=== PATIENT | female | born 1995 | race Caucasian/White ===

== ENCOUNTER 2023-03-14 21:12 | Outpatient (REF) | payer OTHER, SELFPAY ==
[2023-03-18 15:08] LABS: Age Gdln ACOG Testing Note (.); IGP, rfx Aptima HPV ASCU Note (.)
== END 2023-03-14 21:13 | disposition home or self-care (01) ==
LOC: LAB 21:12
PROVIDERS: PCP Family Medicine; Visit Provider Obstetrics & Gynecology
DX: Z12.4 Encounter for screening for malignant neoplasm of cervix (principal)
CPT/HCPCS: G0145

== ENCOUNTER 2024-04-23 20:05 | Outpatient (REF) | payer OTHER, SELFPAY | END 2024-04-23 20:06 | disposition home or self-care (01) | LOC: LAB 20:05 | PROVIDERS: PCP Family Medicine; Visit Provider Obstetrics & Gynecology | DX: Z01.419 Encounter for gynecological examination (general) (routine) without abnormal findings (principal) | CPT/HCPCS: 87624; 88175 ==

== ENCOUNTER 2025-05-08 14:19 | Outpatient (OUT) | payer OTHER, SELFPAY ==
--- OUTSIDE RECORDS SUMMARY | 2025-05-08 14:00 | XMS_ITS | Encounter Summary ---
Author Organization [facility] Address [address] [place] [address] Care Team Providers Care Stave Cutting Supervisor Name Role Phone Stephen Nolasco MD Primary Care Provider [phone] Reason for Visit * ReasonCommentsGynecologic Exam Encounter Details DateTypeDepartmentCare Team (Latest Contact Info)Vmxmdqaehqn34/05/2025 2:00 PM ESTOffice Visit [facility] [address] [facility] [place] [phone] Ken Floyd DO [address] [facility] [address] [place], [place] [id number] Well woman exam with routine gynecological exam; H/O: hysterectomy; PCOS (polycystic ovarian syndrome); Irritable; Menopausal symptoms Social History Tobacco UseTypesPacks/DayYears UsedDateSmoking Tobacco: BwvspxiYvscyojooz567.8 Started: 2007 Comments:Current Smoker, Viktor quency Unknown Alcohol UseStandard Drinks/WeekCommentsNever0 (1 standard drink = 0.6 oz pure alcohol)caffeine: 2-3 glasses a week teaCommentsNoSex and Gender InformationValueDate RecordedSex Assigned at RlcknEagflr60/10/2023 11:44 AM EDT Legal TifHwtycb84/15/2023 7:06 PM EDTGender XyrbhgpvMhqvws38/10/2023 11:44 AM EDTSexual HynkyitgucaNhknflye78/10/2023 11:44 AM EDTdocumented as of this encounter Last Filed Vital Signs Vital SignReadingTime TakenCommentsBlood Vxgjjrfr891/7205/08/2025 1:41 PM EST Pulse--Temperature--Respiratory Rate--Oxygen Saturation--Inhaled Oxygen Concentration--Cbysae44.3 kg (155 lb)05/08/2025 1:41 PM RQTTrerlb753.8 cm (5' 10 )05/08/2025 1:41 PM ESTBody Mass Index22.24107/08/2024 1:41 PM ESTdocumented in this encounter Plan of Treatment DateTypeDepartmentCare Team (Latest Contact Info)Fhecrrvptaw49/11/2026 1:00 PM ESTProcedure Visit [facility] [address] [facility] [place] [phone] Ken Floyd DO [address] [facility] [place] [address] NameTypePriorityAssociated DiagnosesOrder SchedulePap SmearPathology and CytologyRoutine Well woman exam with routine gynecological exam Ordered: 05/08/2025HPV DNA probe, amplifiedMicrobiologyRoutine Well woman exam with routine gynecological exam Ordered: 05/08/2025hCG, quantitative, pregnancyLabRoutine PCOS (polycystic ovarian syndrome) Ordered: 05/08/2025TSHLabRoutine PCOS (polycystic ovarian syndrome) Ordered: 05/08/2025T4, freeLabRoutine PCOS (polycystic ovarian syndrome) Ordered: 05/08/2025BC and differentialLabRoutine PCOS (polycystic ovarian syndrome) Ordered: 05/08/2025Follicle stimulating hormoneLabRoutine PCOS (polycystic ovarian syndrome) Ordered: 05/08/2025Luteinizing hormoneLabRoutine PCOS (polycystic ovarian syndrome) Ordered: 05/08/2025Hemoglobin W8mXgjDgqzqoi H/O: hysterectomy Irritable Menopausal symptoms Ordered: 05/08/2025DHEA-sulfateLabRoutine PCOS (polycystic ovarian syndrome) Ordered: 05/08/2025DHEALabRoutine PCOS (polycystic ovarian syndrome) Expected: 05/08/2025 (Approximate), Expires: 05/08/2026EstradiolLabRoutine H/O: hysterectomy Irritable Menopausal symptoms Ordered: 05/08/2025ProgesteroneLabRoutine H/O: hysterectomy Irritable Menopausal symptoms Ordered: 05/08/2025documented as of this encounter Visit Diagnoses Diagnosis Well woman exam with routine gynecological exam Routine gynecological examination H/O: hysterectomy Acquired absence of both cervix and uterus PCOS (polycystic ovarian syndrome) Polycystic ovaries Irritable Irritability Menopausal symptoms Symptomatic menopausal or female climacteric states documented in this encounter Care Teams Team MemberRelationshipSpecialtyStart DateEnd Date Stephen Nolasco MD [address] [place] [address] PCP - GeneralGeneral Practice03/14/23documented as of this encounter
--- OUTSIDE RECORDS SUMMARY | 2025-05-08 14:27 | XMS_ITS | Encounter Summary ---
Author Organization [facility] Address [address] [place] [address] Care Team Providers Care Dialysis Registered Nurse Name Role Phone Stephen Nolasco MD Primary Care Provider [phone] Encounter Details DateTypeDepartmentCare Team (Latest Contact Info)Vzmoagacfgh70/05/2025Travel Social History Tobacco UseTypesPacks/DayYears UsedDateSmoking Tobacco: FxtpfyqOigyeofajo613.8 Started: 2007 Comments:Current Smoker, Viktor quency Unknown Alcohol UseStandard Drinks/WeekCommentsNever0 (1 standard drink = 0.6 oz pure alcohol)caffeine: 2-3 glasses a week teaCommentsNoSex and Gender InformationValueDate RecordedSex Assigned at HxallQusncn03/10/2023 11:44 AM EDT Legal QybTwzmyy99/15/2023 7:06 PM EDTGender KkohwfquOebmwj88/10/2023 11:44 AM EDTSexual TqmzggqmknhCsompvbo44/10/2023 11:44 AM EDTdocumented as of this encounter Plan of Treatment DateTypeDepartmentCare Team (Latest Contact Info)Gosvtpnpobl67/11/2026 1:00 PM ESTProcedure Visit [facility] [address] [place] [address] Ken Floyd DO [address] [place] [address] documented as of this encounter Visit Diagnoses Not on filedocumented in this encounter Care Teams Team MemberRelationshipSpecialtyStart DateEnd Date Stephen Nolasco MD [address] [place], [place] [phone] PCP - GeneralGeneral Practice03/14/23documented as of this encounter
--- OUTSIDE RECORDS SUMMARY | 2025-05-08 14:27 | XMS_ITS | Encounter Summary ---
Author Organization [facility] Address [address] [facility] [facility], [address] [place] [address] Care Team Providers Care Assembler Fitter Name Role Phone Stephen Nolasco DO Primary Care Provider Encounter Details DateTypeDepartmentCare Team (Latest Contact Info)Bqewcpiyxre69/23/2025Results Follow-Up [facility] [address] [place], [place] [phone] Stephen Nolasco DO [address] [place] [address] Social History Tobacco UseTypesPacks/DayYears UsedDateSmoking Tobacco: Some DlgzLeoafefbxi728.8 Started: 07/04/2007Smokeless Tobacco: CurrentAlcohol UseStandard Drinks/Week CommentsYes2 (1 standard drink = 0.6 oz pure alcohol)sociallyOverall Financial Resource Strain (CARDIA)AnswerDate RecordedHow hard is it for you to pay for the very basics like food, housing, medical care, and heating?Not hard at all 04/12/2023HQ-2AnswerDate RecordedPHQ-9 Total Nwbzw268PRAPARE - TransportationAnswerDate RecordedLack of Transportation (Medical)Not on file 04/12/2023In the past 12 months, has lack of transportation kept you from meetings, work, or from getting things needed for daily living?No04/12/2023 Housing Stability Vital SignAnswerDate RecordedUnable to Pay for Housing in the Last YearNot on file04/12/2023Number of Places Lived in the Last YearNot on file 10/10/2023In the last 12 months, was there a time when you did not have a steady place to sleep or slept in ashelter (including now)?No04/12/2023Housing Stability Vital SignAnswerDate RecordedIn the last 12 months, was there a time when you were not able to pay the mortgage or rent on time?No04/23/2025In the past 12 months, how many times have you moved where you were living? At any time in the past 12 months, were you homeless or living in a longterm (including now)?No04/23/2025UDIT-CAnswerDate RecordedQ1: How often do you have a drink containing alcohol?Never04/23/2025Q2: How many drinks containing alcohol do you have on a typical day when you are drinking?Patient does not drink 04/23/2025Q3: How often do you have six or more drinks on one occasion?Never 04/23/2025Hunger Vital SignAnswerDate RecordedWithin the past 12 months, you worried that your food would run out before you got the money to buymore.Never true04/23/2025Within the past 12 months, the food you bought just didn't last and you didn't have money to get more.Never true04/23/2025PRAPARE - TransportationAnswerDate RecordedIn the past 12 months, has lack of transportation kept you from medical appointments or from getting medications?No 04/23/2025In the past 12 months, has lack of transportation kept you from meetings, work, or from getting things needed for daily living?No04/23/2025HC UtilitiesAnswerDate RecordedIn the past 12 months has the electric, gas, oil, or water company threatened to shut off services in your home?No04/23/2025 Interpersonal Safety Domain Source: IP Abuse ScreeningAnswerDate Recorded Physical tlrusEopkcu45/29/2025Verbal nyxzyUpfgjb20/29/2025Emotional abuseDenies 08/01/2024Financial blgfwUtmdxj03/29/2025Sexual bwfctGotbkd49/29/2025 CommentsNoSex and Gender InformationValueDate RecordedSex Assigned at Jnktde45/ 9:11 AM EDTLegal MpfRsgngj23/06/2019 9:47 AM EDTGender Identity Gliryy2704/16/2025 9:11 AM EDTSexual VfwfrkozjwiBfezuxth91/14/2025 9:11 AM EDT documented as of this encounter Plan of Treatment DateTypeDepartmentCare Team (Latest Contact Info)Oyemfsgjzaj98/22/2026 10:30 AM EDTOffice Visit [facility] [address] [place] [address] Stephen Nolasco DO [address] [place] [address] Annual physicaldocumented as of this encounter Visit Diagnoses Not on filedocumented in this encounter Care Teams Team MemberRelationshipSpecialtyStart DateEnd Date Stephen Nolasco DO [address] [place] [address] PCP - GeneralFamily Zloicojy75/10/23documented as of this encounter
--- OUTSIDE RECORDS SUMMARY | 2025-05-08 14:27 | XMS_ITS | Clinical Summary ---
Author Organization [facility] Address [address] [place] [address] Care Team Providers Care Photo Mask Inspector Name Role Phone No, Physician Primary Care Provider Unavailabl e Allergies Active AllergyReactionsCriticalityNoted DateCommentsCodeineGI Intolerance 12/23/20187201BwfmtqwfthtDtzjw02/22/2430QalujewfXxpak89/22/2019DiazepamHives 12/23/2018 Medications MedicationSigDispense QuantityRefillsLast FilledStart DateEnd DateStatus multivitamin (THERAGRAN) per tablet Take 1 tablet by mouth daily .Active Social History Tobacco UseTypesPacks/DayYears UsedDateSmoking Tobacco: Every DaySmokeless Tobacco: NeverAlcohol UseStandard Drinks/WeekCommentsNever0 (1 standard drink = 0.6 oz pure alcohol)AUDIT-CAnswerDate RecordedFrequency of Alcohol Consumption Never12/23/2018Average Number of DrinksNot on file12/23/2018Frequency of Binge DrinkingNot on file12/23/2018CommentsNoSex and Gender InformationValue Date RecordedSex Assigned at BirthNot on fileLegal BgfVqccnb55/22/2019 8:58 PM EDTGender IdentityNot on fileSexual OrientationNot on file Last Filed Vital Signs Vital SignReadingTime TakenCommentsBlood Vgaigwvz630/6906 1:15 AM EDT Fytqh0198 1:15 AM KNKFjwdoarsmbp14.7 ??C (98.1 ??F)12/24/2018 1:00 AM EDTRespiratory Pfju306412/24/2018 1:15 AM EDTOxygen Usdoxpgvqf47%12/24/2018 1:15 AM EDTInhaled Oxygen Concentration--Uxbbhk28 kg (130 lb)12/23/2018 9:02 PM EDT Zlopqm598.7 cm (5' 8 )12/23/2018 9:02 PM EDTBody Mass Index19.77012/23/2018 9:02 PM EDT Plan of Treatment Health MaintenanceDue DateLast DoneCommentsMMR Vaccines (1 of 1 - Standard series)1994Wellness Visit1996Depression Screening/Follow-Up (PHQ-2/9)2005Varicella Vaccines (1 of 2 - 13+ 2-dose series)2006HIV Scjdparol08/15/2008Hepatitis C Cymbeehee64/15/2011Hepatitis B Vaccines (1 of 3 - 19+ 3-dose series)2012Tetanus/Diphtheria/Pertussis (1 - Tdap)2012Pap Smear2014HPV Vaccines (1 - 3-dose SCDM series)2020Cervical Cancer Gqdvtmjpz46/15/2023HPV/Bckowo293COVID-19 Vaccine (1 - season) 2025Influenza Vaccine (#1)2025Zoster Vaccines (1 of 2)2043RSV Vaccines (1 - 1-dose 75+ series)2068HIB VaccinesAged OutNo longer eligible based on patient's age to complete this topicHepatitis A VaccinesAged OutNo longer eligible based on patient's age to complete this topicIPV VaccinesAged OutNo longer eligible based on patient's age to complete this topicMeningococcal ACWY VaccineAged OutNo longer eligible based on patient's age to complete this topicMeningococcal B VaccineAged OutNo longer eligible based on patient's age to complete this topicPneumococcal VaccineAged OutNo longer eligible based on patient's age to complete this topicRotavirus VaccinesAged OutNo longer eligible based on patient's age to complete this topic Insurance MemberSubscriberPlan / Payer (Effective 2018-Present)Name:Ozzie Shea Relation to Subscriber:SelfName:Ozzie Shea Payer ID:Not on file Group ID:[id number] Type:Not on file Address: [place] [id number] Care Teams Team MemberRelationshipSpecialtyStart DateEnd Date No, Physician [facility] PCP - General12/23/18
--- OUTSIDE RECORDS SUMMARY | 2025-05-08 14:27 | XMS_ITS | Clinical Summary ---
Author Organization [facility] Address [address] [facility] [place] [address] Care Team Providers Care Fuels Sales Representative Name Role Phone Stephen Nolasco MD Primary Care Provider [phone] Allergies Active AllergyReactionsCriticalityNoted FchnSrrvjhwnFbtplj10/23/2019 Other reaction(s): Unknown Other Reaction(s): Anaphylactic shock Romano Flavoring Agent (Non-Screening)RjtjemxjsmhLdap75/07/2023odeineGI intolerance,JalcTja3212/23/2018 Other Reaction(s): Dyspepsia Other reaction(s): Unknown Other Reaction(s): Dyspepsia, GI Intolerance, Unknown Other Reaction(s): GI Intolerance DiazepamGI intolerance,Hives,FcxdZwd3012/23/2018 Other Reaction(s): rash/vomiting Other reaction(s): Unknown Other Reaction(s): Unknown HydrocodoneHives,AalgKoa0312/23/2018 Other reaction(s): Unknown Other Reaction(s): Unknown, Unknown Hydrocodone-AcetaminophenHives,UpmoQwf4303/10/20230709LpwkaflkldngvpfSlsvHzr38/07/2023 CwdoesopzNvbiGrg32/28/2022 Other Reaction(s): Unknown TramadolHives,QlzbHwz1312/23/2018 Other reaction(s): Unknown Other Reaction(s): Unknown, Vomiting Medications MedicationSigDispense QuantityRefillsLast FilledStart DateEnd DateStatus propranolol (Inderal) 20 MG tablet Take 20 mg by mouth in the morning.03/08/2023ctive magnesium oxide (Mag-Ox) 400 (241.3 Mg) MG tablet Take 400 mg by mouth in the morning.07/01/2022ctive Encounters DateTypeDepartmentCare MjikKhbobxtsvnv42/05/2025 2:00 PM ESTOffice Visit [facility] [place] [address] [place] [address] Ken Floyd DO Well woman exam with routine gynecological exam; H/O: hysterectomy; PCOS (polycystic ovarian syndrome); Irritable; Menopausal orhqpbst25/05/2025amboo flowsheet [facility] [address] [place] [address] Ken Floyd DO 05/08/2025Travelfrom Last 3 Months Family History Medical HistoryRelationNameCommentsDiabetesMaternal GrandfatherMental illness Paternal GrandmotherPsoriasisNeg HxRelationNameStatusCommentsDaughterAliveFather AliveMaternal GrandfatherAliveMaternal GrandmotherAliveMotherAlivePaternal GrandfatherAlivePaternal GrandmotherAliveSiblingAliveSonAlive Social History Tobacco UseTypesPacks/DayYears UsedDateSmoking Tobacco: QazkuhgPwrlebvqsy521.8 Started: 2007 Tobacco Cessation:Counseling Given: Not Answered Comments:Current Smoker, Frequency Unknown Alcohol UseStandard Drinks/WeekCommentsNever0 (1 standard drink = 0.6 oz pure alcohol)caffeine: 2-3 glasses a week teaCommentsNoSex and Gender InformationValueDate RecordedSex Assigned at ZtxzdPuaaid58/10/2023 11:44 AM EDT Legal SqdOtxohz67/15/2023 7:06 PM EDTGender QkzjghudJfamqg57/10/2023 11:44 AM EDTSexual QnoscfpmfjpHqbksowb68/10/2023 11:44 AM EDT Last Filed Vital Signs Vital SignReadingTime TakenCommentsBlood Bztrjysr876/7205/08/2025 1:41 PM EST Pulse--Temperature--Respiratory Rate--Oxygen Saturation--Inhaled Oxygen Concentration--Fdrgpr78.3 kg (155 lb)05/08/2025 1:41 PM VBHCsaump256.8 cm (5' 10 )05/08/2025 1:41 PM ESTBody Mass Index22.241111/2024 1:41 PM EST Plan of Treatment DateTypeDepartmentCare Team (Latest Contact Info)Oojnkhxuroo73/11/2026 1:00 PM ESTProcedure Visit [facility] [address] [place] [address] Ken Floyd DO [address] [facility] [place] [address] Insurance Care Teams Team MemberRelationshipSpecialtyStart DateEnd Date Stephen Nolasco MD [address] [place] [address] PCP - GeneralGeneral Practice03/14/23
--- OUTSIDE RECORDS SUMMARY | 2025-05-08 14:27 | XMS_ITS | Clinical Summary ---
Author Organization [facility] Address [address] [place] [address] Care Team Providers Care Software Educator Name Role Phone Stephen Nolasco DO Primary Care Provider [phone] Allergies Active AllergyReactionsCriticalityNoted BggdTwxpgxxlOrtoie97/23/2019 Other reaction(s): Unknown OfrrerkKhqbdqvjw79/22/2019 Other reaction(s): Unknown LispmtdiGqaky93/22/2019 Other reaction(s): Unknown AtlofbxrhaiErgyk50/22/2019 Other reaction(s): Unknown Hydrocodone-Tccevjtzldnsf82/05/7240Ydzmylikndqdatd88/05/2013TramadolHives 12/23/2018 Other reaction(s): Unknown Medications MedicationSigDispense QuantityRefillsLast FilledStart DateEnd DateStatus Premarin 0.3 MG tablet Take 0.3 mg by mouth daily.01/07/2021ctive Multiple Vitamin (Multi-Vitamins) tablet Take 1 tablet by mouth At bedtime.Active bacitracin 500 UNIT/GM Ointment Apply to burn site twice daily 28 g 1Active Social History Tobacco UseTypesPacks/DayYears UsedDateSmoking Tobacco: Every DayCigarettes Smokeless Tobacco: NeverAlcohol UseStandard Drinks/WeekCommentsNot Currently0 (1 standard drink = 0.6 oz pure alcohol)CommentsNoSex and Gender InformationValueDate RecordedSex Assigned at BirthNot on fileLegal SexFemale 01/13/2021 8:02 PM EDTGender IdentityNot on fileSexual OrientationNot on file Last Filed Vital Signs Vital SignReadingTime TakenCommentsBlood Kjvjudsw908/6707/ 8:15 PM EDT Ahfsj2757/ 8:15 PM IBZSgswctpzlab24.9 ??C (98.4 ??F)01/13/2021 8:15 PM EDTRespiratory Bsxf012001/13/2021 8:15 PM EDTOxygen Qlhjuylsje81%01/13/2021 8:15 PM EDTInhaled Oxygen Concentration--Weight--Height--Body Mass Index-- Plan of Treatment Health MaintenanceDue DateLast DoneCommentsHEPATITIS C VIRUS KRFYVXGBK1993 RUGLGVH93 1993HIV SCREENING XUPQZWXWGG74/15/2008HEP B VACCINE (1 of 3 - 19+ 3-dose series)2012TDAP (ADULT)2012CERVICAL CANCER SCREENING KVWEPSLKYF00/15/2014HPV VACCINE (1 - 3-dose SCDM series)2020COVID-19 VACCINE (2024- season)2025INFLUENZA VACCINE (#1)2025 PNEUMOCOCCAL VACCINE SERIESAged OutNo longer eligible based on patient's age to complete this topic Insurance Care Teams Team MemberRelationshipSpecialtyStart DateEnd Date Stephen Nolasco DO [address] [place] [address] [facility] - [facility]21
--- OUTSIDE RECORDS SUMMARY | 2025-05-08 14:27 | XMS_ITS | Clinical Summary ---
Author Organization [email or web address] [facility] tem Address [id number] [address] [place] [address] Care Team Providers Care Production Hand Name Role Phone Unavailable Primary Care Provider Unavailabl e Allergies Active AllergyReactionsCriticalityNoted IhilFspvbqgsVfdulaeRairSxn93/22/2019 Other Reaction(s): GI Intolerance TtxlpkgrBgoen55/22/8945VjmkvytsmpsFnbmd18/22/5642Feaewxpyhcjwegu45/10/2024 Cyuhuclye69/10/0927PppcwapxVluya05/22/2019 Medications MedicationSigDispense QuantityRefillsLast FilledStart DateEnd DateStatus magnesium oxide (MAGOX) 400 mg tablet Take 1 tablet (400 mg total) by mouth in the morning.07/13/2023ctive propranoloL (INDERAL) 20 mg tablet Take 1 tablet (20 mg total) by mouth in the morning.04/12/2024ctive cyanocobalamin (VITAMIN B-12) 1,000 mcg/mL injection Inject 1 mL (1,000 mcg total) into the appropriate muscle every 30 (thirty) days.04/12/2024ctive Social History Tobacco UseTypesPacks/DayYears UsedDateSmoking Tobacco: Every Day Vaping/E-cigarettesSmokeless Tobacco: Never Tobacco Cessation:Ready to Q uit: Not Asked; Counseling Given: Not Answered ChildcareAnswerDate EeuebwgmGgsdhufnsZnqkcja30/10/2019EmploymentAnswerDate YgcdidibKlmadeyuysYhovxzx06/10/2019Hunger ScreeningAnswerDate RecordedWithin the past 12 months we worried whether our food would run out before we got money to buy more.Never True06/12/2024Within the past 12 months the food we bought just didn't last and we didn't have money to get more.Never True4Purpose - LifeAnswerDate RecordedPurpose and direction in lbrdOywpckr54/10/2021 CommentsUnknownSex and Gender InformationValueDate RecordedSex Assigned at Not on fileLegal AexDkcjlv14/04/2015 12:37 PM EDTGender IdentityNot on file Sexual OrientationNot on file Last Filed Vital Signs Vital SignReadingTime TakenCommentsBlood Qhlvosnu335/6806/12/2024 10:14 PM EST Ncbmf433406/12/2024 10:38 PM OKFMokptcumyps18.2 ??C (97.2 ??F)06/12/2024 10:14 PM ESTRespiratory Snwx944406/12/2024 10:38 PM ESTOxygen Ckighdbgwu022%06/12/2024 10:30 PM ESTInhaled Oxygen Concentration--Djeszp30.8 kg (165 lb)06/12/2024 10:14 PM NGQFhfahp041.8 cm (5' 10 )06/12/2024 10:14 PM ESTBody Mass Index23.68 06/12/2024 10:14 PM EST Plan of Treatment Not on file Medical Devices Not on file Insurance
--- OUTSIDE RECORDS SUMMARY | 2025-05-08 14:27 | XMS_ITS | Clinical Summary ---
Author Organization [facility] Address [address] [place] [id number] Care Team Providers Care Credit And Collection Manager Name Role Phone Negro Nolascoory Poppy QUINTERO Primary Care Provider [phone] Allergies Active AllergyReactionsCriticalityNoted DateCommentsCherry FlavorAnaphylaxis 12/24/20183683SkljfwwWvmbjth19/23/1065HjwulcskuvibfmxSwqs77/24/2022Hydrocodone Bmsknza4712/24/20186115GzflbgclrCzxjxzb62/28/0106RwundiozRggkygc00/23/2019Diazepam Vvadzud6112/24/2018 Medications MedicationSigDispense QuantityRefillsLast FilledStart DateEnd DateStatus hydrOXYzine HCl (ATARAX) 25 mg tablet Take 25 mg by mouth three times daily as needed for anxiety.05/21/2020Active multivitamin tablet Take 1 tablet by mouth once daily.Active acyclovir (ZOVIRAX) 400 mg tablet Take 1 tablet by mouth twice daily as needed.Active cyanocobalamin 1,000 mcg/mL inject 1 (ONE) ml intramuscularly every month01/11/2022ctive EPINEPHrine (EPIPEN) 0.3 mg/0.3 mL auto-injector Inject 0.3 mg intramuscularly.02/03/2021ctive BD LUER-JUN SYRINGE 3 mL 25 gauge x 1 USE DIRECTED ONCE MONTHLY WITH VITAMIN B1201/11/2022ctive ondansetron (ZOFRAN) 4 mg tablet Indications:Intractable chronic post-traumatic headache,Intractable chronic migraine without aura and without status migrainosusTake 1 tablet by mouth every 8 hours as needed for nausea/vomiting. 20 tablet ctive topiramate (TOPAMAX) 25 mg tablet Indications:Intractable chronic post-traumatic headache,Intractable chronic migraine without aura and without status migrainosusTake 50-100mg daily as tolerated. 120 tablet ctive propranolol (INDERAL) 20 mg tablet Take 1 tablet by mouth once daily. 30 tablet 11003/08/2023ctive eletriptan (RELPAX) 40 mg tablet Take 1 tablet by mouth as needed. TAKE AT ONSET OF MIGRAINE HEADACHE. May repeat dose in 2 hours ifneeded. No more than 2 tablets in 24 hours. 9 tablet ctive magnesium oxide (MAG-OX) 400 mg (241.3 mg magnesium) tablet Take 1 tablet by mouth once daily. 30 tablet ctive Active Problems ProblemNoted DateDiagnosed DateIntractable post-traumatic qucuptbc94/26/2023 Intractable chronic migraine without aura and without status migrainosus 07/29/2022ilateral occipital ytbshkmoj65/26/2023AD (generalized anxiety disorder)07/29/2022sychogenic nonepileptic wxhqyhz7803/30/20222635Emvccpt67/26/2022 Seizure-like cznpsadi12/25/2022 Social History Tobacco UseTypesPacks/DayYears UsedDateSmoking Tobacco: Every DayCigarettes Smokeless Tobacco: Never Tobacco Cessation:Ready to Q uit: Not Asked Alcohol UseStandard Drinks/WeekCommentsYes0 (1 standard drink = 0.6 oz pure alcohol)rarePHQ-2AnswerDate RecordedPHQ-2 evcap858rea Deprivation Index AnswerDate RecordedNational Score (1-100), lower number is lower risk89 03/08/2023State Score (1-10), lower number is lower pija53503/08/2023ata from: https://www.neighborhoodatlas.medicine.[facility].edu/. Last address used for [address] [facility]03/08/2023CommentsNoSex and Gender Information ValueDate RecordedSex Assigned at PcnqoKfioel92/01/2022 11:04 AM EDTLegal Sex Dlkioz8910/25/2014 3:08 PM EDTGender OjtojndoAaebfu26/01/2022 11:04 AM EDTSexual LusdpudmpxsDcfxopli08/01/2022 11:04 AM EDT Last Filed Vital Signs Vital SignReadingTime TakenCommentsBlood Hotkcfuw530/75003/08/2023 9:17 AM EDT Kknxs5650/05/2023 9:17 AM HLWSsbpowmsqfd51.8 ??C (98.2 ??F)08/20/2022 9:33 AM ESTRespiratory Ggfr107003/30/2022 4:00 PM EDTOxygen Casghjzlhy70%03/08/2023 9:17 AM EDTInhaled Oxygen Concentration--Rziinm48.4 kg (144 lb 3.2 oz)03/08/2023 9:17 AM NTFApqaej780.8 cm (5' 10 )03/08/2023 9:17 AM EDTBody Mass Index20.69 03/08/2023 9:17 AM EDT Plan of Treatment Health MaintenanceDue DateLast DoneCommentsDepression Prpuhajbb60/15/2011HIV Chtybkbdw25/15/2011Hepatitis C Mmtfbwwpn23/15/2011Hepatitis B Vaccine (1 of 3 - 19+ 3-dose series)2012Pneumococcal Vaccine (1 of 2 - PCV)2012 Cervical Cancer Uujotbqdc70/15/2014HPV Vaccine (1 - 3-dose SCDM series) 2020Covid-19 Vaccine (1 - season)2025Influenza Vaccine (#1) 2025DTaP,Tdap,Td Vaccine (2 - Td or Tdap) Insurance * Guarantor: Ozzie Shea TypeRelation to PatientDate of PhoneBilling VamkvljUbxhxzskGkkf1993 [address] [facility] [address] [place] [address] MemberSubscriberPlan / Payer (Effective 2022-Present)Name:Ozzie Shea Relation to Subscriber:SelfName:Ozzie Shea Payer ID:[id number] (NAIC) Group ID:[id number] Type:Medicaid Address: [place] [id number] Care Teams Team MemberRelationshipSpecialtyStart DateEnd Date Stephen Nolasco DO PCP - GeneralFamily Medicine10/25/14
--- OUTSIDE RECORDS SUMMARY | 2025-05-08 14:27 | XMS_ITS | Encounter Summary ---
Author Organization [facility] Address [address] [place] [address] Care Team Providers Care Starch Dumper Name Role Phone Stephen Nolasco MD Primary Care Provider [phone] Encounter Details DateTypeDepartmentCare Team (Latest Contact Info)Ndjtkflcuip58/05/2025amboo flowsheet [facility] [address] [place] [address] Ken Floyd DO [address] [facility] [address] [place], [place] [address] Social History Tobacco UseTypesPacks/DayYears UsedDateSmoking Tobacco: LwivyvvXlopmspfab807.8 Started: 2007 Comments:Current Smoker, Viktor quency Unknown Alcohol UseStandard Drinks/WeekCommentsNever0 (1 standard drink = 0.6 oz pure alcohol)caffeine: 2-3 glasses a week teaCommentsNoSex and Gender InformationValueDate RecordedSex Assigned at QimvoNrzztz84/10/2023 11:44 AM EDT Legal QxnWeoobf02/15/2023 7:06 PM EDTGender HpfiujbqVcpejn47/10/2023 11:44 AM EDTSexual EdqcdlsccwqSmnqfvkt14/10/2023 11:44 AM EDTdocumented as of this encounter Plan of Treatment DateTypeDepartmentCare Team (Latest Contact Info)Psbacaivqbc43/11/2026 1:00 PM ESTProcedure Visit [facility] [address] [place] [address] Ken Floyd, DO [address] [place] [address] documented as of this encounter Visit Diagnoses Not on filedocumented in this encounter Care Teams Team MemberRelationshipSpecialtyStart DateEnd Date Stephen Nolasco MD [address] [place] [address] PCP - GeneralGeneral Practice03/14/23documented as of this encounter
--- OUTSIDE RECORDS SUMMARY | 2025-05-08 14:27 | XMS_ITS | Clinical Summary ---
Author Organization [facility] Address [address] [facility], [address] [place] [address] Care Team Providers Care Hybrid Tester Name Role Phone Stephen Nolasco Primary Care Provider [phone] Allergies Active AllergyReactionsCriticalityNoted ZacuYojbzeglCyhkztsMznnKjj79/10/2024 Lhemjccqhrycslw32/10/6135Jifizsyto88/10/2024 Medications MedicationSigDispense QuantityRefillsLast FilledStart DateEnd DateStatus magnesium oxide (MAG-OX) 400 (240 Mg) MG tablet Take 1 tablet by mouth daily03/24/2023ctive Multiple Vitamin (MULTI-VITAMINS) TABS Take 1 tablet by mouth nightlyActive EPINEPHrine (EPIPEN) 0.3 MG/0.3ML SOAJ injection Inject 0.3 mLs into the skin once for 1 dose 1 each ctive propranolol (INDERAL) 20 MG immediate release tablet Indications:Chronic migraine w/o aura w/o status migrainosus, not intractable TAKE 1 TABLET BY MOUTH DAILY 90 tablet 5Active cyanocobalamin 1000 MCG/ML injection Indications:B12 deficiencyInject 1 mL into the muscle every 30 days 6 mL 1105Active SYRINGE-NEEDLE, DISP, 3 ML 25G X 1 3 ML MISC Indications:B12 deficiency1 each by Does not apply route every 30 days 3 each 5Active SYRINGE-NEEDLE, DISP, 3 ML (B-D 3CC LUER-JUN SYR 23GX1 ) 23G X 1 3 ML MISC Indications:B12 deficiencyUSE DIRECTED WITH vitamin b12 injections once a month 3 each Discontinued(Therapy completed) cyanocobalamin 1000 MCG/ML injection Indications:B12 deficiencyINJECT 1ML INTRAMUSCULARLY EVERY 30 DAYS 3 mL Discontinued(REORDER) Active Problems No known active problems Encounters DateTypeDepartmentCare OniuLhluyuiiild88/23/2025Results Follow-Up [address] [address] Stephen Nolasco DO 04/23/2025 11:00 AM EDTOffice Visit [address] [address] Stephen Nolasco DO Chronic fatigue (Primary Dx); B12 deficiency; Iron qabwharciy53/21/2025Orders Only [address] [address] Stephen Nolasco DO Chronic fatigue; Iron deficiency; B12 anacgpikmc36/31/2025Refill [address] [address] Stephen Nolasco DO Medication Refillfrom Last 3 Months Immunizations ImmunizationAdministration DatesNext CrzPMP2512/23/1993,1993,1993DTaP bssundz7207/30/1997,09/22/1994HPV (Human Papilloma Virus)Fyxebxn6006/02/2007, 12/30/2006,10/28/2006Hep B, ENGERIX-B, RECOMBIVAX-HB, (age - 19y), IM, 0.5mL1993,1993,1993Hib gcpmdjw7909/22/1994,1993,1993 Influenza Virus Vukoxre7004/11/2003MMR, PRIORIX, M-M-R II, (age 12m+), SC, 0.5mL 05/27/1999,09/27/1994Meningococcal ACWY, MENACTRA (MenACWY-D), (age 9m-55y), IM, 0.5mL10/25/2008Poliovirus, IPOL, (age 6w+), SC/IM, 0.5mL07/30/1997,1993, 1993,1993TDaP, ADACEL (age 10y-64y), BOOSTRIX (age 10y+), IM, 0.5mL 01/23/2016,10/25/2008 Family History Medical HistoryRelationNameCommentsAllergy (Severe)Brother 1Jonathan cothern DiabetesBrother 1Jonathan cothernImmune DisorderBrother 1Jonathan cothernHigh Blood PressureBrother 2Thomas boatrightDiabetesMaternal GrandfatherLarry felver RelationNameStatusCommentsBrother 1Jonathan cothernBrother 2Thomas sallie AliveMaternal GrandfatherLarry felver Social History Tobacco UseTypesPacks/DayYears UsedDateSmoking Tobacco: Some PvqkPsjqepvfug113.8 Started: 07/04/2007Smokeless Tobacco: Current Tobacco Cessation:Ready to Q uit: No; Counseling Given: Yes Alcohol UseStandard Drinks/WeekCommentsYes2 (1 standard drink = 0.6 oz pure alcohol)sociallyOverall Financial Resource Strain (CARDIA)AnswerDate RecordedHow hard is it for you to pay for the very basics like food, housing, medical care, and heating?Not hard at all04/12/2023HQ-2AnswerDate RecordedPHQ-9 Total Score1 04/16/2025PRAPARE - TransportationAnswerDate RecordedLack of Transportation (Medical)Not on file04/12/2023In the past 12 months, has lack of transportation kept you from meetings, work, or from getting things needed for daily living?No 04/12/2023Housing Stability Vital SignAnswerDate RecordedUnable to Pay for Housing in the Last YearNot on file04/12/2023Number of Places Lived in the Last YearNot on file04/12/2023In the last 12 months, was there a time when you did not have a steady place to sleep or slept in ashelter (including now)?No 04/12/2023Housing Stability Vital SignAnswerDate RecordedIn the last 12 months, was there a time when you were not able to pay the mortgage or rent on time?No 04/23/2025In the past 12 months, how many times have you moved where you were living?t any time in the past 12 months, were you homeless or living in a fpc (including now)?No04/23/2025UDIT-CAnswerDate RecordedQ1: How often do you have a drink containing alcohol?Never04/23/2025Q2: How many drinks containing alcohol do you have on a typical day when you are drinking?Patient does not drink04/23/2025Q3: How often do you have six or more drinks on one occasion?Never04/23/2025Hunger Vital SignAnswerDate RecordedWithin the past 12 months, you worried that your food would run out before you got the money to buy more.Never true04/23/2025Within the past 12 months, the food [...] Domain Source: IP Abuse ScreeningAnswerDate Recorded Physical nhlopQplakz50/29/2025Verbal sdshkNqolij71/29/2025Emotional abuseDenies 08/01/2024Financial nrhelEcaqpm20/29/2025Sexual bycclKwkata63/29/2025 CommentsNoSex and Gender InformationValueDate RecordedSex Assigned at Lcjbdj5904/16/2025 9:11 AM EDTLegal JtjLeabtz42/06/2019 9:47 AM EDTGender Identity Womhvv0004/16/2025 9:11 AM EDTSexual YvkhxapfmyrChbvssbj04/14/2025 9:11 AM EDT Last Filed Vital Signs Vital SignReadingTime TakenCommentsBlood Xvayjjyi300/8210 11:06 AM EDT Tvgys654404/23/2025 11:06 AM DHKRvcqqsecwdc54.4 ??C (97.5 ??F)04/23/2025 11:06 AM EDTRespiratory Mmgj187108/01/2024 12:30 PM ESTOxygen Kzrehhomop63%04/23/2025 11:06 AM EDTInhaled Oxygen Concentration--Todlci10.8 kg (153 lb 12.8 oz)04/23/2025 11:06 AM CPCZcujqh870.8 cm (5' 10 )04/23/2025 11:06 AM EDTBody Mass Index22.07 04/23/2025 11:06 AM EDT Plan of Treatment DateTypeDepartmentCare Team (Latest Contact Info)Vhhhtlylygd50/22/2026 10:30 AM EDTOffice Visit [facility] [address] [place] [address] Stephen Nolasco, [address] [place] [address] Annual physicalHealth MaintenanceDue DateLast DoneCommentsVaricella vaccine (1 of 2 - 13+ 2-dose series)2006HIV ibmouk1406/17/2008Hepatitis C screen 2011Pneumococcal 0-49 years Vaccine (1 of 2 - PCV)2012Flu vaccine (#1)/03/2003COVID-19 Vaccine (1 - season)2025 DTaP/Tdap/Td vaccine (8 - Td or Tdap)/, 10/25/2008, 07/30/1997, Additional history existsDepression Wpsjxe38, 04/16/2025Hepatitis B ifbcghcHjifswysh36/02/1994, 1993, 1993Hib gbhlyabOodmslwhk30/22/1995, 1993, 1993Polio vaccineCompleted 07/30/1997, 1993, 1993, Additional history existsHPV vaccine Cluddnacz01/30/2007, 12/30/2006, 10/28/2006Meningococcal (ACWY) vaccineAged Out 10/25/2008No longer eligible based on patient's age to complete this topic Hepatitis A vaccineAged OutNo longer eligible based on patient's age to complete this topicMeningococcal B vaccineAged OutNo longer eligible based on patient's age to complete this topic Procedures Procedure NamePriorityDate/TimeAssociated DiagnosisCommentsFERRITINRoutine 04/23/2025 11:40 AM EDT Iron deficiency TSH REFLEX TO KJ3Oihapdm40/21/2025 11:40 AM EDT Chronic fatigue VITAMIN B12 & WLRXYWKmmason31/21/2025 11:40 AM EDT Chronic fatigue B12 deficiency IRON AND IDYIRfafbtq52/21/2025 11:40 AM EDT Chronic fatigue Iron deficiency C-REACTIVE ZJNIOUUNlilekf36/21/2025 11:40 AM EDT Chronic fatigue COMPREHENSIVE METABOLIC ZAUAPIkgdpaq94/21/2025 11:40 AM EDT Chronic fatigue CBC WITH AUTO GFGLADLDYVOUJfnmbhk28/21/2025 11:40 AM EDT Chronic fatigue from Last 3 Months Results * (ABNORMAL) Vitamin B12 & Folate (04/23/2025 11:40 AM EDT)ComponentValueRef RangeTest MethodAnalysis TimePerformed AtPathologist SignatureVitamin B-240691 (H)232 - 1245 pg/mL04/24/2025 2:11 AM EDTMERCY LABORATORIESComment: Performed at [facility], [address] [place] [address] . Folate>40.0(H)4.8 - 24.2 ng/mL04/24/2025 2:11 AM EDTMTi-Bi TechnologyY LABORATORIESComment: Performed at [facility], [address] [place] [address] . Specimen (Source)Anatomical Location / LateralityCollection Method / Volume Collection TimeReceived TimeBloodBLOOD SPECIMEN / Skfksls6304/23/2025 11:40 AM EDT 04/23/2025 2:29 PM EDT Narrative Authorizing ProviderResult TypeResult StatusDameron Hospital DOCHEMISTRY ORDERABLESFinal ResultPerforming OrganizationAddressCity/State/ZIP CodePhone Number [facility] [address] [place] [address], [facility] [phone] [address], [facility] [phone] * TSH reflex to FT4 (04/23/2025 11:40 AM EDT)ComponentValueRef RangeTest Method Analysis TimePerformed AtPathologist SignatureTSH1.9000.440 - 3.860 uIU/mL 04/23/2025 3:23 PM [facility] LABComment: Free T4 will automatically reflex ??with a TSH result of <0.270 or >4.200 Specimen (Source)Anatomical Location / LateralityCollection Method / Volume Collection TimeReceived TimeBloodBLOOD SPECIMEN / Xwocrhk3704/23/2025 11:40 AM EDT 04/23/2025 2:32 PM EDT Narrative Authorizing ProviderResult TypeResult [facility] DOCHEMISTRY ORDERABLESFinal ResultPerforming OrganizationAddressCity/State/ZIP CodePhone Number [facility] [address] [place] [address], [facility] [phone] * (ABNORMAL) CBC with Auto Differential (04/23/2025 11:40 AM EDT)ComponentValue Ref RangeTest MethodAnalysis TimePerformed AtPathologist SignatureWBC6.54.8 - 10.8 K/uL04/23/2025 2:43 PM [facility] LABRBC4.03(L)4.20 - 5.40 M/uL04/23/2025 2:43 PM [facility] LABHemoglobin 14.112.0 - 16.0 g/dL04/23/2025 2:43 PM [facility] Cmryjacdwi20.137.0 - 47.0 %04/23/2025 2:43 PM [facility] NLDKXH642.0(H)79.4 - 94.8 fL04/23/2025 2:43 PM [facility] HWLZNI27.0(H)27.0 - 31.3 pg04/23/2025 2:43 PM [facility] IGAQNON24.333.0 - 37.0 %04/23/2025 2:43 PM [facility] RDW11.511.5 - 14.5 %04/23/2025 2:43 PM [facility] Styoihwhl788302 - 400 K/uL04/23/2025 2:43 PM [facility] LABNeutrophils %52.4%04/23/2025 2:43 PM [facility] Lymphocytes %39.0%04/23/2025 2:43 PM [facility] Monocytes %6.6%04/23/2025 2:43 PM [facility] Eosinophils %1.2%04/23/2025 2:43 PM [facility] Basophils %0.5%04/23/2025 2:43 PM [facility] Neutrophils Absolute3.41.4 - 6.5 K/uL04/23/2025 2:43 PM [facility] LABLymphocytes Absolute2.51.0 - 4.8 K/uL04/23/2025 2:43 PM [facility] LABMonocytes Absolute0.40.2 - 0.8 K/uL04/23/2025 2:43 PM [facility] LABEosinophils Absolute0.10.0 - 0.7 K/uL 04/23/2025 2:43 PM [facility] LABBasophils Absolute0.00.0 - 0.2 K/uL04/23/2025 2:43 PM [facility] LABSpecimen (Source)Anatomical Location / LateralityCollection Method / VolumeCollection TimeReceived TimeBloodBLOOD SPECIMEN / Svnswwx9504/23/2025 11:40 AM EDT 04/23/2025 2:31 PM EDT Narrative Authorizing ProviderResult TypeResult StatusDameron Hospital DOHEMATOLOGY ORDERABLESFinal ResultPerforming OrganizationAddressCity/State/ZIP CodePhone Number [facility] [address] [place] [address], [facility] [phone] * Iron and TIBC (04/23/2025 11:40 AM EDT)ComponentValueRef RangeTest Method Analysis TimePerformed AtPathologist ZljhlerrjTmox4414 - 145 ug/dL04/24/2025 1:33 AM EDTMERCY CGNISBXKZQHHMLNY992882 - 450 ug/dL04/24/2025 1:33 AM EDTMERCY LABORATORIESIron % Wxxmypgxbi7900 - 55 %04/24/2025 1:33 AM EDTMERCY ZMEDQIUBPOTUSNJE589866 - 347 ug/dL04/24/2025 1:33 AM EDTMERCY LABORATORIES Comment: [email or web address], [address] [place] [address] . Specimen (Source)Anatomical Location / LateralityCollection Method / Volume Collection TimeReceived TimeBloodBLOOD SPECIMEN / Aidhwbz6604/23/2025 11:40 AM EDT 04/23/2025 2:29 PM EDT Narrative Authorizing ProviderResult TypeResult StatusDameron Hospital DOCHEMISTRY ORDERABLESFinal ResultPerforming OrganizationAddressCity/State/ZIP CodePhone Number [facility] [address] [place] [address], [facility] [phone] [place] [address], [facility] [phone] * C-Reactive Protein (04/23/2025 11:40 AM EDT)ComponentValueRef RangeTest Method Analysis TimePerformed AtPathologist SignatureCRP<3.00.0 - 5.0 mg/L1 3:19 PM [facility] LABSpecimen (Source)Anatomical Location / LateralityCollection Method / VolumeCollection TimeReceived Time BloodBLOOD SPECIMEN / Egdznrl5604/23/2025 11:40 AM EDT1 2:33 PM EDT Narrative Authorizing ProviderResult TypeResult StatusDameron Hospital DOCHEMISTRY ORDERABLESFinal ResultPerforming OrganizationAddressty/State/ZIP CodePhone Number [facility] [address] [place] [address], [facility] [phone] * Ferritin (04/23/2025 11:40 AM EDT)ComponentValueRef RangeTest MethodAnalysis TimePerformed AtPathologist VcytvbgdgSvvdbaxv2162 - 150 ng/mL04/24/2025 1:33 AM EDKETTERING [facility] LABORATORIESComment: FERRITIN Reference Ranges: Adult Males ?? 20 - 60 years: ?30 - 400 ng/mL Adult females 17 - 60 years: ?13 - 150 ng/mL Adults greater than 60 years: ?? no established reference range Pediatrics: ??no established reference range Performed at [facility], [address] [place] [address] . Specimen (Source)Anatomical Location / LateralityCollection Method / Volume Collection TimeReceived TimeBloodBLOOD SPECIMEN / Kuxlbgr4004/23/2025 11:40 AM EDT 04/23/2025 2:29 PM EDT Narrative Authorizing ProviderResult TypeResult [facility] DOCHEMISTRY ORDERABLESFinal ResultPerforming OrganizationAddressty/State/ZIP CodePhone Number [facility] [address] [place] [address], [facility] [phone] [place] [address], [facility] [phone] * (ABNORMAL) Comprehensive Metabolic Panel (04/23/2025 11:40 AM EDT)Component ValueRef RangeTest MethodAnalysis TimePerformed AtPathologist SignatureSodium 313829 - 144 mEq/L1 3:23 PM [facility] Potassium4.03.4 - 4.9 mEq/L1 3:23 PM [facility] EAQJpodhnia30703 - 107 mEq/L1 3:23 PM [facility] RHGAN36536 - 31 mEq/L1 3:23 PM [facility] Anion Unl544 - 15 mEq/L1 3:23 PM [facility] Ulldrhf5359 - 99 mg/dL04/23/2025 3:23 PM [facility] VPQ092 - 20 mg/dL04/23/2025 3:23 PM [facility] Creatinine0.97(H)0.50 - 0.90 mg/dL04/23/2025 3:23 PM [facility] LABEst, Glom Filt Rate79.7>6004/23/2025 3:23 PM [facility] LABComment: Pediatric calculator link https://www.kidney.org/professionals/kdoqi/gfr_calculatorped Effective Apr 05, 2022 These results are not intended for use in patients <18 years of age. eGFR results are calculated without a race factor using the 2020 CKD-EPI equation. ??Careful clinical correlation is recommended, particularly when comparing to results calculated using previous equations. The CKD-EPI equation is less accurate in patients with extremes of muscle mass, extra-renal metabolism of creatinine, excessive creatinine ingestion, or following therapy that affects renal tubular secretion. Calcium9.48.5 - 9.9 mg/dL04/23/2025 3:23 PM [facility] Total Protein7.36.3 - 8.0 g/dL04/23/2025 3:23 PM [facility] LABAlbumin4.43.5 - 4.6 g/dL04/23/2025 3:23 PM [facility] LABTotal Bilirubin0.60.2 - 0.7 mg/dL04/23/2025 3:23 PM [facility] LABAlkaline Dqmqkbnohqn7982 - 130 U/L1 3:23 PM [facility] CAVBYP010 - 33 U/L1 3:23 PM [facility] XYPPXB547 - 35 U/L1 3:23 PM [facility] LABGlobulin2.92.3 - 3.5 g/dL04/23/2025 3:23 PM [facility] LABSpecimen (Source)Anatomical Location / LateralityCollection Method / Volume Collection TimeReceived TimeBloodBLOOD SPECIMEN / Dygesvb9204/23/2025 11:40 AM EDT 04/23/2025 2:32 PM EDT Narrative Authorizing ProviderResult TypeResult StatusStephen Nolasco DOCHEMISTRY ORDERABLESFinal ResultPerforming OrganizationAddressCity/State/ZIP CodePhone Number [facility] [address] [place] [address], [facility] [phone] from Last 3 Months Insurance Care Teams Team MemberRelationshipSpecialtyStart DateEnd Date Stephen Nolasco DO [address] [place] [address] PCP - GeneralFamily Yfgqnzsw25/10/23
--- OUTSIDE RECORDS SUMMARY | 2025-05-08 14:27 | XMS_ITS | Encounter Summary ---
Author Organization [facility] Address [address], [address] [place] [address] Care Team Providers Care Motor Equipment Captain Name Role Phone Stephen Nolasco DO Primary Care Provider [phone] Encounter Details DateTypeDepartmentCare Team (Latest Contact Info)Qvlsmueiano82/21/2025Orders Only [facility] [address] [place], [place] [phone] Stephen Nolasco DO [address] [place], [place] [phone] Chronic fatigue; Iron deficiency; B12 deficiency Social History Tobacco UseTypesPacks/DayYears UsedDateSmoking Tobacco: Some OxtkEocxsvwtcn640.8 Started: 07/04/2007Smokeless Tobacco: CurrentAlcohol UseStandard Drinks/Week CommentsYes2 (1 standard drink = 0.6 oz pure alcohol)sociallyOverall Financial Resource Strain (CARDIA)AnswerDate RecordedHow hard is it for you to pay for the very basics like food, housing, medical care, and heating?Not hard at all 04/12/2023HQ-2AnswerDate RecordedPHQ-9 Total Woffh957PRAPARE - TransportationAnswerDate RecordedLack of Transportation (Medical)Not on file 04/12/2023In the past 12 months, has lack of transportation kept you from meetings, work, or from getting things needed for daily living?No04/12/2023 Housing Stability Vital SignAnswerDate RecordedUnable to Pay for Housing in the Last YearNot on file04/12/2023Number of Places Lived in the Last YearNot on file 04/12/2023In the last 12 months, was there a [...] were you homeless or living in a intermediate (including now)?No04/23/2025UDIT-CAnswerDate RecordedQ1: How often do you [...] Domain Source: IP Abuse ScreeningAnswerDate Recorded Physical vhhaxJnsjdr14/29/2025Verbal axuzeFljcgb69/29/2025Emotional abuseDenies 08/01/2024Financial xuipjWgwrjv14/29/2025Sexual mxjbhEbgssl01/29/2025 CommentsNoSex and Gender InformationValueDate RecordedSex Assigned at Gwaovo8604/16/2025 9:11 AM EDTLegal VtvKvfrqq04/06/2019 9:47 AM EDTGender Identity Xfgast1204/16/2025 9:11 AM EDTSexual OytaanijuksHweclovh20/14/2025 9:11 AM EDT documented as of this encounter Functional Status * AUDIT-C ScoreAnswerDate of UfhawqaqaoSrjjiv474/21/2025 11:12 AM EDT Venita Yang MA * QuestionAnswerDate of AssessmentAuthorQ1: How often do you have a drink containing alcohol?Never04/23/2025 11:12 AM Veinta Woods MAQ2: How many drinks containing alcohol do you have on a typical day when you are drinking?Patient does not drink04/23/2025 11:12 AM Venita Woods MA Q3: How often do you have six or more drinks on one occasion?Never04/23/2025 11:12 AM Venita Woods MA documented as of this encounter Plan of Treatment DateTypeDepartmentCare Team (Latest Contact Info)Syfggkjqhhm88/22/2026 10:30 AM EDTOffice Visit [facility] [address], [place] [phone] Stephen Nolasco DO [address] [place] [address] Annual physicaldocumented as of this encounter Procedures Procedure NamePriorityDate/TimeAssociated DiagnosisCommentsVITAMIN B12 & FOLATE Zmfclty8204/23/2025 11:40 AM EDT Chronic fatigue B12 deficiency TSH REFLEX TO ME8Khqcxgj49/21/2025 11:40 AM EDT Chronic fatigue CBC WITH AUTO EVLZEGYYCTFJAlcgzwi00/21/2025 11:40 AM EDT Chronic fatigue IRON AND RBLTTpagtuh98/21/2025 11:40 AM EDT Chronic fatigue Iron deficiency C-REACTIVE YCREPYCNuhjqhq86/21/2025 11:40 AM EDT Chronic fatigue VYDOWDTZEfyiybs41/21/2025 11:40 AM EDT Iron deficiency COMPREHENSIVE METABOLIC PPWZZUvvucrc55/21/2025 11:40 AM EDT Chronic fatigue documented in this encounter Results * Ferritin (04/23/2025 11:40 AM EDT)ComponentValueRef RangeTest MethodAnalysis TimePerformed AtPathologist FwktvavuzOoqzzfqc4675 - 150 ng/mL04/24/2025 1:33 AM EDBETHESDA NOR[facility] LABORATORIESComment: FERRITIN Reference Ranges: Adult Males ?? 20 - 60 years: ?30 - 400 ng/mL Adult females 17 - 60 years: ?13 - 150 ng/mL Adults greater than 60 years: ?? no established reference range Pediatrics: ??no established reference range Performed at [facility], [address] [place] [address] . Specimen (Source)Anatomical Location / LateralityCollection Method / Volume Collection TimeReceived TimeBloodBLOOD SPECIMEN / Msovzjh0704/23/2025 11:40 AM EDT 04/23/2025 2:29 PM EDT Narrative Authorizing ProviderResult TypeResult StatusGregory S Gaurav DOCHEMISTRY ORDERABLESFinal ResultPerforming OrganizationAddressCity/State/ZIP CodePhone Number [facility] [address] [facility] [place], [place] [address] [phone] [phone] * TSH reflex to FT4 (04/23/2025 11:40 AM EDT)ComponentValueRef RangeTest Method Analysis TimePerformed AtPathologist SignatureTSH1.9000.440 - 3.860 uIU/mL 04/23/2025 3:23 PM [facility] LABComment: Free T4 will automatically reflex ??with a TSH result of <0.270 or >4.200 Specimen (Source)Anatomical Location / LateralityCollection Method / Volume Collection TimeReceived TimeBloodBLOOD SPECIMEN / Cupyyxf1504/23/2025 11:40 AM EDT 04/23/2025 2:32 PM EDT Narrative Authorizing ProviderResult TypeResult StatusColorado River Medical Center DOCHEMISTRY ORDERABLESFinal ResultPerforming OrganizationAddressCity/State/ZIP CodePhone Number [facility] [address] [address], [facility] [phone] * (ABNORMAL) Vitamin B12 & Folate (04/23/2025 11:40 AM EDT)ComponentValueRef RangeTest MethodAnalysis TimePerformed AtPathologist SignatureVitamin B-289348 (H)232 - 1245 pg/mL04/24/2025 2:11 AM EDTMERCY LABORATORIESComment: Performed at [facility] [place] [address] . Folate>40.0(H)4.8 - 24.2 ng/mL04/24/2025 2:11 AM EDTMERCY LABORATORIESComment: Performed at [facility] [place] [address] . Specimen (Source)Anatomical Location / LateralityCollection Method / Volume Collection TimeReceived TimeBloodBLOOD SPECIMEN / Bmlvkvc4204/23/2025 11:40 AM EDT 04/23/2025 2:29 PM EDT Narrative Authorizing ProviderResult TypeResult StatusColorado River Medical Center DOCHEMISTRY ORDERABLESFinal ResultPerforming OrganizationAddressCity/State/ZIP CodePhone Number [facility] [address] [address], [facility] [phone] [place] [id number], [facility] [phone] * Iron and TIBC (04/23/2025 11:40 AM EDT)ComponentValueRef RangeTest Method Analysis TimePerformed AtPathologist JnxpnergdQnih4805 - 145 ug/dL04/24/2025 1:33 AM EDTMERCY NKECWOIKYSVZESQA153434 - 450 ug/dL04/24/2025 1:33 AM EDTMERCY LABORATORIESIron % Juhjcxestu7593 - 55 %04/24/2025 1:33 AM EDTMERCY TDUTJZVLDIEHFSCL905716 - 347 ug/dL04/24/2025 1:33 AM EDTMPRESCOTT [facility]ERY [facility] Comment: Performed at [facility], [address] [place] [address] . Specimen (Source)Anatomical Location / LateralityCollection Method / Volume Collection TimeReceived TimeBloodBLOOD SPECIMEN / Djrgjhd0804/23/2025 11:40 AM EDT 04/23/2025 2:29 PM EDT Narrative Authorizing ProviderResult TypeResult [facility] DOCHEMISTRY ORDERABLESFinal ResultPerforming OrganizationAddressCity/State/ZIP CodePhone Number [facility] [address] [place] [address], [facility] [phone] [address], [facility] [phone] * C-Reactive Protein (04/23/2025 11:40 AM EDT)ComponentValueRef RangeTest Method Analysis TimePerformed AtPathologist SignatureCRP<3.00.0 - 5.0 mg/L1 3:19 PM [facility] LABSpecimen (Source)Anatomical Location / LateralityCollection Method / VolumeCollection TimeReceived Time BloodBLOOD SPECIMEN / Owlbzwm0904/23/2025 11:40 AM EDT1 2:33 PM EDT Narrative Authorizing ProviderResult TypeResult [facility] DOCHEMISTRY ORDERABLESFinal ResultPerforming OrganizationAddressCity/State/ZIP CodePhone Number [facility] [address] [place] [address], [facility] [phone] * (ABNORMAL) Comprehensive Metabolic Panel (04/23/2025 11:40 AM EDT)Component ValueRef RangeTest MethodAnalysis TimePerformed AtPathologist SignatureSodium 612666 - 144 mEq/L1 3:23 PM [facility] Potassium4.03.4 - 4.9 mEq/L1 3:23 PM [facility] PDWWbmgfhhg59838 - 107 mEq/L1 3:23 PM [facility] HSNRL25587 - 31 mEq/L1 3:23 PM [facility] Anion Jhi430 - 15 mEq/L1 3:23 PM [facility] Kfagrpa3518 - 99 mg/dL04/23/2025 3:23 PM [facility] GFZ111 - 20 mg/dL04/23/2025 3:23 PM [facility] Creatinine0.97(H)0.50 - 0.90 mg/dL04/23/2025 3:23 PM [facility] LABEst, Glom Filt Rate79.7>6004/23/2025 3:23 PM [facility] LABComment: Pediatric calculator link https://www.kidney.org/professionals/kdoqi/gfr_calculatorped Effective Apr [...] secretion. Calcium9.48.5 - 9.9 mg/dL04/23/2025 3:23 PM [facility] Total Protein7.36.3 - 8.0 g/dL04/23/2025 3:23 PM [facility] LABAlbumin4.43.5 - 4.6 g/dL04/23/2025 3:23 PM [facility] LABTotal Bilirubin0.60.2 - 0.7 mg/dL04/23/2025 3:23 PM [facility] LABAlkaline Noowmmxihti5353 - 130 U/L1 3:23 PM [facility] FVXMTH741 - 33 U/L1 3:23 PM [facility] OGPANG615 - 35 U/L1 3:23 PM [facility] LABGlobulin2.92.3 - 3.5 g/dL04/23/2025 3:23 PM [facility] LABSpecimen (Source)Anatomical Location / LateralityCollection Method / Volume Collection TimeReceived TimeBloodBLOOD SPECIMEN / Vuafdfn4604/23/2025 11:40 AM EDT 04/23/2025 2:32 PM EDT Narrative Authorizing ProviderResult TypeResult StatusColorado River Medical Center DOCHEMISTRY ORDERABLESFinal ResultPerforming OrganizationAddressCity/State/ZIP CodePhone Number [facility] [address] [place] [address], [facility] [phone] * (ABNORMAL) CBC with Auto Differential (04/23/2025 11:40 AM EDT)ComponentValue Ref RangeTest MethodAnalysis TimePerformed AtPathologist SignatureWBC6.54.8 - 10.8 K/uL04/23/2025 2:43 PM [facility] LABRBC4.03(L)4.20 - 5.40 M/uL04/23/2025 2:43 PM [facility] LABHemoglobin 14.112.0 - 16.0 g/dL04/23/2025 2:43 PM [facility] Amoitxhrxg89.137.0 - 47.0 %04/23/2025 2:43 PM [facility] DBUEAZ278.0(H)79.4 - 94.8 fL04/23/2025 2:43 PM [facility] QNUIYB32.0(H)27.0 - 31.3 pg04/23/2025 2:43 PM [facility] PZNJNNE77.333.0 - 37.0 %04/23/2025 2:43 PM [facility] RDW11.511.5 - 14.5 %04/23/2025 2:43 PM [facility] Twofaguec081847 - 400 K/uL04/23/2025 2:43 PM [facility] LABNeutrophils %52.4%04/23/2025 2:43 PM [facility] Lymphocytes %39.0%04/23/2025 2:43 PM [facility] Monocytes %6.6%04/23/2025 2:43 PM [facility] Eosinophils %1.2%04/23/2025 2:43 PM [facility] Basophils %0.5%04/23/2025 2:43 PM [facility] Neutrophils Absolute3.41.4 - 6.5 K/uL04/23/2025 2:43 PM [facility] LABLymphocytes Absolute2.51.0 - 4.8 K/uL04/23/2025 2:43 PM [facility] LABMonocytes Absolute0.40.2 - 0.8 K/uL04/23/2025 2:43 PM [facility] LABEosinophils Absolute0.10.0 - 0.7 K/uL 04/23/2025 2:43 PM [facility] LABBasophils Absolute0.00.0 - 0.2 K/uL04/23/2025 2:43 PM [facility] LABSpecimen (Source)Anatomical Location / LateralityCollection Method / VolumeCollection TimeReceived TimeBloodBLOOD SPECIMEN / Xaiehgv6704/23/2025 11:40 AM EDT 04/23/2025 2:31 PM EDT Narrative Authorizing ProviderResult TypeResult StatusStephen Nolasco DOHEMATOLOGY ORDERABLESFinal ResultPerforming OrganizationAddressCity/State/ZIP CodePhone Number [facility] [address] [place] [address], [facility] [phone] documented in this encounter Visit Diagnoses Diagnosis Chronic fatigue Other malaise and fatigue Iron deficiency Other disorders of iron metabolism B12 deficiency Other B-complex deficiencies documented in this encounter Care Teams Team MemberRelationshipSpecialtyStart DateEnd Date Stephen Nolasco DO [address] [place], [place] [phone] PCP - GeneralFamily Cuonowdw58/10/23documented as of this encounter
--- OUTSIDE RECORDS SUMMARY | 2025-05-08 14:32 | XMS_ITS | CCD ---
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 01:00-0400Body Coymljtjdua10.1 [degF]Physician BpOsnkDuqnzb95-29-8237 21:BMI (Body Mass Index)19.77 kg/o1Exlezzfdd VwBtwfAkamdr00-92-2719 21:02040Body yggjiu23.97 kg Physician DgLxmaYkavck19-18-7350 21:9322Fwjllv179.7 cmPhysician NoOhioHealth Encounters Encounter DateEncounter TypeCare ProviderFacilityStart: 05-08-2025 End: 67-14-0659Cnndut flowsheetCorey Everett DO Work Phone: [facility] [place] OBGYNStart: 05-08-2025 End: 77-52-4448Vcyzbd flowsheetCorey Everett DO Work Phone: [facility] [place] OBGYNStart: 35-86-7489rpztdkyepu Facility:[facility]Start: 08-01-2024 End: 22-82-0045Hjzgiblws department patient visitMarc Kyaw Gray DO Work Phone: [facility] Emergency DepartmentComment on above: Laceration of left thumb without foreign body without damage to nail, initial encounter (Primary Dx)Start: 06-12-2024 End: 83-92-6230Cvmlxutds department patient visitPAKAMILA KANGOhioHealth Doctors Hospitaltart: 04-23-2024 End: 01-75-2504Awojdh flowsheetCorey Everett DO Work Phone: [facility] BCP OBStart: 04-23-2024 End: 82-43-4559Iunyog flowsheetCorey Everett DO Work Phone: [facility] BCP OBStart: 04-23-2024 End: 34-38-9370Ffptqlouv Result EncounterCorey Everett DO Work Phone: [facility] External Department UnsolicitedStart: 04-23-2024 End: 17-28-3394Rvrsjzn encounter procedureCorey Everett DO Work Phone: [facility] HealthcareStart: 04-23-2024 End: 80-98-6136Oyeykuxv preventive med est patient 18-39 yrsCorey Everett DO Work Phone: [facility] BCP OBComment on above:Well woman exam with routine gynecological examStart: 04-23-2024 End: 41-70-1932bwnfglprwrHIUDY FAZIONot AvailableStart: 22-03-0640Zciznjrif encounterBlanca Cason APRN.CNP Work Phone: NeurologyComment on above:Insurance Authorization (Eletriptan)Start: 68-24-8016tbhqjdylvvHsmfsfyynCuca Cason APRN.CNP Work Phone: NeurologyComment on above:MedicationStart: 03-08-2023 End: 02-96-1705Gznbbos encounter procedureBlanca Cason APRN.CNP Work Phone: NeurologyComment on above:Chronic daily headache (Primary Dx); Intractable chronic post-traumatic headache; Migraine without aura and without status migrainosus, not intractableRefill RequestStart: 03-08-2023 End: 56-58-1616nkfiyudsahIEONWPVMY NAJDOVSKIFacility:[facility] Start: 01-10-2023 End: 02-22-6511Ypcrepkxj department patient visitAstrit [facility] Start: 71-86-4797VelwrvOnrmjksn Aly MD Work Phone: NeurologyComment on above:Refill RequestPropranolol Start: 10-29-2022 End: 84-22-0232Mrvquzwci encounterGregoria Parker DO Work Phone: NeurologyComment on above:LMTCBBilateral occipital neuralgia (Primary Dx); Intractable chronic post-traumatic headache; Intractable chronic migraine without aura and without status migrainosus; EDGAR (generalized anxiety disorder)Start: 10-29-2022 End: 06-39-3780irewynjsloDJZGFZK SINGHFacility:[facility] Hospitaltart: 10-29-2022 End: 46-58-2251Ltachtvcdnul consultation with Suraj Parker DO Work Phone: [facility] [place] FHCStart: 09-29-2022 End: 07-57-3862aanvwitxqyUFHTICMD ALYFacility:[facility] Hospitaltart: 09-29-2022 End: 76-05-4309Dggvvhc encounter procedureEsdras Epperson MD Work Phone: NeurologyComment on above:Periodic headache syndrome, 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)Start: 08-20-2022 End: 00-03-3173rwsbsppzmgDKOFYHQ SINGHFacility:[facility] Hospitaltart: 08-20-2022 End: 64-00-6121Jtvyrrm encounter procedureGregoria Parker DO Work Phone: NeurologyComment on above:Bilateral occipital neuralgia (Primary Dx); CervicalgiaStart: 08-05-2022 End: 37-98-6219Phckfvtm Taya Canales PhD Work Phone: NeurologyComment on above:Functional neurological symptom disorder (conversion disorder), with abnormal movement (Primary Dx); EDGAR (generalized anxiety disorder); Posttraumatic stress disorderStart: 07-29-2022 End: 17-67-5019jqalsigvpiOJUYNOL SINGHFacility:[facility] Hospitaltart: 07-27-2022 End: 54-77-5986Gdjhprzmoscar Canales PhD Work Phone: NeurologyComment on above:Functional neurological symptom disorder (conversion disorder), with abnormal movement (Primary Dx); EDGAR (generalized anxiety disorder); Posttraumatic stress disorderStart: 07-13-2022 End: 04-35-1994Wjjhvfdt EshaDeepthi Canales PhD Work Phone: NeurologyComment on above:Functional neurological symptom disorder (conversion disorder), with abnormal movement (Primary Dx); EDGAR (generalized anxiety disorder); Posttraumatic stress disorderStart: 07-12-2022 End: 76-24-2907iqshzipnxdYNFSQA R NAIRFacility:[facility] Hospitaltart: 07-12-2022 End: 70-20-5818bzsfmkprekKiapwe R Nair MD Work Phone: NeurologyComment on above:Psychogenic nonepileptic seizure (Primary Dx); Syncope and collapseStart: 07-12-2022 End: 45-66-8753Hvetngpgnuad consultation with Joycelyn Barone MD Work Phone: [facility] MAINStart: 07-01-2022 End: 97-60-0705xuhhzxwkkoCRIOIWAS ALYFacility:[facility] Hospitaltart: 07-01-2022 End: 45-34-7579Txkrdkt encounter Xavier Epperson MD Work Phone: NeurologyComment on above:Intractable post-traumatic headache, unspecified chronicity patternStart: 06-15-2022 End: 75-44-8873Zpkfytogjkkp consultation with Chivo Canales PhD Work Phone: [facility] MAINStart: 06-15-2022 End: 87-42-5182aystnwhkwaZGKQRHAvita [facility] System [facility] SHSComment on above: Functional neurological symptom disorder (conversion disorder), with abnormal movement (Primary Dx); EDGAR (generalized anxiety disorder); Posttraumatic stress disorderStart: 06-15-2022 End: 50-38-3600Vussxraah department patient visitTHERAvita [facility] System [facility] SHSStart: 75-56-6891IB Patient MsgCcf ProviderNeurologyComment on above: Consult OrderStart: 05-18-2022 End: 78-79-6386Pkefdvls HealthDeepthi Canales PhD Work Phone: NeurologyComment on above:Functional neurological symptom disorder (conversion disorder), with abnormal movement (Primary Dx) Start: 05-04-2022 End: 00-43-7094vbgukibozaSQO M MERNERFacility:[facility] Hospitaltart: 05-04-2022 End: 00-00-3284hfssiinovjQiiGeorgina Deleon APRN.LINING BRUSHER Work Phone: NeurologyComment on above:Intractable paroxysmal hemicrania, unspecified chronicity pattern (Primary Dx); Psychogenic nonepileptic seizureStart: 05-04-2022 End: 14-09-6438Arefzycgsmap consultation with Zhen Deleon APRN.LINING BRUSHER Work Phone: [facility] MAINStart: 04-26-2022 End: 29-60-8965Dukbgeib Taya Canales PhD Work Phone: NeurologyComment on above:Functional neurological symptom disorder (conversion disorder), with abnormal movement (Primary Dx); EDGAR (generalized anxiety disorder)Start: 04-19-2022 End: 09-86-4846Tmpsfmyf Taya Canales PhD Work Phone: NeurologyComment on above:Functional neurological symptom disorder (conversion disorder), with abnormal movement (Primary Dx); EDGAR (generalized anxiety disorder); Posttraumatic stress disorderStart: 04-12-2022 End: 12-40-7270Yswonctv Taya Canales PhD Work Phone: NeurologyComment on above:Functional neurological symptom disorder (conversion disorder), with abnormal movement (Primary Dx) Start: 04-08-2022 End: 89-81-6274Qsdiphxc Taya Canales PhD Work Phone: NeurologyComment on above:EDGAR (generalized anxiety disorder) (Primary Dx); Functional neurological symptom disorder (conversion disorder), with abnormal movement; Posttraumatic stress disorderStart: 24-54-4639Maszixhqw encounterTippah County Hospitalayaka Edwards DO Work Phone: NOCComment on above:Follow Up Phone Call (All Clear) Start: 03-29-2022 End: 54-36-9107otcavmqvwcDMLKIZQ KOTAGALFacility:[facility] Hospitaltart: 03-28-2022 End: 41-70-8077Xunmgeddlm and management of inpatientANDREAS ALEXOPOULOS V Facility:[facility] Hospitaltart: 03-09-2022 End: 52-19-3332sqpyqobahbHD KEN FAZIOFacility:H5Xeqez: 16-05-6898Kybtr abstractingMalcolm Garrett MD Work Phone: NeurologyComment on above:Seizures (EMU orders)Start: 02-24-2022 End: 36-76-1203Mfptetu encounter Minh Garrett MD Work Phone: NeurologyComment on above:Generalized convulsive epilepsy (HCC) (Primary Dx)Start: 70-77-0864mzlzdfzsmpUujnm P Silberman APRN.LINING BRUSHER Work Phone: NeurologyComment on above:ResultsStart: 95-37-1047Y- mail encounter from caregiverChristiane Tate APRN.CNP Work Phone: [facility] MAINStart: 02-05-2022 End: 45-73-6727Tztynahymx hospital visit by Cesar Gee (1.5t) Work Phone: RadiologyComment on above:Post traumatic seizure (HCC) [R56.1]Start: 12-29-2021 End: 90-76-8400Dhkxdwr encounter procedureChristiane Tate APRN.LINING BRUSHER Work Phone: NeurologyComment on above:Transient loss of consciousness (Primary Dx); Post traumatic seizure (HCC); Transient memory loss; Convulsions, unspecified convulsion type (HCC)Start: 12-28-2021 End: 36-40-8132Fcktlba encounter Nena EDWARDS [phone]-ZwmooUniversity [facility]als [facility] [place] Start: 12-22-2021 End: 58-12-4589Rlgjeicwf department patient visitClarence Butcher [facility] Start: 12-21-2021 End: 24-18-5300Hsk Drop offGregory S JERRY [facility] Start: 12-21-2021 End: 17-12-5111Omitpnu encounter procedureGregory S JERRY [phone]-YpuqlUniversity Hospitals [facility] [place] Start: 06-22-2021 End: 73-95-6657touffyxjnwFW KEN FAZIOFacility:S7Riorw: 09-46-5257Tamikqucg for preprocedural laboratory examinationDR KEN [facility] HospitalStart: 05-05-2021 End: 41-43-8370bwjgsxyeviPL KEN FAZIOFacility:U0Ovmry: 05-05-2021 End: 44-15-2073Vilwbrdsl for preprocedural laboratory examinationDR KEN EVERETT Facility:D5Dnpou: 76-70-6765Xksjojoyx for other preprocedural examinationDR EKN [facility] Hospitaltart: 04-28-2021 End: 36-79-3327lcjsbttnwzER KEN FAZIOFacility:E3Hnrku: 04-28-2021 End: 30-81-5998Vyfrtofgs for other preprocedural examinationDR KEN EVERETT Facility:U3Minjj: 04-20-2019 End: 99-85-5283Ksjpyrqvku hospital visit by Taty Ford Physical TherapyComment on above:ArrivedStart: 04-18-2019 End: 90-58-6726Dfirmnbvde hospital visit by Taty Ford Physical TherapyComment on above:ArrivedStart: 04-16-2019 End: 24-47-6912Tmdasudtjv hospital visit by Stephanie Jose Physical TherapyComment on above:ArrivedStart: 04-13-2019 End: 13-33-3968Xsgcpshjua hospital visit by physicianRohan Ford Physical TherapyComment on above:ArrivedStart: 04-11-2019 End: 90-42-2513Hchcuqlijs hospital visit by physicianRohan Ford Physical TherapyStart: 04-09-2019 End: 13-38-4362Csdwdbswdn hospital visit by physicianRohan Ford Physical TherapyComment on above:ArrivedStart: 04-06-2019 End: 47-94-6793Kbivpvjnbv hospital visit by Stephanie Jose Physical TherapyComment on above:ArrivedStart: 04-04-2019 End: 75-52-2726Szmlzwklce hospital visit by Taty Ford Physical TherapyComment on above:ArrivedStart: 03-26-2019 End: 78-74-9659Pkkohqsfsg hospital visit by Stephanie Jose Physical TherapyComment on above:ArrivedStart: 03-22-2019 End: 44-21-2420Gigprhhblf hospital visit by Taty Ford Physical TherapyComment on above:ArrivedStart: 03-21-2019 End: 94-36-5933Hydtsfysrd hospital visit by Taty Ford Physical TherapyComment on above:ArrivedStart: 03-19-2019 End: 44-99-0910Zjkmffhgfd hospital visit by Stephanie Jose Physical TherapyComment on above:ArrivedStart: 12-23-2018 End: 56-35-2721Txgeumdki department patient visitPHYSICIAN [facility] Start: 12-23-2018 End: 14-02-4375Lviinuwxr department patient visitPhysician [facility] Emergency DepartmentComment on above:Neck sprain, initial encounter (Primary Dx) Procedures DateProcedureProcedure DetailPerforming ClinicianStart: 73-48-8156FTH,APTIMA HPV,AGE GDLNCorey Everett DO Work Phone: Start: 57-12-1676Brtc cerv/vag auto thin layer prep mnl screenCorey Everett DO Work Phone: Start: 08-55-4574Ywp brain brain stem w/o w/contrast Cinda Tate APRN.LINING BRUSHER Work Phone: Start: 99-30-8926DK of chestMartriciaa Gavi Rachedi Work Phone: Start: 02-79-7076YO cervical spine without contrast Vera Gavi Rachedi Work Phone: Start: 18-87-0153MB of head without contrastMartriciaa Gavi Rachedi Work Phone: Start: 84-58-4103KHBUCCAO TOPLiaa Gavi Rachedi Work Phone: Start: 42-26-0528BIPSU BLUE TOPLiaa Gavi Rachedi Work Phone: Start: 66-90-5224EZRFJ GREEN TOPLiaa Gavi Rachedi Work Phone: Start: 70-48-3362YSCA GREEN TOPLiaa Gavi Rachedi Work Phone: Start: 22-39-2781THTODRL DRAWMartriciaa Gavi Rachedi Work Phone: Start: 12-06-2016H/O: tubal ligationGregory JERRY Arthroscopy of shoulderGregory JERRY laparscopyGregory JERRY Partial hysterectomyGregory JERRY tear duct surgeryGregory JERRY Tonsillectomy and adenoidectomyGregory JERRY Plan of Treatment DateCare ActivityDetailAuthorStart: 71-91-9939FDmR/Tdap/Td vaccine (8 - Td or Tdap)DTaP/Tdap/Td vaccine (8 - Td or Tdap)[facility] HealthStart: 05-08-2025 End: 38-60-4436Wtdvmwo encounter dgxrklbeh43/05/2025 2:00 PM EST Office Visit [facility] [address] [place] [id number] Ken Floyd, [address] [place] [address] ArrivedMIKE Rollins OBGYNComment on above:ArrivedStart: 05-02-2025 End: 48-52-4588Kgjcbdz encounter vjfreemme33/30/2025 10:00 AM EDT Office Visit [facility] [address] [place] [phone] Ken Floyd, [address] [place] [address] [facility] BCP OBStart: 04-15-2025 End: 81-16-8801Uaxefiz encounter rgqifgbsm87/13/2025 11:30 AM EDT Office Visit [facility] [address] [place] [address] Carmencita Edwards DO [address] [place] [address] [facility] Specialty CareComment on above:AnnualStart: 33-15-8514Iwhlawxuos Screen Depression ScreenBon Secours [facility] SouthStart: 10-09-2024 End: 79-10-8403Sflgfzx encounter mwsxtuiqi95/08/2025 8:30 AM EDT Office Visit [facility] [address] [place] [address] Ken Floyd, [address] [place] [address] [facility] OBStart: 04-23-2024 End: 15-96-4602Dfogedz encounter fcuqpiwlc98/21/2024 10:20 AM EDT Office Visit [facility] [address] [place] [phone] Ken Floyd, DO [address] [address] ArrivedNOMS [facility] OBComment on above:ArrivedStart: 32-34-4671KHUPL-19 Vaccine ( season)COVID-19 Vaccine ( season)[facility] TownshipStart: 77-00-5480Kqrxvjwem vaccinationFlu vaccine (#1)[facility] HealthStart: 96-09-6647Jhhkgphye for malignant neoplasm of cervixCentra HealthStart: 83-35-5444Yxllhwuda vaccinationWood County Hospitaltart: 96-64-4408DNNQLXIFKY ASSESSMENTDEPRESSION ASSESSMENTWood County Hospitaltart: 96-29-7838Vyfikufbh vaccinationWood County Hospitaltart: 02-26-2022 End: 93-59-2531WRHT-CoV-2 (COVID-19) RNA [Presence] in Respiratory specimen by LAMIN with probe detectionINTERMEDIATE RAPID COVID Microbiology Routine Generalized convulsive epilepsy (HCC) Expected: 02/26/2022, Expires: 06/28/2022 [facility] Work Phone: Comment on above:Expected: 02/26/2022, Expires: 06/28/2022tart: 15-80-7141YPPGMUYQCM ASSESSMENTDEPRESSION ASSESSMENTWood County Hospitaltart: 04-20-2019 End: 96-78-4511Tllxlgnectr63/18/2019 Appointment Physical Therapy Rohan Hicks PTAMWHZ Physical TherapyStart: 04-18-2019 End: 50-49-1677Mazqjhdjrlh41/16/2019 Appointment Physical Therapy Rohan Hicks PTAMWHZ Physical TherapyStart: 04-16-2019 End: 80-58-5900Awkenxthevq44/14/2019 Appointment Physical Therapy Kathy Salinas, PTMWHZ Physical TherapyStart: 04-13-2019 End: 87-40-5307GorpjhfztumOQSZ Physical TherapyStart: 04-11-2019 End: 63-32-9019Pnxxwbmhryu70/09/2019 Appointment Physical Therapy Rohan Hicks PTAMWHZ Physical TherapyStart: 04-09-2019 End: 38-40-4248Igkcqbtiklp75/07/2019 Appointment Physical Therapy Rohan Hicks PTAMWHZ Physical TherapyStart: 04-06-2019 End: 03-39-3115Kmiklqvldrw95/04/2019 Appointment Physical Therapy Kathy Salinas PTMHIREN Physical TherapyStart: 04-04-2019 End: 96-42-3633Kmrrmznlchy51/02/2019 Appointment Physical Therapy Rohan Hicks PTAMWHZ Physical TherapyStart: 04-02-2019 End: 38-60-9055Awclyvzglho46/30/2019 Appointment Physical Therapy Rohan Hicks PTAMWHZ Physical TherapyStart: 03-29-2019 End: 12-03-7725Qvbmdfwezea62/26/2019 Appointment Physical Therapy Rohan Hicks PTAMWHZ Physical TherapyStart: 03-27-2019 End: 12-47-8610Nmjjnaesrjy72/24/2019 Appointment Physical Therapy Rohan Hicks PTAMWHZ Physical TherapyStart: 03-26-2019 End: 54-33-7474Ytenvwbeqee33/23/2019 Appointment Physical Therapy Kathy Salinas PTMZ Physical TherapyStart: 03-22-2019 End: 38-73-0069Zgrkfptvopi17/19/2019 Appointment Physical Therapy Rohan Hicks PTAMWHZ Physical TherapyStart: 03-21-2019 End: 99-81-3835Qchbavblkba15/18/2019 Appointment Physical Therapy Rohan Hicks PTAMWHZ Physical TherapyStart: 38-90-8093Ujdnoynkq vaccinationFlu vaccine (#1) [facility] [place]Start: 53-31-1827Jkipoxwhk vaccination givenSEQUENTIAL INFLUENZA VACCINE (Season Ended)[facility] [place]onStart: 53-31-0004Eevojgje cancer screenCervical cancer screenWright-Patterson Medical Center, KYStart: 50-86-5673IFX TESTINGPAP TESTINGGorham ClinicStart: 72-11-4561Zsiuflvwb for malignant neoplasm of cervixPap smearBon Secours [facility] SouthStart: 75-90-5421KBdV/Tdap/Td vaccine (1 - Tdap)DTaP/Tdap/Td vaccine (1 - Tdap)[facility]: 64-52-0022Baxxn microalbumin profileWood County Hospitaltart: 14-56-1126IBMXLGNGM C SCREENING HEPATITIS C SCREENINGPremier Health Miami [facility] Hospital Northrt: 48-15-8339Gtdugqebb C screening Hepatitis C screenVirginia Hospital Center: 19-80-8778ARS SCREENINGHIV SCREENINGPremier Health Miami Valley Hospital Northrt: 15-99-0593TWM screenHIV screenGeorgetown Behavioral Hospital: 85-36-0339MKF screeningHIV screenVirginia Hospital Center: 77-16-7971DIO vaccine (1 - Female 3-dose series)HPV vaccine (1 - Female 3-dose series)[facility]: 11-57-5521Ubtypgxnbsz for human papillomavirus HPV VACCINES (1 - Female 3-dose series)[facility]: 99-47-9645Nfoujivox Vaccine (1 of 2 - 13+ 2-dose series)Varicella Vaccine (1 of 2 - 13+ 2-dose series)[facility]: 11-00-2163Eusxw depression screening assessmentDEPRESSION SCREENINGWood County Hospitaltart: 60-57-0521QIDZJLHGZTKT (1 - PCV)PNEUMOCOCCAL (1 - PCV)[facility]: 84-58-6993Tprzifuflyri vaccinationPneumococcal Vaccine (1 - PCV)[facility]: 42-92-8439MKWJG- 19 VACCINE (#1)COVID-19 VACCINE (#1)[facility] Hospital[facility]art: 73-32-4046Coutaql and physical examination, annual for [facility] VisitTnioC[facility] Clinic [facility] Start: 03-79-5951LWDUY-19 VACCINE (#1)COVID-19 VACCINE (#1)[facility] Start: 18-87-8206RIZDLDHXC B (1 of 3 - 3-dose series)HEPATITIS B (1 of 3 - 3- dose series)[facility] Hospital[facility]: 67-17-8747Gadvymtkd B Vaccine (1 of 3 - 3- dose series)Hepatitis B Vaccine (1 of 3 - 3-dose series)[facility] Hospitaltart: 10-87-6115Febbwcrun for malignant neoplasm of cervixPAP SMEAROhioHealthStart: 07-96-4965Inkrwqt vaccinationTETANUS EVERY 10 YROhioHealthCardiovascular function eval w/tilt table w/mntrTILT TABLE EVALUATION Cardiology Routine Syncope and collapse 1 Occurrences starting 07/12/2022[facility] Work Phone: Comment on above:1 Occurrences starting 07/12/2022 Cytology Cervical or vaginal smear or scraping studyPap Smear Pathology and Cytology Routine Well woman exam with routine gynecological exam Ordered: [facility] [employer] Work Phone: comment on above:Ordered: 04/23/2024 End: 66-20-4001FVPZ EEG LONGEPIL EEG LONG NEUROLOGY Routine Transient loss of consciousness 1 Occurrences starting 12/29/2021 until 12/29/2022[facility] Work Phone: Comment on above:1 Occurrences starting 12/29/2021 until 12/29/2022 End: 70-87-6194DXKJ EEG W PROCEDUREEPIL EEG W PROCEDURE NEUROLOGY Routine Syncope and collapse 1 Occurrences starting 07/12/2022 until07/12/2023[facility] Work Phone: Comment on above:1 Occurrences starting 07/12/2022 until 07/12/2023EPIL VEEG ADMIT TO EMU/PMUEPIL VEEG ADMIT TO EMU/PMU NEUROLOGY Routine Generalized convulsive epilepsy (HCC) Ordered: 02/26/2022[facility] Work Phone: Comment on above:Ordered: 02/26/2022Human papilloma virus DNA [Presence] in Unspecified specimen by Probe with amplificationHPV DNA probe, amplified Microbiology Routine Well woman exam with routine gynecological exam Ordered: 04/23/2024[facility] InsurityComment on above:Ordered: 04/23/2024 End: 81-18-1952Smi brain brain stem w/o w/contrast materialMRI BRAIN WO/W IVCON Radiology Routine Post traumatic seizure (HCC) Transient memory loss Convulsion s, unspecified convulsion type (HCC) 1 Occurrences starting 12/29/2021 until 3C[facility] Work Phone: Comment on above:1 Occurrences starting 12/29/2021 until [facility]eg[facility] Immunizations Immunization DateImmunizationNotesCare OmwfombeXbfiaqfg59-47-3715xdqhxqo toxoid, reduced diphtheria toxoid, and acellular pertussis vaccine, adsorbedTippah County Hospitalory JERRY 528-1857Pubstt-XrdjyMarietta Memorial Hospital Comment on above:Result Comment: to right deltiod 50-70-1029bxcjjljlkbnpp polysaccharide (groups A, C, Y and W-135) diphtheria toxoid conjugate vaccine (MCV4P)Kieran Gray DO Work Phone: [phone])[facility] CenterXMPie [facility] Tugpuv69-96-0797kswpecr toxoid, reduced diphtheria toxoid, and acellular pertussis vaccine, adsorbedMar Anastasia DO Work Phone: [phone])[facility] Medical CenterXMPie [facility] SouthDjlqrm27-98-4191HMW, unspecified formulationKieran Anastasia DO Work Phone: [phone])[facility] CenterXMPie [facility] SouthXqvytx15-87-2101MZV, unspecified formulationJaelyn Anastasia DO Work Phone: [phone]04-27-2007HPV, unspecified formulationKieran Anastasia DO Work Phone: [phone])[facility] CenterXMPie [facility] SouthPnjzjh36-18-2112ffjiewlee virus vaccine, unspecified formulationKieran Gray DO Work Phone: [phone])[facility] CenterXMPie [facility] Zfoqwq44-42-9277wjlotob, mumps and rubella virus vaccineJaelyn Anastasia DO Work Phone: [phone])[facility] CenterXMPie [facility] Ksbcrv56-06-1585yhxmecjbhe, tetanus toxoids and acellular pertussis vaccine, unspecified formulationJaelyn Anastasia DO Work Phone: [phone])[facility] CenterXMPie [facility] Kojfod01-50-8293zqkkimovwg vaccine, inactivatedKieran Gray DO Work Phone: [phone])[facility]03-27-1995measles, mumps and rubella virus vaccineMarc Anastasia DO Work Phone: [phone])[facility] HealthLsbwjw64-31-7724xoftkqkqop, tetanus toxoids and acellular pertussis vaccine, unspecified formulationMarc Anastasia DO Work Phone: [phone])[facility] HealthMkvhig07-96-6820fwuzfmysjjt influenzae type b vaccine, conjugate unspecified formulationMarc Anastasia DO Work Phone: [phone])[facility] HealthPfwjez21-06-3046sxnccvwcom, tetanus toxoids and pertussis vaccineMarc Anastasia DO Work Phone: [phone])[facility] HealthBjpbks00-53-7909cygredigoy vaccine, inactivatedMarc Anastasia DO Work Phone: [phone])[facility] HealthSouytx40-60-8526usmhgnehh B vaccine, pediatric or pediatric/adolescent dosageMarc Anastasia DO Work Phone: [phone])[facility]ra HealthLuhnbm93-96-5992kybmzrwsvd, tetanus toxoids and pertussis vaccineMarc Anastasia DO Work Phone: [phone])[facility] HealthYzpbnd84-70-9768xbbtbejcuxm influenzae type b vaccine, conjugate unspecified formulationMarc Anastasia DO Work Phone: [phone])[facility] HealthWlqsbc10-48-2366qbjgrauzv B vaccine, pediatric or pediatric/adolescent dosageMarc Anastasia DO Work Phone: [phone])[facility] HealthQyfjdo75-90-0005amhdeanzic vaccine, inactivatedMarc Anastasia DO Work Phone: [phone])[facility] HealthOgdahh07-47-9353wpdnihwpem, tetanus toxoids and pertussis vaccineMarc Anastasia DO Work Phone: [phone])[facility] HealthTqorct87-71-2458mnjmmanwsan influenzae type b vaccine, conjugate unspecified formulationMarc Anastasia DO Work Phone: [phone])[facility] HealthQkvcnk94-86-0009vvuclfblg B vaccine, pediatric or pediatric/adolescent dosageMarc Naastasia DO Work Phone: [phone])[facility] HealthCnoull57-72-3335wxxtnorswv vaccine, inactivatedMarc Anastasia DO Work Phone: bon [facility] TownshipNEGATED: Highlighted row has not occurred!36-89-0781evhyhnhzu virus vaccine, live, attenuated, for intranasal useLa Belle JERRY [phone]-NtcsyMarietta Memorial Hospital Payers DatePayer CategoryPayerPolicy [id number] Private Health InsuranceCARESOURCE MEDICAID Member Subscriber Plan / Payer (Effective 2022-Present) Name: Jeff Shea Relation to Subscriber: Self Name: Jeff Shea Payer ID: Not on file Group ID: [id number] Type: Not on file Address: [address] [place] [id number] 18-20-2052RprqncqNHAVANAZYEOURCE CARESOURCE [place] MEDICAID xxxxxxxxxxx 2019-Present [phone] CLAIMS DEPARTMENT [address] [place], [place] [address]turygvfevbj [id number] [id number] 2019 [id number] 2010MedicaidCARESOURCECARESOURCE MEDICAID CARESOURCE MEDICAID [id number] 2009-Present [phone] [address] [place] [address] [id number]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 BE PROVIDED. PT BACK IN ROOM FROM RESTROOM. C-COLLAR REMOVED AT THIS TIME PER V.O OF DR WILLIAM PT NOW IN ROOM 9 WITH HER CHILDREN, ALSO BEING SEEN IN THE ED TONIGHT. PT CAN BE SEEN IN ROOM 7 AFTER EXITING THE BATHROOM, SIG OTHER IS BEING SEEN IN THIS ROOM. ANSWER PT CALL LIGHT, PT REQUESTS TO USE THE RESTROOM. PER DR WLILIAM, PT IS ABLE TO GET UP TO USE THE RESTROOM. PT UP WITH STEADY, EVEN GAIT. PT A&OX3, NO SPEECH DIFFICULTIES NOTED. PT PROVIDED WITH ADDITIONAL GOWN FOR COVER AND SLIPPER SOCKS BEFORE GETTING UP FOR SAFETY. PT STATED HER IV SITE WAS BURNING. I FLUSHED IT WITH NORMAL SALINE AND SHE SAID IT FEELS BETTER. PT UPDATED THAT CT RESULTS CAN TAKE UP TO 1 HOUR TO READ. PT REQUESTS TO HAVE SOMETHING TO DRINK, PT ADVISED THAT SHE WOULD NEED TO REMAIN NPO UNTIL ALL TEST RESULTS WERE AVAILABLE. CALL LIGHT IN REACH PT BACK IN ROOM FROM CT SCAN Pt still in CT Scan. PT TO CT SCAN VIA CART WITH TECH AND SECURITY PT OFF OF FRACTURE CRUZ, MILES CARE PROVIDED. PT HAS NO OTHER C/O NEEDS OR WANTS AT PRESENT TIME. CALL LIGHT IN REACH PT PLACED ON FRACTURE CRUZ PER REQUEST. CHUX PAD PLACED UNDER CRUZ TO PREVENT BED SOILING. PT JEANS REMOVED PER HER REQUEST FOR COMFORT. PT TOLERATED WELL. PT BED ADJUSTED FOR COMFORT AND PT REPOSITIONED. RESPS ARE EVEN AND UNLABORED. PT UPDATED ON STATUS OF CHILDREN AND SIG OTHER PRESENT IN ED. PT UPDATED THAT CT SCANS HAVE BEEN ORDERED AND ARE PENDING. PT UPDATED THAT ED HAS HIGH CENSUS AND THAT ASSESSMENT SPECIALIST WOULD BE AT BEDSIDE TO GET HER JADYN. CALL LIGHT IN REACH. Dr William made aware that no orders have been placed for this pt, orders placed by this nurse for CT scanning by this nurse per V.O of Dr William. Orders are pending Pt remains sinus rhythm on the monitor. Pt is laughing with visitor present at bedside. Resps are even and unlabored. Call light in reach Pt talking with visitor present at bedside. Pt is A&Ox3. PT STATES THAT SHE CAN'T STAY AWAKE BUT HAS TO BE ASKED TO STAY OFF OF CELL PHONE CALL TO FINISH ASSESSMENT. PT IS VERY DRAMATIC WHEN MOTHER IS PRESENT AT BEDSIDE. PT IS ON MONITORING AND WARM BLANKET FOR COMFORT. PT IS A&OX3, SPEECH IS APPROPRIATE. PT EVEN ASKS NURSING ABOUT TATTOOS AND MARKINGS. PT HAS NIPPLE PIERCINGS THAT NEED TO BE REMOVED, PT IS ABLE TO REMOVE ON HER OWN. PT PROVIDED WITH SMALL PLASTIC SEALABLE BAG FOR JEWELRY. PT HAS MULTIPLE VISITORS PRESENT AT BEDSIDE PT ARRIVE A&OX3, SPEECH IS CLEAR AND APPROPRIATE. PT CLOTHING REMOVED AND GOWN PLACED FOR ASSESSMENT . DR WILLIAM PRESENT AT BEDSIDE FOR ASSESSMENT AT THIS TIME. PT PLACED ON MONITORING. GAUZE 2X2 PLACED OVER RIGHT EAR OF C-COLLAR FOR PADDING PT STATES THE C-COLLAR IS KILLING MY EAR, IT'S RUBBING IT. PT STATES MUCH IMPROVEMENT AFTER PLACEMENT. PT STATES DIFFICULTY WITH STAYING AWAKE BUT IS VERY TALKATIVE WITH VISITORS AND NURSING. PT ABLE TO MOVE ALL EXTREMITIES WITH PURPOSEFUL MOVEMENT, LIMITED ON LEFT ARM BECAUSE OF PAIN. PULSES PRESENT AND STRONG, GRASP, PUSH/PULL EQUAL ALL EXTREMITIES. SKIN IS WARM AND DRY, ECCHYMOSIS NOTED TO LEFT ANTERIOR CHEST AROUND THE CLAVICLE TO TOP OF LEFT BREAST. PT ASKING FOR SOMETHING TO DRINK, PT ADVISED THAT SHE NEEDED TO REMAIN NPO UNTIL ALL TESTING COMPLETED. documented in this encounter Care Team (unrecognized sect ion and content) Team MemberRelationshipSpecialtyStart DateEnd Date Carmencita Edwards DO PCP - GeneralFamily Practice10/25/14Team MemberRelationshipSpecialtyStart DateEnd Date Carmencita Edwards DO PCP - GeneralFamily Practice10/25/14Team MemberRelationshipSpecialtyStart DateEnd Date Carmencita Edwards DO PCP - GeneralFamily Practice10/25/14Team MemberRelationshipSpecialtyStart DateEnd Date Jerry, Carmencita S, DO PCP - GeneralFamily Practice10/25/14Team MemberRelationshipSpecialtyStart DateEnd Date Jerry, Carmencita Mcwilliams, DO PCP - GeneralFamily Practice10/25/14Team MemberRelationshipSpecialtyStart DateEnd Date Jerry, Carmencita Mcwilliams, DO PCP - GeneralFamily Medicine10/25/14Team MemberRelationshipSpecialtyStart DateEnd Date Jerry, Carmencita Mcwilliams, DO PCP - GeneralFamily Medicine10/25/14Team MemberRelationshipSpecialtyStart DateEnd Date Jerry, Carmencita Mcwilliams, DO PCP - GeneralFamily Medicine10/25/14Team MemberRelationshipSpecialtyStart DateEnd Date Jerry, Carmencita Mcwilliams, DO PCP - GeneralFamily Medicine10/25/14Team MemberRelationshipSpecialtyStart DateEnd Date Jerry, Carmencita Mcwilliams, DO PCP - GeneralFamily Medicine10/25/14Team MemberRelationshipSpecialtyStart DateEnd Date Carmencita Edwards, DO PCP - GeneralFamily Medicine10/25/14Team MemberRelationshipSpecialtyStart DateEnd Date Jerry, Carmencita Mcwilliams, DO PCP - GeneralFamily Medicine10/25/14Team MemberRelationshipSpecialtyStart DateEnd Date Jerry, Carmencita Mcwilliams, DO PCP - GeneralFamily Medicine10/25/14Team MemberRelationshipSpecialtyStart DateEnd Date Jerry, Carmencita Mcwilliams, DO PCP - GeneralFamily Medicine10/25/14Team MemberRelationshipSpecialtyStart DateEnd Date Jerry, Carmencita Mcwilliams, DO PCP - GeneralFamily Medicine10/25/14Team MemberRelationshipSpecialtyStart DateEnd Date Jerry, Carmencita Mcwilliams, DO PCP - GeneralFamily Medicine10/25/14Team MemberRelationshipSpecialtyStart DateEnd Date Jerry, Carmencita Mcwilliams, DO PCP - GeneralFamily Medicine10/25/14Team MemberRelationshipSpecialtyStart DateEnd Date Jerry, Carmencita Mcwilliams, DO PCP - GeneralFamily Medicine10/25/14Team MemberRelationshipSpecialtyStart DateEnd Date Jerry, Carmencita Mcwilliams, DO PCP - GeneralFamily Medicine10/25/14Team MemberRelationshipSpecialtyStart DateEnd Date Jerry, Carmencita Mcwilliams, DO PCP - GeneralFamily Medicine10/25/14Team MemberRelationshipSpecialtyStart DateEnd Date Carmencita Edwards, DO PCP - GeneralFamily Medicine10/25/14Team MemberRelationshipSpecialtyStart DateEnd Date Carmencita Edwards DO PCP - GeneralFamily Medicine15Team MemberRelationshipSpecialtyStart DateEnd Date Carmencita Edwards DO PCP - GeneralFamily Medicine10/25/14Team MemberRelationshipSpecialtyStart DateEnd Date Carmencita Edwards DO PCP - GeneralFamily Medicine10/25/14Team MemberRelationshipSpecialtyStart DateEnd Date Carmencita Edwards MD [address] [place] [address] PCP - GeneralGeneral Practice03/14/23Team MemberRelationshipSpecialtyStart Date End Date Carmencita Edwards MD [address] [place] [address] PCP - GeneralGeneral Practice03/14/23Team MemberRelationshipSpecialtyStart Date End Date Carmencita Edwards MD [address] [place] [address] PCP - GeneralGeneral Practice03/14/23Te MemberRelationshipSpecialtyStart Date End Date Carmencita Edwards DO [address] [place] [address] PCP - GeneralFamily Wihtnyye41/10/23 Source Comments (unrecognize d section and content) In the event this informatio n is protected by the Federal Confidentiality of Alcohol and Drug Abuse Patient Records regulations: The Federal rules restrict any use of the information to criminally investigate or prosecute any alcohol or drug abuse patient.[facility] WestIn the event this information is protected by the Federal Confidentiality of Alcohol and Drug Abuse Patient Records regulations: The Federal rules restrict any use of the information to criminally investigate or prosecute any alcohol or drug abuse patient.[facility] WestIn the event this information is protected by the Federal Confidentiality of Alcohol and Drug Abuse Patient Records regulations: The Federal rules restrict any use of the information to criminally investigate or prosecute any alcohol or drug abuse patient.[facility] WestIn the event this information is protected by the Federal Confidentiality of Alcohol and Drug Abuse Patient Records regulations: The Federal rules restrict any use of the information to criminally investigate or prosecute any alcohol or drug abuse patient.[facility] WestIn the event this information is protected by the Federal Confidentiality of Alcohol and Drug Abuse Patient Records regulations: The Federal rules restrict any use of the information to criminally investigate or prosecute any alcohol or drug abuse patient.[facility] WestIn the event this information is protected by the Federal Confidentiality of Alcohol and Drug Abuse Patient Records regulations: The Federal rules restrict any use of the information to criminally investigate or prosecute any alcohol or drug abuse patient.[facility] WestIn the event this information is protected by the Federal Confidentiality of Alcohol and Drug Abuse Patient Records regulations: The Federal rules restrict any use of the information to criminally investigate or prosecute any alcohol or drug abuse patient.[facility] WestIn the event this information is protected by the Federal Confidentiality of Alcohol and Drug Abuse Patient Records regulations: The Federal rules restrict any use of the information to criminally investigate or prosecute any alcohol or drug abuse patient.[facility] WestIn the event this information is protected by the Federal Confidentiality of Alcohol and Drug Abuse Patient Records regulations: The Federal rules restrict any use of the information to criminally investigate or prosecute any alcohol or drug abuse patient.[facility] WestIn the event this information is protected by the Federal Confidentiality of Alcohol and Drug Abuse Patient Records regulations: The Federal rules restrict any use of the information to criminally investigate or prosecute any alcohol or drug abuse patient.[facility] WestIn the event this information is protected by the Federal Confidentiality of Alcohol and Drug Abuse Patient Records regulations: The Federal rules restrict any use of the information to criminally investigate or prosecute any alcohol or drug abuse patient.[facility] WestIn the event this information is protected by the Federal Confidentiality of Alcohol and Drug Abuse Patient Records regulations: The Federal rules restrict any use of the information to criminally investigate or prosecute any alcohol or drug abuse patient.[facility] WestIn the event this information is protected by the Federal Confidentiality of Alcohol and Drug Abuse Patient Records regulations: The Federal rules restrict any use of the information to criminally investigate or prosecute any alcohol or drug abuse patient.[facility] WestIn the event this information is protected by the Federal Confidentiality of Alcohol and Drug Abuse Patient Records regulations: The Federal rules restrict any use of the information to criminally investigate or prosecute any alcohol or drug abuse patient.[facility] WestIn the event this information is protected by the Federal Confidentiality of Alcohol and Drug Abuse Patient Records regulations: The Federal rules restrict any use of the information to criminally investigate or prosecute any alcohol or drug abuse patient.[facility] WestIn the event this information is protected by the Federal Confidentiality of Alcohol and Drug Abuse Patient Records regulations: The Federal rules restrict any use of the information to criminally investigate or prosecute any alcohol or drug abuse patient.[facility] WestIn the event this information is protected by the Federal Confidentiality of Alcohol and Drug Abuse Patient Records regulations: The Federal rules restrict any use of the information to criminally investigate or prosecute any alcohol or drug abuse patient.[facility] WestIn the event this information is protected by the Federal Confidentiality of Alcohol and Drug Abuse Patient Records regulations: The Federal rules restrict any use of the information to criminally investigate or prosecute any alcohol or drug abuse patient.[facility] WestIn the event this information is protected by the Federal Confidentiality of Alcohol and Drug Abuse Patient Records regulations: The Federal rules restrict any use of the information to criminally investigate or prosecute any alcohol or drug abuse patient.[facility] WestIn the event this information is protected by the Federal Confidentiality of Alcohol and Drug Abuse Patient Records regulations: The Federal rules restrict any use of the information to criminally investigate or prosecute any alcohol or drug abuse patient.[facility] WestIn the event this information is protected by the Federal Confidentiality of Alcohol and Drug Abuse Patient Records regulations: The Federal rules restrict any use of the information to criminally investigate or prosecute any alcohol or drug abuse patient.[facility] WestIn the event this information is protected by the Federal Confidentiality of Alcohol and Drug Abuse Patient Records regulations: The Federal rules restrict any use of the information to criminally investigate or prosecute any alcohol or drug abuse patient.[facility] WestIn the event this information is protected by the Federal Confidentiality of Alcohol and Drug Abuse Patient Records regulations: The Federal rules restrict any use of the information to criminally investigate or prosecute any alcohol or drug abuse patient.[facility] WestIn the event this information is protected by the Federal Confidentiality of Alcohol and Drug Abuse Patient Records regulations: The Federal rules restrict any use of the information to criminally investigate or prosecute any alcohol or drug abuse patient.[facility] WestIn the event this information is protected by the Federal Confidentiality of Alcohol and Drug Abuse Patient Records regulations: The Federal rules restrict any use of the information to criminally investigate or prosecute any alcohol or drug abuse patient.[facility] WestIn the event this information is protected by the Federal Confidentiality of Alcohol and Drug Abuse Patient Records regulations: The Federal rules restrict any use of the information to criminally investigate or prosecute any alcohol or drug abuse patient.[facility] WestIn the event this information is protected by the Federal Confidentiality of Alcohol and Drug Abuse Patient Records regulations: The Federal rules restrict any use of the information to criminally investigate or prosecute any alcohol or drug abuse patient.[facility] WestIn the event this information is protected by the Federal Confidentiality of Alcohol and Drug Abuse Patient Records regulations: The Federal rules restrict any use of the information to criminally investigate or prosecute any alcohol or drug abuse patient.[facility] WestIn the event this information is protected by the Federal Confidentiality of Alcohol and Drug Abuse Patient Records regulations: The Federal rules restrict any use of the information to criminally investigate or prosecute any alcohol or drug abuse patient.[facility] Scheduled Active and Recently Administ ered Medications (unrecognized section and content) Medication Order07/30/// bacitracin ointment (COMPLETED) Topical, Once, On Tue08/01/24 at 1300, For 1 dose, Apply to left thumb. * 1249 (Given - Provider: Charlene Frank RN - Comment: left thumb) lidocaine 1 % injection 5 mL (COMPLETED) 5 mL, IntraDERmal, ONCE, 1 dose, On Tue08/01/24 at 1245 * 1248 (Given - Provider: Charlene Frank RN - Comment: left thumb) FOR RECORDS PERTAINING TO PATIENTS WHO ARE OR HAVE BEEN ENROLLED IN A CHEMICAL DEPENDENCY/SUBSTANCEABUSE PROGRAM, SOME INFORMATION MAY BE OMITTED. This clinical summary was aggregated from multiple sources. Caution should be exercised in using it in the provision of clinical care. This summary normalizes information from multiple sources, and as a consequence, information in this document may materially change the coding, format and clinical context of patient data. In addition, data may be omitted in some cases. CLINICAL DECISIONS SHOULD BE BASED ON THE PRIMARY CLINICAL RECORDS. [employer] [facility]. provides no warranty or guarantee of the accuracy or completeness of information in this document.
[2025-05-08 15:02] LABS: Hematocrit 37.5 % (36.0-48.0); Hemoglobin 12.7 g/dL (12.0-16.0); Immature Granulocytes Abs Auto 0.01 10^3/uL (0.00-0.03); Immature Granulocytes Pct Auto 0.1 % (0.0-0.5); Lymphocytes Absolute Auto 2.4 10^3/uL (1.2-3.8); Mean Corpuscular HGB Conc 33.9 g/dL (29.9-35.2); Mean Corpuscular Hemoglobin 34.5 pg (26.7-34.0); Mean Corpuscular Volume 101.9 fL (81.0-99.0); Platelet Count 194 10^3/uL (150-450); Red Blood Count 3.68 10^6/uL (4.20-5.40); White Blood Count 6.7 10^3/uL (4.0-11.0)
[2025-05-08 15:07] LABS: Thyroid Stimulating Hormone 1.318 uIU/mL (0.358-3.740)
[2025-05-09 08:09] LABS: FSH 2.4 mIU/mL (.)
== END 2025-05-08 14:20 | disposition home or self-care (01) ==
PROVIDERS: PCP Family Medicine; Visit Provider Obstetrics & Gynecology
DX: E28.2 Polycystic ovarian syndrome (principal); Z90.710 Acquired absence of both cervix and uterus; R45.4 Irritability and anger; N95.1 Menopausal and female climacteric states
CPT/HCPCS: 36415; 82626; 82627; 82670; 83001; 83002; 83036; 84144; 84439; 84443; 84702; 85025

== ENCOUNTER 2025-05-08 20:19 | Outpatient (REF) | payer OTHER, SELFPAY ==
--- OUTSIDE RECORDS SUMMARY | 2010-10-28 10:30 | XMS_ITS | Continuity of Care Document ---
Author Organization [facility] Address [address] [place] [address] Phone Care Team Providers Care Electrician'S Assistant Name Role Phone Bryn Ramirez MD Unavailable Unavailable Allergies, Adverse Reactions, Alerts Substance Reaction Status Criticality methylphenidate Rashes Active No Informati on Procedures Procedure Date OFFICE/OUTPATIENT VISIT, [facility] GONADOTROPIN TEST Results Test Name Date and Time Measure Units Reference Range Abnormal Flag Status Comments Panel Description: hCG,Beta Subunit, Qnt, Serum Final hCG,Beta Subunit,Q nt,Serum 011 08:51:00 <1 mIU/mL Final Female (Non-pr egnant) 0 - 5 (Postmenopausal) 0 - 8 . Female () Weeks of Gestation 3 6 - 71 4 10 - 750 5 432 - 0654 6 596 - 13259 7 1451 -486967 8 37476 -399487 9 22072 -335609 10 27389 -422877 12 72645 -554875 14 48717 - 14900 15 17624 - 08287 16 9040 - 72396 17 8675 - 07733 18 5085 - 05277Setxn ECLIA methodologyPerformed by:[facility] (JEANNE) Advance Directives Directive Yes / No Effective Date File Name No Information Encounters Encounter Description Practice Location Reason(s) For Visit Diagnoses Date Provider OFFICE/OUTPATI ENT VISIT, MEÑO Moiz Brisco[facility], [address] [place] [address], [id number], [place] tel:[phone] [place] [facility] test (chief complaint) examination or test, negative result Ashley Clemente. [address] [place] [address], [id number] [address], [place], [place], [id number], [place]. tel:[phone] Family History Family Member Type Diagnosis Age At Onset Problem (finding) Family history of coronary arteriosclerosis Problem (finding) Family history of Diabe jade mellitus Problem (finding) Family history of Cance r, unknown Payers Payer name Insurance type Covered green party ID Authoriza tion(s) No Information Social History Type Description Quantity Date Captured Comments Alcohol Use Details Unknown Caffeine Use Details Unknown Tobacco Use Status No Information Smoking Status No Information Sex Female Vital Signs Date / Time: Height Weight BMI Pulse Rate Blood Pressure Temperature Respiratory Rate Body Surface Area Head Circumference Head Circ. Percentile Wt./Rogers. Percentile BMI percentile Pulse Ox Inhaled Ox 2:44 PM 68.00 in 160.00 lbs 24.3 3 kg/m eter (2) 72 /min 128/71 mm[Hg] 98.20 F 20 /min 79 Chief Complaint And Reason For Visit From encounter dated '10/28/2010 15:30'. test (chief complaint) History Of Present Illness Encounter Date Complaint History Of Prese nt Illness No Information Instructions Date Instruction Additional Infor mation No Information Assessments Type Assessment Date No Information Mental Status Date Cognitive Assessment N/A
--- OUTSIDE RECORDS SUMMARY | 2025-05-08 14:00 | XMS_ITS | Encounter Summary ---
Author Organization [facility] Address [address] [place] [address] Care Team Providers Care Helpdesk Technician Name Role Phone Stephen Nolasco MD Primary Care Provider [phone] Reason for Visit * ReasonCommentsGynecologic Exam Encounter Details DateTypeDepartmentCare Team (Latest Contact Info)Crelowfviae58/05/2025 2:00 PM ESTOffice Visit [facility] [address] [facility] [place] [address] Ken Floyd DO [address] [facility] [address] [place], [place] [phone] Well woman exam with routine gynecological exam; H/O: hysterectomy; PCOS (polycystic ovarian syndrome); Irritable; Menopausal symptoms Social History Tobacco UseTypesPacks/DayYears UsedDateSmoking Tobacco: AvpcttzZaxgpcksgq078.8 Started: 2007 Comments:Current Smoker, Viktor quency Unknown Alcohol UseStandard Drinks/WeekCommentsNever0 (1 standard drink = 0.6 oz pure alcohol)caffeine: 2-3 glasses a week teaCommentsNoSex and Gender InformationValueDate RecordedSex Assigned at MvporWggqrx78/10/2023 11:44 AM EDT Legal LxhBtdhhc16/15/2023 7:06 PM EDTGender XuseifkcJwknro29/10/2023 11:44 AM EDTSexual RceaoobqnqiBjzltpjb86/10/2023 11:44 AM EDTdocumented as of this encounter Last Filed Vital Signs Vital SignReadingTime TakenCommentsBlood Nrjtkkom852/7205/08/2025 1:41 PM EST Pulse--Temperature--Respiratory Rate--Oxygen Saturation--Inhaled Oxygen Concentration--Uetlke01.3 kg (155 lb)05/08/2025 1:41 PM BGWYvnpyz156.8 cm (5' 10 )05/08/2025 1:41 PM ESTBody Mass Index22.24107/08/2024 1:41 PM ESTdocumented in this encounter Plan of Treatment DateTypeDepartmentCare Team (Latest Contact Info)Dhnqrhxieds82/11/2026 1:00 PM ESTProcedure Visit [facility] [address] [facility] [place] [phone] Ken Floyd DO [address] [facility] [place] [address] NameTypePriorityAssociated DiagnosesOrder SchedulePap SmearPathology and CytologyRoutine Well [...] hormoneLabRoutine PCOS (polycystic ovarian syndrome) Ordered: 05/08/2025Hemoglobin F6pGkqDdsygpr H/O: hysterectomy Irritable Menopausal symptoms Ordered: 05/08/2025DHEA-sulfateLabRoutine [...] MemberRelationshipSpecialtyStart DateEnd Date Stephen Nolasco MD [address] [place] [address] PCP - GeneralGeneral Practice03/14/23documented as of this encounter
--- OUTSIDE RECORDS SUMMARY | 2025-05-08 20:23 | XMS_ITS | Clinical Summary ---
Author Organization [employer] [facility] tem Address [id number] [address] [place] [address] Care Team Providers Care End Finder Forming Department Name Role Phone Unavailable Primary Care Provider Unavailabl e Allergies Active AllergyReactionsCriticalityNoted IofjYdmdxbewPesjxecIfjzNvu36/22/2019 Other Reaction(s): GI Intolerance MbvhymnhMdqsc48/22/8042NfhalcrkqcsWxhlj72/22/3532Xjitipmdizfgntg82/10/2024 Tperktfmb71/10/4653AqpfbprpTkcgx82/22/2019 Medications MedicationSigDispense QuantityRefillsLast FilledStart DateEnd DateStatus magnesium [...] Not Asked; Counseling Given: Not Answered ChildcareAnswerDate FuhrjhbaQjntzjwerSqwxgsc69/10/2019EmploymentAnswerDate ZwuaphrzQzblaedtikLkcllvz51/10/2019Hunger ScreeningAnswerDate RecordedWithin the past 12 months we worried whether our food would run out before we got money to buy more.Never True06/12/2024Within the past 12 months the food we bought just didn't last and we didn't have money to get more.Never True4Purpose - LifeAnswerDate RecordedPurpose and direction in bldlUhajtmt66/10/2021 CommentsUnknownSex and Gender InformationValueDate RecordedSex Assigned at Not on fileLegal FhcLqfyde78/04/2015 12:37 PM EDTGender IdentityNot on file Sexual OrientationNot on file Last Filed Vital Signs Vital SignReadingTime TakenCommentsBlood Vyejgasd886/6806/12/2024 10:14 PM EST Ogxuw077406/12/2024 10:38 PM LCRMymclianivn05.2 ??C (97.2 ??F)06/12/2024 10:14 PM ESTRespiratory Moow067406/12/2024 10:38 PM ESTOxygen Pmendbyylt549%06/12/2024 10:30 PM ESTInhaled Oxygen Concentration--Raaekl52.8 kg (165 lb)06/12/2024 10:14 PM HQQAsbukc526.8 cm (5' 10 )06/12/2024 10:14 PM ESTBody Mass Index23.68 06/12/2024 10:14 PM EST Plan of Treatment Not on file Medical Devices Not on file Insurance
--- OUTSIDE RECORDS SUMMARY | 2025-05-08 20:23 | XMS_ITS | Encounter Summary ---
Author Organization [facility] Address [address], [address] [place] [address] Care Team Providers Care Corpsman Name Role Phone Stephen Nolasco DO Primary Care Provider [phone] Encounter Details DateTypeDepartmentCare Team (Latest Contact Info)Fzhuicwvgfr93/21/2025Orders Only [facility] Primary Care [address], [place] [phone] Stephen Nolasco DO [address], [place] [phone] Chronic fatigue; Iron deficiency; B12 deficiency Social History Tobacco UseTypesPacks/DayYears UsedDateSmoking Tobacco: Some BoniWdgxgxgjwb047.8 Started: 07/04/2007Smokeless Tobacco: CurrentAlcohol UseStandard Drinks/Week CommentsYes2 (1 standard drink = 0.6 oz pure alcohol)sociallyOverall Financial Resource Strain (CARDIA)AnswerDate RecordedHow hard is it for you to pay for the very basics like food, housing, medical care, and heating?Not hard at all 04/12/2023HQ-2AnswerDate RecordedPHQ-9 Total Xnhhh837PRAPARE - TransportationAnswerDate RecordedLack of Transportation (Medical)Not on [...] were you homeless or living in a skilled nursing (including now)?No04/23/2025UDIT-CAnswerDate RecordedQ1: How often do you [...] Domain Source: IP Abuse ScreeningAnswerDate Recorded Physical gkynuJwbmjt62/29/2025Verbal bzehiXicimm47/29/2025Emotional abuseDenies 08/01/2024Financial snpfvVqlhcm45/29/2025Sexual myhuoAqckgo78/29/2025 CommentsNoSex and Gender InformationValueDate RecordedSex Assigned at Aazxkj8604/16/2025 9:11 AM EDTLegal ZipXljdew64/06/2019 9:47 AM EDTGender Identity Opwpzq4804/16/2025 9:11 AM EDTSexual GydweaeptuzQjoddhea51/14/2025 9:11 AM EDT documented as of this encounter Functional Status * AUDIT-C ScoreAnswerDate of GifwdzuvjoInqkit962/21/2025 11:12 AM EDT Venita Yang MA * QuestionAnswerDate of AssessmentAuthorQ1: How often do you have a drink containing alcohol?Never04/23/2025 11:12 AM Venita Woods MAQ2: How many drinks containing alcohol do you have on a typical day when you are drinking?Patient does not drink04/23/2025 11:12 AM Venita Woods MA Q3: How often do you have six or more drinks on one occasion?Never04/23/2025 11:12 AM Venita Woods MA documented as of this encounter Plan of Treatment DateTypeDepartmentCare Team (Latest Contact Info)Ooxwmesisti93/22/2026 10:30 AM EDTOffice Visit [facility] Primary Care [address], [place] [phone] Stephen Nolasco DO [address] [place] [address] Annual physicaldocumented as of this encounter Procedures Procedure NamePriorityDate/TimeAssociated DiagnosisCommentsVITAMIN B12 & FOLATE Vftqnno3604/23/2025 11:40 AM EDT Chronic fatigue B12 deficiency TSH REFLEX TO EN6Gxevxtj23/21/2025 11:40 AM EDT Chronic fatigue CBC WITH AUTO GPXOCLYRGSBBDtefxhg18/21/2025 11:40 AM EDT Chronic fatigue IRON AND AAEPQkpdnvn21/21/2025 11:40 AM EDT Chronic fatigue Iron deficiency C-REACTIVE XHLXJETVnfkqsh40/21/2025 11:40 AM EDT Chronic fatigue HVZNWFPWYhlpbwy81/21/2025 11:40 AM EDT Iron deficiency COMPREHENSIVE METABOLIC MTXEPBhrezeu29/21/2025 11:40 AM EDT Chronic fatigue documented in this encounter Results * Ferritin (04/23/2025 11:40 AM EDT)ComponentValueRef RangeTest MethodAnalysis TimePerformed AtPathologist AhqglthtgSmfemizh6806 - 150 ng/mL04/24/2025 1:33 AM EDCHERRINGTON HOSPITAL LABORATORIESComment: FERRITIN Reference Ranges: Adult Males ?? 20 - 60 years: ?30 - 400 ng/mL Adult females 17 - 60 years: ?13 - 150 ng/mL Adults greater than 60 years: ?? no established reference range Pediatrics: ??no established reference range Performed at [facility], [address] [place] [address] . Specimen (Source)Anatomical Location / LateralityCollection Method / Volume Collection TimeReceived TimeBloodBLOOD SPECIMEN / Qyiwyeo5704/23/2025 11:40 AM EDT 04/23/2025 2:29 PM EDT Narrative Authorizing ProviderResult TypeResult StatusGregory S Gaurav DOCHEMISTRY ORDERABLESFinal ResultPerforming OrganizationAddressCity/State/ZIP CodePhone Number [facility] [address] [place], [place] [address] [phone] [phone] * TSH reflex to FT4 (04/23/2025 11:40 AM EDT)ComponentValueRef RangeTest Method Analysis TimePerformed AtPathologist SignatureTSH1.9000.440 - 3.860 uIU/mL 04/23/2025 3:[address] [facility] LABComment: Free T4 will automatically reflex ??with a TSH result of <0.270 or >4.200 Specimen (Source)Anatomical Location / LateralityCollection Method / Volume Collection TimeReceived TimeBloodBLOOD SPECIMEN / Rktivwy3104/23/2025 11:40 AM EDT 04/23/2025 2:32 PM EDT Narrative Authorizing ProviderResult TypeResult StatusCollege Hospital Costa Mesa DOCHEMISTRY ORDERABLESFinal ResultPerforming OrganizationAddressCity/State/ZIP CodePhone Number [facility] [address] [address], [facility] [phone] * (ABNORMAL) Vitamin B12 & Folate (04/23/2025 11:40 AM EDT)ComponentValueRef RangeTest MethodAnalysis TimePerformed AtPathologist SignatureVitamin B-108788 (H)232 - 1245 pg/mL04/24/2025 2:11 AM EDTMERCY LABORATORIESComment: Performed at [facility] [place] [address] . Folate>40.0(H)4.8 - 24.2 ng/mL04/24/2025 2:11 AM EDTMERCY LABORATORIESComment: Performed at [facility] [place] [address] . Specimen (Source)Anatomical Location / LateralityCollection Method / Volume Collection TimeReceived TimeBloodBLOOD SPECIMEN / Vnhrkzw9604/23/2025 11:40 AM EDT 04/23/2025 2:29 PM EDT Narrative Authorizing ProviderResult TypeResult StatusCollege Hospital Costa Mesa DOCHEMISTRY ORDERABLESFinal ResultPerforming OrganizationAddressCity/State/ZIP CodePhone Number [facility] [address] [place] [address], [facility] [phone] [place] [id number], [facility] [phone] * Iron and TIBC (04/23/2025 11:40 AM EDT)ComponentValueRef RangeTest Method Analysis TimePerformed AtPathologist BcqsfzgaiYadh8015 - 145 ug/dL04/24/2025 1:33 AM EDTMERCY XXNCUIQBZCBUCOMN528835 - 450 ug/dL04/24/2025 1:33 AM EDTMERCY LABORATORIESIron % Mesrtnklma9408 - 55 %04/24/2025 1:33 AM EDTMERCY JXJVHAJKCTDRGEGZ906024 - 347 ug/dL04/24/2025 1:33 AM EDTMHU HU K[facility] Comment: Performed at [facility], [address] [place] [address] . Specimen (Source)Anatomical Location / LateralityCollection Method / Volume Collection TimeReceived TimeBloodBLOOD SPECIMEN / Drhyysr8404/23/2025 11:40 AM EDT 04/23/2025 2:29 PM EDT Narrative Authorizing ProviderResult TypeResult [facility] DOCHEMISTRY ORDERABLESFinal ResultPerforming OrganizationAddressCity/State/ZIP CodePhone Number [facility] [address] [place] [address], [facility] [phone] [address], [facility] [phone] * C-Reactive Protein (04/23/2025 11:40 AM EDT)ComponentValueRef RangeTest Method Analysis TimePerformed AtPathologist SignatureCRP<3.00.0 - 5.0 mg/L1 3:[address] [facility] LABSpecimen (Source)Anatomical Location / LateralityCollection Method / VolumeCollection TimeReceived Time BloodBLOOD SPECIMEN / Lmqmnhh9404/23/2025 11:40 AM EDT1 2:33 PM EDT Narrative Authorizing ProviderResult TypeResult [facility] DOCHEMISTRY ORDERABLESFinal ResultPerforming OrganizationAddressCity/State/ZIP CodePhone Number [facility] [address] [place] [address], [facility] [phone] * (ABNORMAL) Comprehensive Metabolic Panel (04/23/2025 11:40 AM EDT)Component ValueRef RangeTest MethodAnalysis TimePerformed AtPathologist SignatureSodium 430357 - 144 mEq/L1 3:[address] [facility] Potassium4.03.4 - 4.9 mEq/L1 3:[address] [facility] SQPHpiymfxg07007 - 107 mEq/L1 3:[address] [facility] ITQQK32110 - 31 mEq/L1 3:[address] [facility] Anion Doc578 - 15 mEq/L1 3:[address] [facility] Bnmphpf1564 - 99 mg/dL04/23/2025 3:[address] [facility] HDP452 - 20 mg/dL04/23/2025 3:[address] [facility] Creatinine0.97(H)0.50 - 0.90 mg/dL04/23/2025 3:[address] [facility] LABEst, Glom Filt Rate79.7>6004/23/2025 3:[address] LABComment: Pediatric calculator link https://www.kidney.org/professionals/kdoqi/gfr_calculatorped Effective [...] secretion. Calcium9.48.5 - 9.9 mg/dL04/23/2025 3:[address] [facility] Total Protein7.36.3 - 8.0 g/dL04/23/2025 3:[address] [facility] LABAlbumin4.43.5 - 4.6 g/dL04/23/2025 3:[address] [facility] LABTotal Bilirubin0.60.2 - 0.7 mg/dL04/23/2025 3:[address] [facility] LABAlkaline Vytyjonjetg0060 - 130 U/L1 3:[address] [facility] PHPXLC809 - 33 U/L1 3:[address] [facility] IXKVSD815 - 35 U/L1 3:[address] [facility] LABGlobulin2.92.3 - 3.5 g/dL04/23/2025 3:[address] [facility] LABSpecimen (Source)Anatomical Location / LateralityCollection Method / Volume Collection TimeReceived TimeBloodBLOOD SPECIMEN / Tuxvybj8504/23/2025 11:40 AM EDT 04/23/2025 2:32 PM EDT Narrative Authorizing ProviderResult TypeResult StatusCollege Hospital Costa [facility]a DOCHEMISTRY ORDERABLESFinal ResultPerforming OrganizationAddressCity/State/ZIP CodePhone Number [facility] [address] [place] [address], [facility] [phone] * (ABNORMAL) CBC with Auto Differential (04/23/2025 11:40 AM EDT)ComponentValue Ref RangeTest MethodAnalysis TimePerformed AtPathologist SignatureWBC6.54.8 - 10.8 K/uL04/23/2025 2:[address] [facility] LABRBC4.03(L)4.20 - 5.40 M/uL04/23/2025 2:[address] [facility] LABHemoglobin 14.112.0 - 16.0 g/dL04/23/2025 2:[address] [facility] Fdxrvdjprs86.137.0 - 47.0 %04/23/2025 2:[address] [facility] BHRKCM844.0(H)79.4 - 94.8 fL04/23/2025 2:[address] [facility] NUJSJN56.0(H)27.0 - 31.3 pg04/23/2025 2:[address] [facility] XFONUDS15.333.0 - 37.0 %04/23/2025 2:[address] [facility] RDW11.511.5 - 14.5 %04/23/2025 2:[address] [facility] Vuvcjlziq355669 - 400 K/uL04/23/2025 2:[address] [facility] LABNeutrophils %52.4%04/23/2025 2:[address] [facility] Lymphocytes %39.0%04/23/2025 2:[address] [facility] Monocytes %6.6%04/23/2025 2:[address] [facility] Eosinophils %1.2%04/23/2025 2:[address] [facility] Basophils %0.5%04/23/2025 2:[address] [facility] Neutrophils Absolute3.41.4 - 6.5 K/uL04/23/2025 2:[address] [facility] LABLymphocytes Absolute2.51.0 - 4.8 K/uL04/23/2025 2:[address] [facility] LABMonocytes Absolute0.40.2 - 0.8 K/uL04/23/2025 2:[address] [facility] LABEosinophils Absolute0.10.0 - 0.7 K/uL 04/23/2025 2:[address] [facility] LABBasophils Absolute0.00.0 - 0.2 K/uL04/23/2025 2:[address] [facility] LABSpecimen (Source)Anatomical Location / LateralityCollection Method / VolumeCollection TimeReceived TimeBloodBLOOD SPECIMEN / Bbmlyox4604/23/2025 11:40 AM EDT 04/23/2025 2:31 PM EDT Narrative Authorizing ProviderResult TypeResult StatusStephen Nolasoc DOHEMATOLOGY ORDERABLESFinal ResultPerforming OrganizationAddressCity/State/ZIP CodePhone Number [facility] [address] [place] [address], [facility] [phone] documented in this encounter Visit Diagnoses Diagnosis Chronic fatigue Other malaise and fatigue Iron deficiency Other disorders of iron metabolism B12 deficiency Other B-complex deficiencies documented in this encounter Care Teams Team MemberRelationshipSpecialtyStart DateEnd Date Stephen Nolasco DO [address] [place], [place] [phone] PCP - GeneralFamily Qisbmxjb59/10/23documented as of this encounter
--- OUTSIDE RECORDS SUMMARY | 2025-05-08 20:23 | XMS_ITS | Clinical Summary ---
Author Organization [facility] Address [address], [address] [place] [address] Care Team Providers Care Mix Crusher Operator Name Role Phone Stephen Nolasco Primary Care Provider [phone] Allergies Active AllergyReactionsCriticalityNoted RkcmGfwgefknQomffzkSyasAkk88/10/2024 Bkwjkfpemptitsi09/10/2407Miudoytga03/10/2024 Medications MedicationSigDispense QuantityRefillsLast FilledStart DateEnd DateStatus magnesium [...] Problems No known active problems Encounters DateTypeDepartmentCare CgodImggenabvuy32/23/2025Results Follow-Up [address] [address] Stephen Nolasco DO 04/23/2025 11:00 AM EDTOffice Visit [address] [address] Stephen Nolasco DO Chronic fatigue (Primary Dx); B12 deficiency; Iron tpnjoxpecz53/21/2025Orders Only [address] [address] Stephen Nolasco DO Chronic fatigue; Iron deficiency; B12 wipcnpdaab08/31/2025Refill [address] [address] Stephen Nolasco DO Medication Refillfrom Last 3 Months Immunizations ImmunizationAdministration DatesNext UtoEYG8912/23/1993,1993,1993DTaP nzikcfe9507/30/1997,09/22/1994HPV (Human Papilloma Virus)Ktakrfi8606/02/2007, 12/30/2006,10/28/2006Hep B, ENGERIX-B, RECOMBIVAX-HB, (age - 19y), IM, 0.5mL1993,1993,1993Hib ceooyzm1309/22/1994,1993,1993 Influenza Virus Bfwhous9404/11/2003MMR, PRIORIX, M-M-R II, (age 12m+), SC, 0.5mL [...] Social History Tobacco UseTypesPacks/DayYears UsedDateSmoking Tobacco: Some NqcrIrhhhvxhxa883.8 Started: 07/04/2007Smokeless Tobacco: Current Tobacco Cessation:Ready to [...] were you homeless or living in a chcf (including now)?No04/23/2025UDIT-CAnswerDate RecordedQ1: How often do you [...] Domain Source: IP Abuse ScreeningAnswerDate Recorded Physical daefnGkwrmx67/29/2025Verbal pxdqvDeuskk16/29/2025Emotional abuseDenies 08/01/2024Financial ocjriKkprjk29/29/2025Sexual quyxgHwnlwt95/29/2025 CommentsNoSex and Gender InformationValueDate RecordedSex Assigned at Loprgo3504/16/2025 9:11 AM EDTLegal AhmJjcrnc10/06/2019 9:47 AM EDTGender Identity Ojinvh9104/16/2025 9:11 AM EDTSexual NfwaejmjwdsZwjkfzac38/14/2025 9:11 AM EDT Last Filed Vital Signs Vital SignReadingTime TakenCommentsBlood Mrkigyzt024/8210 11:06 AM EDT Qezxa116504/23/2025 11:06 AM UDWTouxhwdphws98.4 ??C (97.5 ??F)04/23/2025 11:06 AM EDTRespiratory Khzb303008/01/2024 12:30 PM ESTOxygen Ryvuhqocdj91%04/23/2025 11:06 AM EDTInhaled Oxygen Concentration--Nwqfkq83.8 kg (153 lb 12.8 oz)04/23/2025 11:06 AM GIZSezcid237.8 cm (5' 10 )04/23/2025 11:06 AM EDTBody Mass Index22.07 04/23/2025 11:06 AM EDT Plan of Treatment DateTypeDepartmentCare Team (Latest Contact Info)Lfudhcibmyl12/22/2026 10:30 AM EDTOffice Visit [facility] [address] [place] [address] Stephen Nolasco, [address] [place] [address] Annual physicalHealth MaintenanceDue DateLast DoneCommentsVaricella vaccine (1 of 2 - 13+ 2-dose series)2006HIV qeecmq7406/17/2008Hepatitis C screen 2011Pneumococcal 0-49 years Vaccine (1 of 2 - PCV)2012Flu vaccine (#1)/03/2003COVID-19 Vaccine (1 - season)2025 DTaP/Tdap/Td vaccine (8 - Td or Tdap)/, 10/25/2008, 07/30/1997, Additional history existsDepression Irsmxe73, 04/16/2025Hepatitis B inhwoekUbugqyjlj97/02/1994, 1993, 1993Hib rqafxuvWxvewrdmy93/22/1995, 1993, 1993Polio vaccineCompleted 07/30/1997, 1993, 1993, Additional history existsHPV vaccine Uayyfwsbo44/30/2007, 12/30/2006, 10/28/2006Meningococcal (ACWY) vaccineAged Out 10/25/2008No longer eligible based on patient's age to complete this topic Hepatitis A vaccineAged OutNo longer eligible based on patient's age to complete this topicMeningococcal B vaccineAged OutNo longer eligible based on patient's age to complete this topic Procedures Procedure NamePriorityDate/TimeAssociated DiagnosisCommentsFERRITINRoutine 04/23/2025 11:40 AM EDT Iron deficiency TSH REFLEX TO TD0Rlfibiv83/21/2025 11:40 AM EDT Chronic fatigue VITAMIN B12 & UQIMKLLuaocbn94/21/2025 11:40 AM EDT Chronic fatigue B12 deficiency IRON AND MCYJAhaoenz16/21/2025 11:40 AM EDT Chronic fatigue Iron deficiency C-REACTIVE GPKMITAYiyxiwz22/21/2025 11:40 AM EDT Chronic fatigue COMPREHENSIVE METABOLIC EYHQBBhwnyxp10/21/2025 11:40 AM EDT Chronic fatigue CBC WITH AUTO COVRJIEGIPGZItihzxz33/21/2025 11:40 AM EDT Chronic fatigue from Last 3 Months Results * (ABNORMAL) Vitamin B12 & Folate (04/23/2025 11:40 AM EDT)ComponentValueRef RangeTest MethodAnalysis TimePerformed AtPathologist SignatureVitamin B-098017 (H)232 - 1245 pg/mL04/24/2025 2:11 AM EDTMERCY LABORATORIESComment: Performed at [facility], [address] [place] [address] . Folate>40.0(H)4.8 - 24.2 ng/mL04/24/2025 2:11 AM EDTMLotus Tissue RepairY LABORATORIESComment: Performed at [facility], [address] [place] [address] . Specimen (Source)Anatomical Location / LateralityCollection Method / Volume Collection TimeReceived TimeBloodBLOOD SPECIMEN / Apvhngm4904/23/2025 11:40 AM EDT 04/23/2025 2:29 PM EDT Narrative Authorizing ProviderResult TypeResult StatusProvidence [facility] DOCHEMISTRY ORDERABLESFinal ResultPerforming OrganizationAddressCity/State/ZIP CodePhone Number [facility] [address] [place] [address], [facility] [phone] [address], [facility] [phone] * TSH reflex to FT4 (04/23/2025 11:40 AM EDT)ComponentValueRef RangeTest Method Analysis TimePerformed AtPathologist SignatureTSH1.9000.440 - 3.860 uIU/mL 04/23/2025 3:23 PM [facility] LABComment: Free T4 will automatically reflex ??with a TSH result of <0.270 or >4.200 Specimen (Source)Anatomical Location / LateralityCollection Method / Volume Collection TimeReceived TimeBloodBLOOD SPECIMEN / Ulnzvwz6904/23/2025 11:40 AM EDT 04/23/2025 2:32 PM EDT Narrative Authorizing ProviderResult TypeResult [facility] DOCHEMISTRY ORDERABLESFinal ResultPerforming OrganizationAddressCity/State/ZIP CodePhone Number [facility] [address] [place] [address], [facility] [phone] * (ABNORMAL) CBC with Auto Differential (04/23/2025 11:40 AM EDT)ComponentValue Ref RangeTest MethodAnalysis TimePerformed AtPathologist SignatureWBC6.54.8 - 10.8 K/uL04/23/2025 2:43 PM [facility] LABRBC4.03(L)4.20 - 5.40 M/uL04/23/2025 2:43 PM [facility] LABHemoglobin 14.112.0 - 16.0 g/dL04/23/2025 2:43 PM [facility] Jbeedckjac29.137.0 - 47.0 %04/23/2025 2:43 PM [facility] SCOOJM806.0(H)79.4 - 94.8 fL04/23/2025 2:43 PM [facility] SEBSBS23.0(H)27.0 - 31.3 pg04/23/2025 2:43 PM [facility] NOEVZJG09.333.0 - 37.0 %04/23/2025 2:43 PM [facility] RDW11.511.5 - 14.5 %04/23/2025 2:43 PM [facility] Jybmycnyv231438 - 400 K/uL04/23/2025 2:43 PM [facility] LABNeutrophils %52.4%04/23/2025 2:43 PM [facility] Lymphocytes %39.0%04/23/2025 2:43 PM [facility] Monocytes %6.6%04/23/2025 2:43 PM [facility] Eosinophils %1.2%04/23/2025 2:43 PM [facility] Basophils %0.5%04/23/2025 2:43 PM [facility] Neutrophils Absolute3.41.4 - 6.5 K/uL04/23/2025 2:43 PM [facility] LABLymphocytes Absolute2.51.0 - 4.8 K/uL04/23/2025 2:43 PM [facility] LABMonocytes Absolute0.40.2 - 0.8 K/uL04/23/2025 2:43 PM [facility] LABEosinophils Absolute0.10.0 - 0.7 K/uL 04/23/2025 2:43 PM [facility] LABBasophils Absolute0.00.0 - 0.2 K/uL04/23/2025 2:43 PM [facility] LABSpecimen (Source)Anatomical Location / LateralityCollection Method / VolumeCollection TimeReceived TimeBloodBLOOD SPECIMEN / Hteclwf3804/23/2025 11:40 AM EDT 04/23/2025 2:31 PM EDT Narrative Authorizing ProviderResult TypeResult StatusProv[facility] DOHEMATOLOGY ORDERABLESFinal ResultPerforming OrganizationAddressCity/State/ZIP CodePhone Number [facility] [address] [place] [address], [facility] [phone] * Iron and TIBC (04/23/2025 11:40 AM EDT)ComponentValueRef RangeTest Method Analysis TimePerformed AtPathologist SabzzatucAtio7395 - 145 ug/dL04/24/2025 1:33 AM EDTMERCY RFXHGZUOSMMKZVRG998077 - 450 ug/dL04/24/2025 1:33 AM EDTMERCY LABORATORIESIron % Jokrgbbpgr1118 - 55 %04/24/2025 1:33 AM EDTMERCY NPDHZHKSUUQXYGNQ600878 - 347 ug/dL04/24/2025 1:33 AM EDTMERCY LABORATORIES Comment: Performed at [facility], [address] [place] [address] . Specimen (Source)Anatomical Location / LateralityCollection Method / Volume Collection TimeReceived TimeBloodBLOOD SPECIMEN / Wtirnqq2904/23/2025 11:40 AM EDT 04/23/2025 2:29 PM EDT Narrative Authorizing ProviderResult TypeResult StatusProv[facility] DOCHEMISTRY ORDERABLESFinal ResultPerforming OrganizationAddressCity/State/ZIP CodePhone Number [facility] [address] [place] [address], [facility] [phone] [place] [address], [facility] [phone] * C-Reactive Protein (04/23/2025 11:40 AM EDT)ComponentValueRef RangeTest Method Analysis TimePerformed AtPathologist SignatureCRP<3.00.0 - 5.0 mg/L1 3:19 PM EDMER[facility] LABSpecimen (Source)Anatomical Location / LateralityCollection Method / VolumeCollection TimeReceived Time BloodBLOOD SPECIMEN / Jglxbod5404/23/2025 11:40 AM EDT1 2:33 PM EDT Narrative Authorizing ProviderResult TypeResult StatusProv[facility] DOCHEMISTRY ORDERABLESFinal ResultPerforming OrganizationAddressty/State/ZIP CodePhone Number [facility] [address] [place] [address], [facility] [phone] * Ferritin (04/23/2025 11:40 AM EDT)ComponentValueRef RangeTest MethodAnalysis TimePerformed AtPathologist XwqmkgxjyVdlugiqm7192 - 150 ng/mL04/24/2025 1:33 AM EDKING'S DAUGH[facility]IO LABORATORIESComment: FERRITIN Reference Ranges: Adult Males ?? 20 - 60 years: ?30 - 400 ng/mL Adult females 17 - 60 years: ?13 - 150 ng/mL Adults greater than 60 years: ?? no established reference range Pediatrics: ??no established reference range Performed at [facility], [address] [place] [address] . Specimen (Source)Anatomical Location / LateralityCollection Method / Volume Collection TimeReceived TimeBloodBLOOD SPECIMEN / Xlwyzob0804/23/2025 11:40 AM EDT 04/23/2025 2:29 PM EDT Narrative Authorizing ProviderResult TypeResult [facility] DOCHEMISTRY ORDERABLESFinal ResultPerforming OrganizationAddressty/State/ZIP CodePhone Number [facility] [address] [place] [address], [facility] [phone] [place] [address], [facility] [phone] * (ABNORMAL) Comprehensive Metabolic Panel (04/23/2025 11:40 AM EDT)Component ValueRef RangeTest MethodAnalysis TimePerformed AtPathologist SignatureSodium 342122 - 144 mEq/L1 3:23 PM [facility] Potassium4.03.4 - 4.9 mEq/L1 3:23 PM [facility] XTFKwmyarzx87797 - 107 mEq/L1 3:23 PM [facility] BXNAM64513 - 31 mEq/L1 3:23 PM [facility] Anion Pgk617 - 15 mEq/L1 3:23 PM [facility] Qrgztwb7217 - 99 mg/dL04/23/2025 3:23 PM [facility] CWS957 - 20 mg/dL04/23/2025 3:23 PM [facility] Creatinine0.97(H)0.50 - 0.90 mg/dL04/23/2025 3:23 PM [facility] LABEst, Glom Filt Rate79.7>6004/23/2025 3:23 PM [facility] LABComment: Pediatric calculator link https://www.kidney.org/professionals/kdoqi/gfr_calculatorped Effective [...] secretion. Calcium9.48.5 - 9.9 mg/dL04/23/2025 3:23 PM [facility] Total Protein7.36.3 - 8.0 g/dL04/23/2025 3:23 PM [facility] LABAlbumin4.43.5 - 4.6 g/dL04/23/2025 3:23 PM [facility] LABTotal Bilirubin0.60.2 - 0.7 mg/dL04/23/2025 3:23 PM [facility] LABAlkaline Kfchuanzncq9838 - 130 U/L1 3:23 PM [facility] QOQAKE870 - 33 U/L1 3:23 PM [facility] KECLIK902 - 35 U/L1 3:23 PM [facility] LABGlobulin2.92.3 - 3.5 g/dL04/23/2025 3:23 PM [facility] LABSpecimen (Source)Anatomical Location / LateralityCollection Method / Volume Collection TimeReceived TimeBloodBLOOD SPECIMEN / Ljrkjsb9004/23/2025 11:40 AM EDT 04/23/2025 2:32 PM EDT Narrative Authorizing ProviderResult TypeResult StatusStephen Nolasco DOCHEMISTRY ORDERABLESFinal ResultPerforming OrganizationAddressCity/State/ZIP CodePhone Number [facility] [address] [place] [address], [facility] [phone] from Last 3 Months Insurance Care Teams Team MemberRelationshipSpecialtyStart DateEnd Date Stephen Nolasco DO [address] [place] [address] PCP - GeneralFamily Ylyvvxvc66/10/23
--- OUTSIDE RECORDS SUMMARY | 2025-05-08 20:23 | XMS_ITS | Encounter Summary ---
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 Phone Stephen Nolasco MD Primary Care Provider [phone] Encounter Details DateTypeDepartmentCare Team (Latest Contact Info)Pagkoncsnre20/05/2025linisync Result Encounter [facility] Unsolicited Ken Floyd DO [address] [place] [address] Social History Tobacco UseTypesPacks/DayYears UsedDateSmoking Tobacco: VpozicyOzoaqqncwi195.8 Started: 2007 Comments:Current Smoker, Viktor quency Unknown Alcohol UseStandard Drinks/WeekCommentsNever0 (1 standard drink = 0.6 oz pure alcohol)caffeine: 2-3 glasses a week teaCommentsNoSex and Gender InformationValueDate RecordedSex Assigned at AawdpXfnlhs10/10/2023 11:44 AM EDT Legal JzhJwrdbr14/15/2023 7:06 PM EDTGender MgleyqhjOidopo50/10/2023 11:44 AM EDTSexual LjejrwooccaRpdfhktb74/10/2023 11:44 AM EDTdocumented as of this encounter Plan of Treatment DateTypeDepartmentCare Team (Latest Contact Info)Jjvoehcneiv09/11/2026 1:00 PM ESTProcedure Visit [facility] [address] [place] [phone] Ken Floyd DO [address] [facility] [place] [address] documented as of this encounter Procedures Procedure NamePriorityDate/TimeAssociated DiagnosisCommentsTBH PREG QUANT HCG Zvdwjcw1705/08/2025 2:36 PM EST MLR HEMOGLOBIN Q1UBkhsclp38/05/2025 2:36 PM EST ALL THYROXINE (T4) NKFKJrfgwoi15/05/2025 2:36 PM EST ALL THYROID STIM JCDXJAHYrcbzuv87/05/2025 2:36 PM EST ALL CBC WITH AUTO TNPUFsiblrb43/05/2025 2:36 PM EST documented in this encounter Results * ALL THYROXINE (T4) FREE (05/08/2025 2:36 PM EST)ComponentValueRef RangeTest MethodAnalysis TimePerformed AtPathologist SignatureFREE T40.900.76 - 1.46 ng/dLTBHSpecimen (Source)Anatomical Location / LateralityCollection Method / VolumeCollection TimeReceived Time05/08/2025 2:36 PM EST05/08/2025 2:39 PM EST Narrative [facility] - 05/08/2025 3:34 PM EST Authorizing ProviderResult TypeResult StatusCorey Everett DOCLINISYNCFinal Result Performing OrganizationAddressCity/State/ZIP CodePhone Number [facility] * TBH PREG QUANT HCG (05/08/2025 2:36 PM EST)ComponentValueRef RangeTest Method Analysis TimePerformed AtPathologist SignatureHCG QUANTITATIVE<1mIU/mLTBH Comment: 5-50 ? 0.2-1 WEEK 50-500 ? 1-2 WEEKS 100-5,000 ?2-3 WEEKS 500-10,000 ? 3-4 WEEKS 1,000-50,000 ?? 4-5 WEEKS 10,000-100,000 5-6 WEEKS 15,000-200,000 6-8 WEEKS 10,000-100,000 2-3 MONTHS Specimen (Source)Anatomical Location / LateralityCollection Method / Volume Collection TimeReceived Time05/08/2025 2:36 PM EST05/08/2025 2:39 PM EST Narrative [facility] - 05/08/2025 3:10 PM EST Authorizing ProviderResult TypeResult StatusCorey Everett DOCLINISYNCFinal Result Performing OrganizationAdddr. dan c. trigg memorial hospitalCity/State/ZIP CodePhone Number [facility] * ALL THYROID STIM HORMONE (05/08/2025 2:36 PM EST)ComponentValueRef RangeTest MethodAnalysis TimePerformed AtPathologist SignatureTHYROID STIMULATING HORMONE1.3180.358 - 3.740 uIU/mLTBHSpecimen (Source)Anatomical Location / LateralityCollection Method / VolumeCollection TimeReceived Time05/08/2025 2:36 PM EST05/08/2025 2:39 PM EST Narrative [facility] - 05/08/2025 3:10 PM EST Authorizing ProviderResult TypeResult StatusCorey Everett DOCLINISYNCFinal Result Performing OrganizationAddressty/State/ZIP CodePhone Number [facility] * MLR HEMOGLOBIN A1C (05/08/2025 2:36 PM EST)ComponentValueRef RangeTest Method Analysis TimePerformed AtPathologist SignatureGLYCOHEMOGLOBIN A1C5.44.5 - 6.2 %TBHComment: ADA RECOMMENDED LIMIT 4.0 - 6.0 ADA THERAPEUTIC TARGET < 7.0 ACTION SUGGESTED > 7.0 ESTIMATED AVERAGE FPTJRIP216nj/dLTBHSpecimen (Source)Anatomical Location / LateralityCollection Method / VolumeCollection TimeReceived Time05/08/2025 2:36 PM EST05/08/2025 2:39 PM EST Narrative [facility] - 05/08/2025 3:10 PM EST Authorizing ProviderResult TypeResult StatusCorey Everett DOCLINISYNCFinal Result Performing OrganizationAddCurahealth Heritage Valleyty/State/ZIP CodePhone Number [facility] * (ABNORMAL) ALL CBC WITH AUTO DIFF (05/08/2025 2:36 PM EST)ComponentValueRef RangeTest MethodAnalysis TimePerformed AtPathologist SignatureTBH WBC6.74.0 - 11.0 10 3/uLTBHTBH RBC3.68(L)4.20 - 5.40 10 6/uLTBHTBH HGB12.712.0 - 16.0 g/dL TBHTBH HCT37.536.0 - 48.0 %TBHTBH BQY101.9(H)81.0 - 99.0 fLTBHTBH MCH34.5(H) 26.7 - 34.0 pgTBHTBH MCHC33.929.9 - 35.2 g/dLTBHTBH RDW11.211.0 - 15.0 %TBHTBH CTZ135787 - 450 10 3/uLTBHTBH MPV9.69.5 - 13.5 fLTBHNEUTROPHILS PERCENT AUTO 55.443.0 - 75.0 %TBHLYMPHOCYTES PERCENT AUTO35.320.5 - 60.0 %TBHMONOCYTES PERCENT AUTO7.61.7 - 12.0 %TBHTBH EO %1.30.9 - 7.0 %TBHBASOPHILS PERCENT AUTO 0.30.2 - 2.0 %TBHIMMATURE GRANULOCYTES PCT AUTO0.10.0 - 0.5 %TBHNEUTROPHILS ABSOLUTE AUTO3.71.4 - 6.5 10 3/uLTBHLYMPHOCYTES ABSOLUTE AUTO2.41.2 - 3.8 10 3/uLTBHMONOCYTES ABSOLUTE AUTO0.50.3 - 0.8 10 3/uLTBHTBH EO #0.10.0 - 0.7 10 3/uLTBHBASOPHILS ABSOLUTE AUTO0.00.0 - 0.1 10 3/uLTBHIMMATURE GRANULOCYTES ABS AUTO0.010.00 - 0.03 10 3/uLTBHSpecimen (Source)Anatomical Location / LateralityCollection Method / VolumeCollection TimeReceived Time05/08/2025 2:36 PM EST05/08/2025 2:39 PM EST Narrative [facility] - 05/08/2025 3:03 PM EST Authorizing ProviderResult TypeResult StatusCorey Everett DOCLINISYNCFinal Result Performing OrganizationAddressCity/State/ZIP CodePhone Number [facility] documented in this encounter Visit Diagnoses Not on filedocumented in this encounter Care Teams Team MemberRelationshipSpecialtyStart DateEnd Date Stephen Nolasco MD [address] [place], [place] [id number] PCP - GeneralGeneral Practice03/14/23documented as of this encounter
--- OUTSIDE RECORDS SUMMARY | 2025-05-08 20:23 | XMS_ITS | Clinical Summary ---
Author Organization [facility] Address [address] [place] [address] Care Team Providers Care Head Of Precision Targeting Name Role Phone Stephen Nolasco DO Primary Care Provider [phone] Allergies Active AllergyReactionsCriticalityNoted FmwhIraeusscYzdcgm59/23/2019 Other reaction(s): Unknown TrspbxkWfbuxtzfb13/22/2019 Other reaction(s): Unknown JypjopdgMcbkf65/22/2019 Other reaction(s): Unknown GmrxybvowuuHbhza05/22/2019 Other reaction(s): Unknown Hydrocodone-Jyycfymrtgllv57/05/3963Tgmotrnucoayvjz17/05/2013TramadolHives 12/23/2018 Other reaction(s): Unknown Medications MedicationSigDispense QuantityRefillsLast [...] Last Filed Vital Signs Vital SignReadingTime TakenCommentsBlood Azyxfeel794/6707/ 8:15 PM EDT Hpjqm8045/ 8:15 PM PGVCngcokzbcjd23.9 ??C (98.4 ??F)01/13/2021 8:15 PM EDTRespiratory Nukz379201/13/2021 8:15 PM EDTOxygen Lhsfzdawkw83%01/13/2021 8:15 PM EDTInhaled Oxygen Concentration--Weight--Height--Body Mass Index-- Plan of Treatment Health MaintenanceDue DateLast DoneCommentsHEPATITIS C VIRUS AUPDWJYKQ1993 FQZCVBH84 1993HIV SCREENING AFQCRVQTWB89/15/2008HEP B VACCINE (1 of 3 - 19+ 3-dose series)2012TDAP (ADULT)2012CERVICAL CANCER SCREENING HILBVQHEVY06/15/2014HPV VACCINE (1 - 3-dose SCDM series)2020COVID-19 VACCINE (2024- season)2025INFLUENZA VACCINE (#1)2025 PNEUMOCOCCAL VACCINE SERIESAged OutNo longer eligible based on patient's age to complete this topic Insurance Care Teams Team MemberRelationshipSpecialtyStart DateEnd Date Stephen Nolasco DO [address] [place] [address] [facility] - [facility]01/13/21
--- OUTSIDE RECORDS SUMMARY | 2025-05-08 20:23 | XMS_ITS | CCD ---
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 ALYFacility:[facility]tart: 07-01-2022 End: 76-52-5941Ztselfr encounter procedureEsdras Epperson MD Work Phone: NeurologyComment on above:Intractable post-traumatic headache, unspecified chronicity patternStart: 06-15-2022 End: 87-58-6817Vycczyfqjzwg consultation with Chivo Canales PhD Work Phone: c[facility] MAINStart: 06-15-2022 End: 31-75-1316gbgfahcgzwGBCASISt. Mary's Medical Center SHSComment on above: Functional neurological symptom disorder (conversion disorder), with abnormal movement (Primary Dx); EDGAR (generalized anxiety disorder); Posttraumatic stress disorderStart: 06-15-2022 End: 99-16-0231Gmjjfrwym department patient visitTHERSt. Mary's Medical Center SHSStart: 56-65-1161NK Patient MsgCcf ProviderNeurologyComment on above: Consult OrderStart: 05-18-2022 End: 53-04-4508Cvfuxklh HealthDeepthi Canales PhD Work Phone: NeurologyComment on above:Functional neurological symptom disorder (conversion disorder), with abnormal movement (Primary Dx) Start: 05-04-2022 End: 54-22-7929ffymvclmeeQII M MERNERFacility:[facility] Hospitaltart: 05-04-2022 End: 81-21-3252ablxshkrjnNahGeorgina Deleon APRN.OB TECH Work Phone: NeurologyComment on above:Intractable paroxysmal hemicrania, unspecified chronicity pattern (Primary Dx); Psychogenic nonepileptic seizureStart: 05-04-2022 End: 48-35-4038Bbhocbsqmexv consultation with Zhen Deleon APRN.OB TECH Work Phone: [facility] MAINStart: 04-26-2022 End: 69-33-8812Cdyijmwf Taya Canales PhD Work Phone: NeurologyComment on above:Functional neurological symptom disorder (conversion disorder), with abnormal movement (Primary Dx); EDGAR (generalized anxiety disorder)Start: 04-19-2022 End: 04-02-9738Jfpprcqn Taya Canales PhD Work Phone: NeurologyComment on above:Functional neurological symptom disorder (conversion disorder), with abnormal movement (Primary Dx); EDGAR (generalized anxiety disorder); Posttraumatic stress disorderStart: 04-12-2022 End: 50-42-2164Hhuvsflx Taya Canales PhD Work Phone: NeurologyComment on above:Functional neurological symptom disorder (conversion disorder), with abnormal movement (Primary Dx) Start: 04-08-2022 End: 32-70-5005Altfvqxf Taya Canales PhD Work Phone: NeurologyComment on above:EDGAR (generalized anxiety disorder) (Primary Dx); Functional neurological symptom disorder (conversion disorder), with abnormal movement; Posttraumatic stress disorderStart: 53-54-1676Deamevtcf encounterGregayaka Edwards DO Work Phone: NOCComment on above:Follow Up Phone Call (All Clear) Start: 03-29-2022 End: 72-71-9226mwpnxqtfkfWWBQZIP KOTAGALFacility:[facility]tart: 03-28-2022 End: 66-11-4240Fjwexuqvwu and management of inpatientANDREAS AMADEO V Facility:[facility]: 03-09-2022 End: 03-89-6689tvomirqpisCX KEN FAZIOFacility:W3Bvaue: 46-69-2217Hwwub abstractingMalcolm Garrett MD Work Phone: NeurologyComment on above:Seizures (EMU orders)Start: 02-24-2022 End: 43-75-0777Vzmmmcx encounter Minh Garrett MD Work Phone: NeurologyComment on above:Generalized convulsive epilepsy (HCC) (Primary Dx)Start: 14-15-0682wlcftbwdqlMlxqqChristiane Tate APRN.CNP Work Phone: NeurologyComment on above:ResultsStart: 85-07-6663Z- mail encounter from Shamika Tate APRN.CNP Work Phone: [facility] MAINStart: 02-05-2022 End: 99-49-0296Zjevezpcvx hospital visit by Cesar Gee (1.5t) Work Phone: RadiologyComment on above:Post traumatic seizure (HCC) [R56.1]Start: 12-29-2021 End: 40-44-3244Gjegkzp encounter Luis Tate APRN.CNP Work Phone: NeurologyComment on above:Transient loss of consciousness (Primary Dx); Post traumatic seizure (HCC); Transient memory loss; Convulsions, unspecified convulsion type (HCC)Start: 12-28-2021 End: 07-20-3463Krotaoa encounter Nena EDWARDS [phone]-ZdqgaMiddletown [facility] Start: 12-22-2021 End: 06-99-2916Vhqbomjou department patient visitClarence Butcher [facility] Start: 12-21-2021 End: 07-77-3351Csa Drop offCarmencita EDWARDS [facility] Start: 12-21-2021 End: 14-58-5896Vqikaxa encounter procedureGregayaka S JERRY [phone]-BquwbUniversity Hospitals [facility] Start: 06-22-2021 End: 23-86-6603hqlbyfnzxnPI KEN FAZIOFacility:X8Edcfp: 58-91-1448Cdqiyjhhj for preprocedural laboratory examinationDR KEN [facility]: 05-05-2021 End: 91-39-9695ywokoqnxmiRK KEN FAZIOFacility:V2Mvudq: 05-05-2021 End: 68-95-5779Cldbjahku for preprocedural laboratory examinationDR KEN EVERETT Facility:O5Hrwpb: 58-08-6843Ecpsuiqqp for other preprocedural examinationDR KEN [facility]tart: 04-28-2021 End: 04-69-6505hntmyoszyqIH KEN FAZIOFacility:A6Ucwac: 04-28-2021 End: 04-34-3066Ooswkagpb for other preprocedural examinationDR KEN EVERETT Facility:A7Dlsur: 04-20-2019 End: 42-29-6677Keuadlsjwp hospital visit by Taty Ford Physical TherapyComment on above:ArrivedStart: 04-18-2019 End: 43-41-0041Xurarxwndo hospital visit by Taty Ford Physical TherapyComment on above:ArrivedStart: 04-16-2019 End: 47-31-3659Pbwltghggm hospital visit by Stephanie Jose Physical TherapyComment on above:ArrivedStart: 04-13-2019 End: 75-94-6994Tlgbvmupjn hospital visit by physicianRohan Ford Physical TherapyComment on above:ArrivedStart: 04-11-2019 End: 14-02-5704Iylmkhtzbw hospital visit by physicianRohan Ford Physical TherapyStart: 04-09-2019 End: 78-42-6376Twkjootxbo hospital visit by physicianRohan Ford Physical TherapyComment on above:ArrivedStart: 04-06-2019 End: 47-13-2832Nfmakksudr hospital visit by physicianKathy Jose Physical TherapyComment on above:ArrivedStart: 04-04-2019 End: 74-08-5194Zenntehyta hospital visit by physicianRohan Ford Physical TherapyComment on above:ArrivedStart: 03-26-2019 End: 44-79-5104Ljuxekerjv hospital visit by Stephanie Jose Physical TherapyComment on above:ArrivedStart: 03-22-2019 End: 03-85-7036Uhtmzkwecv hospital visit by physicianRohan Ford Physical TherapyComment on above:ArrivedStart: 03-21-2019 End: 61-84-3922Btlzfhxotk hospital visit by physicianRohan Ford Physical TherapyComment on above:ArrivedStart: 03-19-2019 End: 70-82-6640Hgvdqtraly hospital visit by Stephanie Jose Physical TherapyComment on above:ArrivedStart: 12-23-2018 End: 79-00-9399Ogwwtlwby department patient visitPHYSICIAN [facility] Start: 12-23-2018 End: 17-19-7606Grbttkxdk department patient visitPhysician [facility] Emergency DepartmentComment on above:Neck sprain, initial encounter (Primary Dx) Procedures DateProcedureProcedure DetailPerforming ClinicianStart: 36-00-3605RYX CBC WITH AUTO DIFFCorey Everett DO Work Phone: Start: 01-40-4325YLW,APTIMA HPV,AGE GDLNCorey Everett DO Work Phone: Start: 34-68-5038Floj cerv/vag auto thin layer prep mnl screenCorey Everett DO Work Phone: Start: 99-45-3950Ayk brain brain stem w/o w/contrast Cinda Tate MARKETING INFORMATION ANALYST.OB TECH Work Phone: Start: 47-27-9701EX of chestMartha Gavi Rachedi Work Phone: Start: 32-06-3969OW cervical spine without contrast Vera Gavi Rachedi Work Phone: Start: 50-00-1006BA of head without contrastMartha Gavi Rachedi Work Phone: Start: 15-72-6770FFYRRSDV TOPMartha Gavi Rachedi Work Phone: Start: 27-63-5811GHMON BLUE TOPMartha Gavi Rachedi Work Phone: Start: 37-77-1723EQHMN GREEN TOPMartha Gavi Rachedi Work Phone: Start: 19-22-2817WSDH GREEN TOPMartha Gavi Rachedi Work Phone: Start: 37-02-4487TSOTJVA DRAWMartha Gavi Rachedi Work Phone: Start: 12-06-2016H/O: tubal ligationGregory JERRY Arthroscopy of shoulderGregory JERRY laparscopyGregory JERRY Partial hysterectomyGregory JERRY tear duct surgeryGregory JERRY Tonsillectomy and adenoidectomyGregory JERRY Plan of Treatment DateCare ActivityDetailAuthorStart: 05-14-2026 End: 43-67-4420Ohggnfw encounter acwvzfyyv31/11/2026 1:00 PM EST Procedure Visit NOMPoppy [facility]AVERN [address] [address] Ken Floyd, DO [address] [place] [address] NOMPoppy [place] OBGYNStart: 01-22-2026 DTaP/Tdap/Td vaccine (8 - Td or Tdap)DTaP/Tdap/Td vaccine (8 - Td or Tdap)[facility] Access HospitalStart: 05-08-2025 End: 48-07-7180Yvembii encounter oizuogrqb52/05/2025 2:00 PM EST Office Visit MIKE TOBIAS [address] [place] [address] Ken Floyd, DO [address] [facility] [address] [place] [address] ArrivedNOMS [place] OBGYNComment on above:ArrivedStart: 05-02-2025 End: 42-81-5887Udanxuc encounter hcikmhwdz23/30/2025 10:00 AM EDT Office Visit MIKE DE LEON OB [address] [facility] [address] [place] [phone] Ken Floyd, DO [address] [place] [address] NOMS MOISES OBStart: 04-15-2025 End: 55-83-0668Eodasel encounter /13/2025 11:30 AM EDT Office Visit [facility] [address] [place] [address] Carmencita Edwards, [address] [place] [address] [facility] Specialty CareComment on above:AnnualStart: 92-28-6811Esxmnezath Screen Depression ScreenBon [facility] HospitalStart: 10-09-2024 End: 04-29-0475Fendzge encounter /08/2025 8:30 AM EDT Office Visit [facility] BCP OB [address] [address] Ken Floyd, DO [address] [facility] [address] [place] [address] NOMS BCP OBStart: 04-23-2024 End: 51-74-0516Uivqorh encounter yqynyzwsg77/21/2024 10:20 AM EDT Office Visit [facility] [address] [phone] Ken Floyd, DO [address] [place] [address] ArrivedNOKINDRED [facility] OBComment on above:ArrivedStart: 22-59-5352HLDAS-19 Vaccine ( season)COVID-19 Vaccine ( season)Critical Access HospitalStart: 07-68-9145Hjuubkjqq vaccinationFlu vaccine (#1)[facility]: 50-69-1544Vflamupgo for malignant neoplasm of cervixSentara Norfolk General Hospitalart: 58-66-3326Qybjxxmmi vaccinationSelect Medical [facility] Rehabilitation Hospitaltart: 63-40-5537QZWDQTPXWU ASSESSMENTDEPRESSION ASSESSMENTSelect Medical [facility] Rehabilitation Hospitaltart: 50-71-3079Uawfronhc vaccinationSelect Medical [facility]Health Rehabilitation Hospitaltart: 02-26-2022 End: 71-23-4744SHDY-CoV-2 (COVID-19) RNA [Presence] in Respiratory specimen by LAMIN with probe detectionINTERMEDIATE RAPID COVID Microbiology Routine Generalized convulsive epilepsy (HCC) Expected: 02/26/2022, Expires: 06/28/2022 [facility] Work Phone: Comment on above:Expected: 02/26/2022, Expires: 06/28/2022tart: 16-15-5236NGBBXPZPZJ ASSESSMENTDEPRESSION ASSESSMENTSelect Medical [facility] Rehabilitation Hospitaltart: 04-20-2019 End: 93-27-7529Hghdrjyewfu34/18/2019 Appointment Physical Therapy Rohan Hicks PTAMWHZ Physical TherapyStart: 04-18-2019 End: 09-98-4382Hamwejwzspw04/16/2019 Appointment Physical Therapy Rohan Hicks PTAMWHZ Physical TherapyStart: 04-16-2019 End: 32-47-3077Ojyenmzarkv66/14/2019 Appointment Physical Therapy Kathy Salinas PTMDez Physical TherapyStart: 04-13-2019 End: 16-47-2709OvporhhlvmqQWFI Physical TherapyStart: 04-11-2019 End: 08-02-2366Uweopswflec83/09/2019 Appointment Physical Therapy Rohan Hicks PTAMWHZ Physical TherapyStart: 04-09-2019 End: 40-95-0126Aiijkyumgpg20/07/2019 Appointment Physical Therapy Rohan Hicks PTAMWHZ Physical TherapyStart: 04-06-2019 End: 04-91-3874Uzmzivfswfk07/04/2019 Appointment Physical Therapy Kathy Salinas PTMDez Physical TherapyStart: 04-04-2019 End: 02-61-1015Evupngwgagc32/02/2019 Appointment Physical Therapy Rohan Hicks PTAMWHZ Physical TherapyStart: 04-02-2019 End: 21-33-9046Zkooqcxuaau62/30/2019 Appointment Physical Therapy Rohan Hicks PTAMWHZ Physical TherapyStart: 03-29-2019 End: 97-16-7123Pyknojkywzp73/26/2019 Appointment Physical Therapy Rohan Hicks PTAMWHZ Physical TherapyStart: 03-27-2019 End: 20-20-5862Uqshftwegpo16/24/2019 Appointment Physical Therapy Rohan Hicks PTAMWHZ Physical TherapyStart: 03-26-2019 End: 71-31-9655Ovjyxdqyjgl83/23/2019 Appointment Physical Therapy Kathy Salinas PTMDez Physical TherapyStart: 03-22-2019 End: 36-70-4938Kpssjmkfueo85/19/2019 Appointment Physical Therapy Rohan Hicks PTAMWHZ Physical TherapyStart: 03-21-2019 End: 35-68-5019Sigfoinceup55/18/2019 Appointment Physical Therapy Rohan Hicks, PTAMWHZ Physical TherapyStart: 68-94-1787Slhnkzxyq vaccinationFlu vaccine (#1) [facility]: 22-82-6151Bzuzataot vaccination givenSEQUENTIAL INFLUENZA VACCINE (Season Ended)[facility]: 81-93-6802Kcznmaao cancer screenCervical cancer screenFirelands Regional Medical Center: 99-66-7269XUG TESTINGPAP TESTINGSelect Medical OhioHealth Rehabilitation Hospitaltart: 69-49-4135Phnpkgtnz for malignant neoplasm of cervixPap smearBon [facility]: 47-56-7121QPtM/Tdap/Td vaccine (1 - Tdap)DTaP/Tdap/Td vaccine (1 - Tdap)[facility]: 78-14-5943Urfde microalbumin profileSelect Medical OhioHealth Rehabilitation Hospitaltart: 10-28-4510BRGZMNHFA C SCREENING HEPATITIS C SCREENINGSelect Medical OhioHealth Rehabilitation Hospitaltart: 44-04-4454Xmqffziaa C screening Hepatitis C screenN[facility]: 88-58-3836WOM SCREENINGHIV SCREENINGSelect Medical [facility] Rehabilitation Hospitaltart: 40-57-6428OPB screenHIV screenFirelands Regional Medical Center: 64-51-7637DSJ screeningHIV screenNorton Community Hospital: 74-34-2101DHN vaccine (1 - Female 3-dose series)HPV vaccine (1 - Female 3-dose series)[facility]: 94-90-6856Jyzjdwwgopn for human papillomavirus HPV VACCINES (1 - Female 3-dose series)[facility]: 80-72-9086Zpluboszs Vaccine (1 of 2 - 13+ 2-dose series)Varicella Vaccine (1 of 2 - 13+ 2-dose series)[facility]: 35-27-2552[place] depression screening assessmentDEPRESSION SCREENINGSelect Medical [facility] Rehabilitation Hospitaltart: 51-78-6834NUKKTSBDSKSI (1 - PCV)PNEUMOCOCCAL (1 - PCV)[facility]: 05-24-4916Xphaohtdnjzz vaccinationPneumococcal Vaccine (1 - PCV)[facility]: 10-16-5109QABLX- 19 VACCINE (#1)COVID-19 VACCINE (#1)[facility] Hospitalt[facility]: 30-25-8969Uvyfcyz and physical examination, annual for health [facility] VisitOhioHealth Start: 51-24-7550AYQAC-19 VACCINE (#1)COVID-19 VACCINE (#1)[facility] Start: 29-86-3067ALBMFLSMB B (1 of 3 - 3-dose series)HEPATITIS B (1 of 3 - 3- dose series)[facility]: 01-51-2939Esrjdtciz B Vaccine (1 of 3 - 3- dose series)Hepatitis B Vaccine (1 of 3 - 3-dose series)[facility]: 47-48-9167Aktbcyqaw for malignant neoplasm of cervixPAP SMEARIlioHealthStart: 31-92-9590Mtlnekg vaccinationTETANUS EVERY 10 YROhioHealthCardiovascular function eval w/tilt table w/mntrTILT TABLE EVALUATION Cardiology Routine Syncope and collapse 1 Occurrences starting 07/12/2022[facility] [facility] Work Phone: Comment on above:1 Occurrences starting 07/12/2022 Cytology Cervical or vaginal smear or scraping studyPap Smear Pathology and Cytology Routine Well woman exam with routine gynecological exam Ordered: [facility] Work Phone: comment on above:Ordered: 04/23/2024 End: 88-67-8354CWAE EEG LONGEPIL EEG LONG NEUROLOGY Routine Transient loss of consciousness 1 Occur[facility] 12/29/2021 [facility] Work Phone: Comment on above:1 Occurrences starting 12/29/2021 until 12/29/2022 End: 27-10-3700KWGO EEG W PROCEDUREEPIL EEG W PROCEDURE NEUROLOGY Routine Syncope and collapse 1 Occurrences starting 07/12/2022 until4[facility] Work Phone: Comment on above:1 Occurrences starting 07/12/2022 until 07/12/2023EPIL VEEG ADMIT TO EMU/PMUEPIL VEEG ADMIT TO EMU/PMU NEUROLOGY Routine Generalized convulsive epilepsy (HCC) [facility] Work Phone: Comment on above:Ordered: 02/26/2022Human papilloma virus DNA [Presence] in Unspecified specimen by Probe with amplificationHPV DNA probe, amplified Microbiology Routine Well woman exam with routine gynecological exam Ordered: 04/23/2024NOIN HealthcareComment on above:Ordered: 04/23/2024 End: 71-74-4983Nvm brain brain stem w/o w/contrast materialMRI BRAIN WO/W IVCON Radiology Routine Post traumatic seizure (HCC) Transient memory loss Convulsion s, unspecified convulsion type (HCC) 1 Occurrences starting 12/29/2021 until 01/28/2023[facility] Work Phone: Comment on above:1 Occurrences starting 12/29/2021 until 01/28/2023[facility] Immunizations Immunization DateImmunizationNotesCare YzekrgonFuodntyo67-63-6832ocejhug toxoid, reduced diphtheria toxoid, and acellular pertussis vaccine, adsorbedOchsner Medical Centerory JERRY [phone]-EurknCleveland Clinic [facility] Medicine [place] Comment on above:Result Comment: to right deltiod 59-74-9530fuaomyrcobxom polysaccharide (groups A, C, Y and W-135) diphtheria toxoid conjugate vaccine (MCV4P)Kieran Gray DO Work Phone: [phone] HospitalOrchard LabsSzeeyy09-19-8490gzbxnux toxoid, reduced diphtheria toxoid, and acellular pertussis vaccine, adsorbedMarc Anastasia DO Work Phone: [facility] HospitalOrchard LabsTmpyyv47-80-2242XLM, unspecified formulationJaelync Anastasia DO Work Phone: [facility] HospitalOrchard LabsLwsvzk74-20-8726CSA, unspecified formulationJaelync Anastasia DO Work Phone: [facility] HospitalOrchard LabsYevdqh51-80-6225QZL, unspecified formulationJaelync Anastasia DO Work Phone: [facility] HospitalOrchard LabsRnlkyk84-14-3053byvxxfeya virus vaccine, unspecified formulationMarc Anastasia DO Work Phone: [phone]11-24-1999measles, mumps and rubella virus vaccineMarc Anastasia DO Work Phone: [phone] Access HospitalEnmvyx80-14-4048xrqsebvrvy, tetanus toxoids and acellular pertussis vaccine, unspecified formulationMarc Anastasia DO Work Phone: [phone] Access HospitalGcvspc43-36-2715ndqlgtjknj vaccine, inactivatedMarc Anastasia DO Work Phone: [phone]03-27-1995measles, mumps and rubella virus vaccineMarc Anastasia DO Work Phone: [phone] Access HospitalZlenbf61-65-2036tkypmtcluy, tetanus toxoids and acellular pertussis vaccine, unspecified formulationMarc Anastasia DO Work Phone: [phone] Access HospitalNrzrsk65-51-8834vlhibvagiwf influenzae type b vaccine, conjugate unspecified formulationMarc Anastasia DO Work Phone: [phone] Access HospitalOtwhqq17-97-4589vfnzsnfzdw, tetanus toxoids and pertussis vaccineMarc Anastasia DO Work Phone: [phone] Access HospitalRbdcug57-45-9137tljurhyudk vaccine, inactivatedMarc Anastasia DO Work Phone: [phone] Access HospitalEbmdye42-99-0242ihrquutst B vaccine, pediatric or pediatric/adolescent dosageMarc Anastasia DO Work Phone: [phone] Access HospitalEowmld95-03-9849nvnrljxrcq, tetanus toxoids and pertussis vaccineMarc Anastasia DO Work Phone: [phone] Access HospitalTcvpde56-18-1960klkgsyktbcf influenzae type b vaccine, conjugate unspecified formulationMarc Anastasia DO Work Phone: [phone] Access HospitalKwydys26-88-7084wgndfmddm B vaccine, pediatric or pediatric/adolescent dosageMarc Anastasia DO Work Phone: [phone] Access HospitalVpveec00-59-5189qbhqiomtmc vaccine, inactivatedMarc Anastasia DO Work Phone: [phone] HospitalJagTag [facility] Ovzamn07-75-5425zeerxsuclv, tetanus toxoids and pertussis vaccineMar Anastasia DO Work Phone: [phone] Hljozw43-35-1074ixtwqqqmupm influenzae type b vaccine, conjugate unspecified formulationMarc Anastasia DO Work Phone: [phone] HospitalJagTag [facility] HospitalRzzncw41-21-6526smirlttar B vaccine, pediatric or pediatric/adolescent dosageMarc Anastasia DO Work Phone: [phone])[facility] HospitalQfiuja74-75-6514thhvcoagzf vaccine, inactivatedMarc Anastasia DO Work Phone: [phone] [facility] CenterJagTag [facility] County HospitalNEGATED: Highlighted row has not occurred!72-65-7480tkivjdipj virus vaccine, live, attenuated, for intranasal useThe Specialty Hospital of [facility]idian [phone]-NkxzyUniversity Hospitals Elyria Medical Center Payers DatePayer CategoryPayerPolicy [id number] Private Health [facility] Member Subscriber Plan / Payer (Effective 2022-Present) Name: Jeff Shea Relation to Subscriber: Self Name: Jeff Shea Payer ID: Not on file Group ID: [id number] Type: Not on file Address: [address] [place] [id number] [employer] [place] MEDICA[place] xxxxxxxxxxx 2019-Present [phone] CLAIMS DEPARTMENT [address] [place], [place] [address]iwqgaebgzeq [id number] [id number] 2019 [id number] 2010MedicaidCARESOURCECARESOURCE MEDICAID [employer] MEDICAID [id number] 2009-Present [phone] [address] [place] [address] [id number] 2010Medicaid [id number] [id number] 2.16840.1.358631.3.57[id number] 2.840.1.720461.3.57[id number] 2.840.1.224480.3.57[id number] 2.16840.1.527485.3.57[id number] 2.16840.1.147995.3.57[id number] 2.16840.1.150122.3.57[id number] 2.840.1.120054.3.57[id number] 2.840.1.912813.3.579.2.727 [id number] VEHIC[employer] ACCIDENT AUTO INSURANCE xxxxxxxxx Effective for all datesxxxxxxxxx [id number] Social History DateTypeDetailFacilityTobacco smoking status NHISUnknown if ever smoked South CarolinaHealthStart: 58-21-0697Xox Assigned At BirthNot on fileOhioHealthStart: 07-04-2007 End: 62-50-6278Hksstqw smoking status NHISCurrent every day smokerKerrick ClinicStart: 07-37-9284Hbgziae SDOH Alcohol Ptmwepkrq5QfyfWqzphiNvqqr: 12-21-2021 End: 85-62-6381Jvrczzc smoking statusHeavy tobacco smoker (finding)[facility] Start: 95-50-0681Dgwskil smoking statusNeProtestant Deaconess Hospital Start: 03-08-2023 End: 65-12-7811Ayr Assigned At [facility] Start: 90-87-5715Rufjact smoking status NHISOccasional tobacco smokerSelect Medical OhioHealth Rehabilitation Hospitaltart: 88-17-4626Ekroqif of tobacco useCigarette SmokerSelect Medical OhioHealth Rehabilitation Hospitaltart: 12-29-2021 End: 84-64-5183Wjyrnns use and exposureSmokeless tobacco non-userSelect Medical OhioHealth Rehabilitation Hospitaltart: 12-29-2021 End: 81-96-6692Oyyymsv intakeCurrent drinker of alcohol (finding)Kerrick ClinicStart: 74-47-0073Ohrvlbb SDOH Alcohol CommentrareClevelunc health johnston clayton ClinicStart: 12-19-2021 End: 93-19-5216Gnobhkcg to SARS-CoV-2 (event)Not sureSelect Medical OhioHealth Rehabilitation Hospitaltart: 26-24-9023Ksd Assigned At [facility] ClinicStart: 13-07-7940Vtbbyef smoking status NHISEx-smokerTuscarawas HospitalHistory of tobacco useCurrent smoker [facility] HospitalComment on above:denies Tobacco smoking statusNo Smoking Status [facility] Start: 03-08-2023 End: 70-25-8949Ozigbnu of Social functionSelect Medical OhioHealth Rehabilitation Hospitaltart: 64-58-8377Cwvrna identityIdentifies as female gender (finding)[facility] Hospitaltart: 02-01-2022 Sexual orientationBisexual (finding)[facility] Hospitaltart: 03-02-2023 End: 15-05-0733Vyttfnl smoking status NHISTobacco smoking consumption unknown [facility] HealthcareStart: 03-14-2023 End: 35-24-2141Dwiekzgqd beverage intakeLifetime non-drinker (finding)[facility] HealthcareStart: 18-36-0061Gtnyhyz CommentCurrent Smoker, Frequency UnknownNOMS HealthcareStart: 83-52-3866Bemxvxi Commentcaffeine: 2-3 glasses a week teaNOMS HealthcareHistory of tobacco useTobacco Use Types Packs/Day Years Used Date Smoking Tobacco: Every Day Cigarettes 1 17.1 Started: 2007 E-Cigarettes Smokeless Tobacco: NeverRappahannock [facility] Hospital Tagoo(I/We) worried whether (my/our) food would run out before (I/we) got money to buy more.Never trueBon Prescott Va Medical CenterMegapolygon Corporation [facility] Medical CenterStart: 54-96-9418Ozmeujs CommentsociallyCritical Access Hospital Medical Equipment Procedure CodeEquipment CodeEquipment Original TextEquipment IdentifierDatesUSE DIRECTED ONCE MONTHLY WITH VITAMIN N90Tfkso: 03-25-7782Dliqulk on above:USE DIRECTED ONCE MONTHLY WITH VITAMIN B12 Functional Status SkdvCqmvkvsimfMzyavqZsydciyn23-74-6829Ulddfkride StatusN/[facility]06-27-2022Functional StatusN/[facility] [id number] StatusN/[facility]06-20-2022Functional StatusN/[facility] Clinical Notes 06-22-2021 to 08-01-2024 Note Date & XfquSbedQiehrdof18-11-2349 Hospital Discharge instructions* Discharge Instructions* Kieran Gray DO - 08/01/2024 12:33 PM EST Follow-up with your family doctor in 7 days for suture removal. * Attachments The following attachments cannot be sent through Care Everywhere. * Hand Laceration: Stitches (Bruneian) documented in this encounterBon [facility]10-21-2024 History of Present illness Narrative* Laura Funez [...] / LYSIS 01/08/2019 PAP SMEAR 03/04/2021 Negative ME TONSILLECTOMY & ADENOIDECTOMY AGE 10/> 08/2013 SHOULDER ARTHROSCOPY Left 02/27/2019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
--- OUTSIDE RECORDS SUMMARY | 2025-05-08 20:23 | XMS_ITS | Clinical Summary ---
Author Organization [facility] Address [address] [place] [address] Care Team Providers Care Deaf Teacher Name Role Phone Stephen Nolasco MD Primary Care Provider [phone] Allergies Active AllergyReactionsCriticalityNoted CurgJzegmhgmIrlaiv70/23/2019 Other reaction(s): Unknown Other Reaction(s): Anaphylactic shock Romano Flavoring Agent (Non-Screening)PzamobmhegaOooc27/07/2023odeineGI intolerance,FjmaMsm7012/23/2018 Other Reaction(s): Dyspepsia Other reaction(s): Unknown Other Reaction(s): Dyspepsia, GI Intolerance, Unknown Other Reaction(s): GI Intolerance DiazepamGI intolerance,Hives,AgruCox1512/23/2018 Other Reaction(s): rash/vomiting Other reaction(s): Unknown Other Reaction(s): Unknown HydrocodoneHives,UyvtYxg2112/23/2018 Other reaction(s): Unknown Other Reaction(s): Unknown, Unknown Hydrocodone-AcetaminophenHives,QscsJrx9203/10/20233318QatetiobfoqpkfwYrfkKth50/07/2023 HrzrwfudoZekyHpm58/28/2022 Other Reaction(s): Unknown TramadolHives,PcdzDtd7412/23/2018 Other reaction(s): Unknown Other Reaction(s): Unknown, Vomiting Medications MedicationSigDispense QuantityRefillsLast FilledStart DateEnd DateStatus propranolol (Inderal) 20 MG tablet Take 20 mg by mouth in the morning.03/08/2023ctive magnesium oxide (Mag-Ox) 400 (241.3 Mg) MG tablet Take 400 mg by mouth in the morning.07/01/2022ctive Encounters DateTypeDepartmentCare GrurBiqdeykwmgo67/05/2025 2:00 PM ESTOffice Visit [facility] [address] [place] [phone] Ken Floyd, DO Well woman exam with routine gynecological exam; H/O: hysterectomy; PCOS (polycystic ovarian syndrome); Irritable; Menopausal hzomjljs14/05/2025linisync Result Encounter [facility] Unsolicited Ken Floyd, 05/08/2025amboo flowsheet [facility] [address] [place] [phone] Ken Floyd, DO 05/08/2025Travelfrom Last 3 Months Family History Medical HistoryRelationNameCommentsDiabetesMaternal GrandfatherMental illness Paternal GrandmotherPsoriasisNeg HxRelationNameStatusCommentsDaughterAliveFather AliveMaternal GrandfatherAliveMaternal GrandmotherAliveMotherAlivePaternal GrandfatherAlivePaternal GrandmotherAliveSiblingAliveSonAlive Social History Tobacco UseTypesPacks/DayYears UsedDateSmoking Tobacco: DonyzqlSgebbbswll398.8 Started: 2007 Tobacco Cessation:Counseling Given: Not Answered Comments:Current Smoker, Frequency Unknown Alcohol UseStandard Drinks/WeekCommentsNever0 (1 standard drink = 0.6 oz pure alcohol)caffeine: 2-3 glasses a week teaCommentsNoSex and Gender InformationValueDate RecordedSex Assigned at PgantCnybjp04/10/2023 11:44 AM EDT Legal WvmOodkyw24/15/2023 7:06 PM EDTGender TuvzxnawLmpndo78/10/2023 11:44 AM EDTSexual RvbsoizbtvjMvaryldm22/10/2023 11:44 AM EDT Last Filed Vital Signs Vital SignReadingTime TakenCommentsBlood Bqwhbzib567/7205/08/2025 1:41 PM EST Pulse--Temperature--Respiratory Rate--Oxygen Saturation--Inhaled Oxygen Concentration--Fkvivr66.3 kg (155 lb)05/08/2025 1:41 PM MWFQowaxg809.8 cm (5' 10 )05/08/2025 1:41 PM ESTBody Mass Index22.24107/08/2024 1:41 PM EST Plan of Treatment DateTypeDepartmentCare Team (Latest Contact Info)Kzhuaxysuvt59/11/2026 1:00 PM ESTProcedure Visit [facility] [address] [place] [phone] Ken Floyd, [address] [place] [address] Procedures Procedure NamePriorityDate/TimeAssociated DiagnosisCommentsALL THYROXINE (T4) RKLADvbkxjc79/05/2025 2:36 PM EST [facility] PREG QUANT IVEOfsjwxx45/05/2025 2:36 PM EST ALL THYROID STIM LOAKTSBJgmwxeh57/05/2025 2:36 PM EST MLR HEMOGLOBIN J2TBrjlvke44/05/2025 2:36 PM EST ALL CBC WITH AUTO WWDBDnkjzud88/05/2025 2:36 PM EST from Last 3 Months Results * [facility] PREG QUANT HCG (05/08/2025 2:36 [...] ProviderResult TypeResult StatusCorey Everett DOCLINISYNCFinal Result Performing OrganizationAddUPMC [facility] Psych[facility] Hospitalty/State/ZIP CodePhone Number [facility] * MLR HEMOGLOBIN A1C (05/08/2025 2:36 PM EST)ComponentValueRef RangeTest Method Analysis TimePerformed AtPathologist SignatureGLYCOHEMOGLOBIN A1C5.44.5 - 6.2 %TBHComment: ADA RECOMMENDED LIMIT 4.0 - 6.0 ADA THERAPEUTIC TARGET < 7.0 ACTION SUGGESTED > 7.0 ESTIMATED AVERAGE RASPGLF387va/dLTBHSpecimen (Source)Anatomical Location / LateralityCollection Method / VolumeCollection TimeReceived Time05/08/2025 2:36 PM EST05/08/2025 2:39 PM EST Narrative CLINISYNC - 05/08/2025 3:10 PM EST Authorizing ProviderResult TypeResult StatusCorey [facility] DOCLINISYNCFinal Result Performing OrganizationAddUPMC [facility] Psychiatric Hospitalty/State/ZIP CodePhone Number [facility] * ALL THYROXINE (T4) FREE (05/08/2025 2:36 PM EST)ComponentValueRef RangeTest MethodAnalysis TimePerformed AtPathologist SignatureFREE T40.900.76 - 1.46 ng/dLTBHSpecimen (Source)Anatomical Location / LateralityCollection Method / VolumeCollection TimeReceived Time05/08/2025 2:36 PM EST05/08/2025 2:39 PM EST Narrative CLINISYNC - 05/08/2025 3:34 PM EST Authorizing ProviderResult TypeResult StatusCorey Everett DOCLINISYNCFinal Result Performing OrganizationAdd[facility]/State/ZIP CodePhone Number [facility] * ALL THYROID STIM HORMONE (05/08/2025 2:36 PM EST)ComponentValueRef RangeTest MethodAnalysis TimePerformed AtPathologist SignatureTHYROID STIMULATING HORMONE1.3180.358 - 3.740 uIU/mLTBHSpecimen (Source)Anatomical Location / LateralityCollection Method / VolumeCollection TimeReceived Time05/08/2025 2:36 PM EST05/08/2025 2:39 PM EST Narrative CLINISYNC - 05/08/2025 3:10 PM EST Authorizing ProviderResult TypeResult StatusCorey Everett DOCLINISYNCFinal Result Performing OrganizationAddressCity/State/ZIP CodePhone Number [facility] * (ABNORMAL) ALL CBC WITH AUTO DIFF (05/08/2025 2:36 PM EST)ComponentValueRef RangeTest MethodAnalysis TimePerformed AtPathologist SignatureTBH WBC6.74.0 - 11.0 10 3/uLTBHTBH RBC3.68(L)4.20 - 5.40 10 6/uLTBHTBH HGB12.712.0 - 16.0 g/dL TBHTBH HCT37.536.0 - 48.0 %TBHTBH WEL165.9(H)81.0 - 99.0 fLTBHTBH MCH34.5(H) 26.7 - 34.0 pgTBHTBH MCHC33.929.9 - 35.2 g/dLTBHTBH RDW11.211.0 - 15.0 %TBHTBH CJD169319 - 450 10 3/uLTBHTBH MPV9.69.5 - 13.5 [...] Location / LateralityCollection Method / VolumeCollection TimeReceived Time11/11/2024 2:36 PM EST05/08/2025 2:39 PM EST Narrative CLINISYNC - 05/08/2025 3:03 PM EST Authorizing ProviderResult TypeResult StatusCorey Everett DOCLINISYNCFinal Result Performing OrganizationAddressCity/State/ZIP CodePhone Number CLINIS[facility]NC [facility] from Last 3 Months Insurance Care Teams Team MemberRelationshipSpecialtyStart DateEnd Date Stephen Nolasco MD [address] [place], [place] [id number] PCP - GeneralGeneral Practice03/14/23
--- OUTSIDE RECORDS SUMMARY | 2025-05-08 20:23 | XMS_ITS | Clinical Summary ---
Author Organization [facility] Address [address] [place] [address] Care Team Providers Care Independent Distributor Name Role Phone Negro Nolascoory Poppy QUINTERO Primary Care Provider [phone] Allergies Active AllergyReactionsCriticalityNoted DateCommentsCherry FlavorAnaphylaxis 12/24/20189444GrodojeJgkoboz78/23/1339VonylgebsezftsiWrrc20/24/2022Hydrocodone Iuidgha3212/24/20189232VetvhsfcoSgyvlrn20/28/1318GimfcanmNedggso58/23/2019Diazepam Intntbo2812/24/2018 Medications MedicationSigDispense QuantityRefillsLast FilledStart DateEnd DateStatus hydrOXYzine [...] ctive Active Problems ProblemNoted DateDiagnosed DateIntractable post-traumatic uevghyod18/26/2023 Intractable chronic migraine without aura and without status migrainosus 07/29/2022ilateral occipital pouxfgfaq99/26/2023AD (generalized anxiety disorder)07/29/2022sychogenic nonepileptic buvgrjw4603/30/20220154Sdofegk15/26/2022 Seizure-like /25/2022 Social History Tobacco UseTypesPacks/DayYears UsedDateSmoking Tobacco: Every DayCigarettes Smokeless Tobacco: Never Tobacco Cessation:Ready to Q uit: Not Asked Alcohol UseStandard Drinks/WeekCommentsYes0 (1 standard drink = 0.6 oz pure alcohol)rarePHQ-2AnswerDate RecordedPHQ-2 szvfq547rea Deprivation Index AnswerDate RecordedNational Score (1-100), lower number is lower risk89 03/08/2023State Score (1-10), lower number is lower zixt08703/08/2023ata from: https://www.neighborhoodatlas.medicine.[facility].edu/. Last address used for [address]ecrmvkb[address] [facility]03/08/2023CommentsNoSex and Gender Information ValueDate RecordedSex Assigned at YxbrlUffgob43/01/2022 11:04 AM EDTLegal Sex Lbgdha9910/25/2014 3:08 PM EDTGender AunbueoqNkygxl03/01/2022 11:04 AM EDTSexual AovaqkrnlpmApylrhdq84/01/2022 11:04 AM EDT Last Filed Vital Signs Vital SignReadingTime TakenCommentsBlood Bkbytfun631/75003/08/2023 9:17 AM EDT Vaind3561/05/2023 9:17 AM VZOXhsxnrbhbtq13.8 ??C (98.2 ??F)08/20/2022 9:33 AM ESTRespiratory Hyra730403/30/2022 4:00 PM EDTOxygen Ynkvfsyycm39%03/08/2023 9:17 AM EDTInhaled Oxygen Concentration--Jpxijl73.4 kg (144 lb 3.2 oz)03/08/2023 9:17 AM DLJGmzuty132.8 cm (5' 10 )03/08/2023 9:17 AM EDTBody Mass Index20.69 03/08/2023 9:17 AM EDT Plan of Treatment Health MaintenanceDue DateLast DoneCommentsDepression Kyqsimcbu70/15/2011HIV Pvaocrxmh84/15/2011Hepatitis C Ytxjagaxk09/15/2011Hepatitis B Vaccine (1 of 3 - 19+ 3-dose series)2012Pneumococcal Vaccine (1 of 2 - PCV)2012 Cervical Cancer Nprxcajrp98/15/2014HPV Vaccine (1 - 3-dose SCDM series) 2020Covid-19 Vaccine (1 - season)2025Influenza Vaccine (#1) 2025DTaP,Tdap,Td Vaccine (2 - Td or Tdap) Insurance * Guarantor: Ozzie Shea TypeRelation to PatientDate of PhoneBilling [id number] [address] [facility] [address] [place] [address] MemberSubscriberPlan / Payer (Effective 2022-Present)Name:Ozzie Shea Relation to Subscriber:SelfName:Ozzie Shea Payer ID:[id number] (NAIC) Group ID:[id number] Type:Medicaid Address: [address] [place] [id number] Care Teams Team MemberRelationshipSpecialtyStart DateEnd Date Stephen Nolasco DO PCP - GeneralFamily Medicine10/25/14
--- OUTSIDE RECORDS SUMMARY | 2025-05-08 20:23 | XMS_ITS | Encounter Summary ---
Author Organization [facility] Address [address], [address] [place] [address] Care Team Providers Care Wet Inspector Optical Glass Name Role Phone Stephen Nolasco DO Primary Care Provider [phone] Encounter Details DateTypeDepartmentCare Team (Latest Contact Info)Ftvbrreruvv63/23/2025Results Follow-Up [facility] Primary [facility] [address] [place], [place] [id number] Stephen Nolasco DO [address] [place] [address] Social History Tobacco UseTypesPacks/DayYears UsedDateSmoking Tobacco: Some HngoXqlfvbttxc425.8 Started: 07/04/2007Smokeless Tobacco: CurrentAlcohol UseStandard Drinks/Week CommentsYes2 (1 standard drink = 0.6 oz pure alcohol)sociallyOverall Financial Resource Strain (CARDIA)AnswerDate RecordedHow hard is it for you to pay for the very basics like food, housing, medical care, and heating?Not hard at all 04/12/2023HQ-2AnswerDate RecordedPHQ-9 Total Vlchh258PRAPARE - TransportationAnswerDate RecordedLack of Transportation (Medical)Not on [...] were you homeless or living in a mcfp (including now)?No04/23/2025UDIT-CAnswerDate RecordedQ1: How often do you [...] Domain Source: IP Abuse ScreeningAnswerDate Recorded Physical zwjziIuzlca82/29/2025Verbal qatinQuhiih81/29/2025Emotional abuseDenies 08/01/2024Financial ulheoHixhkd60/29/2025Sexual liyvvBndacp70/29/2025 CommentsNoSex and Gender InformationValueDate RecordedSex Assigned at Dwjwhk40/ 9:11 AM EDTLegal LagIqfgxl95/06/2019 9:47 AM EDTGender Identity Tumggy4804/16/2025 9:11 AM EDTSexual JringhgeogaNsvtcczq68/14/2025 9:11 AM EDT documented as of this encounter Plan of Treatment DateTypeDepartmentCare Team (Latest Contact Info)Rvmebbrivnm63/22/2026 10:30 AM EDTOffice Visit [facility] [address] [place] [address] Stephen Nolasco DO [address] [place] [address] Annual physicaldocumented as of this encounter Visit Diagnoses Not on filedocumented in this encounter Care Teams Team MemberRelationshipSpecialtyStart DateEnd Date Stephen Nolasco DO [address] [place] [address] PCP - GeneralFamily Sricemjo51/10/23documented as of this encounter
--- OUTSIDE RECORDS SUMMARY | 2025-05-08 20:23 | XMS_ITS | Encounter Summary ---
Author Organization [facility] Address [address] [place] [address] Care Team Providers Care Felt Hanger Name Role Phone Stephen Nolasco MD Primary Care Provider [phone] Encounter Details DateTypeDepartmentCare Team (Latest Contact Info)Icvdmyrrkhz81/05/2025amboo flowsheet [facility] [address] [place] [address] Ken Floyd DO [address] [place], [place] [address] Social History Tobacco UseTypesPacks/DayYears UsedDateSmoking Tobacco: AnmcgknGjajgawhkm714.8 Started: 2007 Comments:Current Smoker, Viktor quency Unknown Alcohol UseStandard Drinks/WeekCommentsNever0 (1 standard drink = 0.6 oz pure alcohol)caffeine: 2-3 glasses a week teaCommentsNoSex and Gender InformationValueDate RecordedSex Assigned at JckwcTrtjmw70/10/2023 11:44 AM EDT Legal HdyBgswpv82/15/2023 7:06 PM EDTGender AxnaomfcRiumow91/10/2023 11:44 AM EDTSexual VymwfcvdxgvOikgpkua82/10/2023 11:44 AM EDTdocumented as of this encounter Plan of Treatment DateTypeDepartmentCare Team (Latest Contact Info)Schkeaavvov40/11/2026 1:00 PM ESTProcedure Visit [facility] [address] [place] [address] Ken Floyd, DO [address] [place] [address] documented as of this encounter Visit Diagnoses Not on filedocumented in this encounter Care Teams Team MemberRelationshipSpecialtyStart DateEnd Date Stephen Nolasco MD [address] [place] [address] PCP - GeneralGeneral Practice03/14/23documented as of this encounter
--- OUTSIDE RECORDS SUMMARY | 2025-05-08 20:24 | XMS_ITS | Clinical Summary ---
Author Organization [facility] Address [address] [place] [address] Care Team Providers Care Milk Powder Grinder Name Role Phone No, Physician Primary Care Provider Unavailabl e Allergies Active AllergyReactionsCriticalityNoted DateCommentsCodeineGI Intolerance 12/23/20189149ViolsbnbhtePamcp10/22/3921VrwlvskwOtqko27/22/2019DiazepamHives 12/23/2018 Medications MedicationSigDispense QuantityRefillsLast FilledStart DateEnd DateStatus multivitamin (THERAGRAN) per tablet Take 1 tablet by mouth daily .Active Social History Tobacco UseTypesPacks/DayYears UsedDateSmoking Tobacco: Every DaySmokeless Tobacco: NeverAlcohol UseStandard Drinks/WeekCommentsNever0 (1 standard drink = 0.6 oz pure alcohol)AUDIT-CAnswerDate RecordedFrequency of Alcohol Consumption Never12/23/2018Average Number of DrinksNot on file12/23/2018Frequency of Binge DrinkingNot on file12/23/2018CommentsNoSex and Gender InformationValue Date RecordedSex Assigned at BirthNot on fileLegal WxdPtdpie47/22/2019 8:58 PM EDTGender IdentityNot on fileSexual OrientationNot on file Last Filed Vital Signs Vital SignReadingTime TakenCommentsBlood Ghtkvwyz113/6906 1:15 AM EDT Ovtnh4083 1:15 AM ILQLgnxudaqwun33.7 ??C (98.1 ??F)12/24/2018 1:00 AM EDTRespiratory Gxiy125912/24/2018 1:15 AM EDTOxygen Kygkyyrtjg70%12/24/2018 1:15 AM EDTInhaled Oxygen Concentration--Vnxkaq94 kg (130 lb)12/23/2018 9:02 PM EDT Wwcieu611.7 cm (5' 8 )12/23/2018 9:02 PM EDTBody Mass Index19.77012/23/2018 9:02 PM EDT Plan of Treatment Health MaintenanceDue DateLast DoneCommentsMMR Vaccines (1 of 1 - Standard series)1994Wellness Visit1996Depression Screening/Follow-Up (PHQ-2/9)2005Varicella Vaccines (1 of 2 - 13+ 2-dose series)2006HIV Clgszmwyt83/15/2008Hepatitis C Omsryotsw43/15/2011Hepatitis B Vaccines (1 of 3 - 19+ 3-dose series)2012Tetanus/Diphtheria/Pertussis (1 - Tdap)2012Pap Smear2014HPV Vaccines (1 - 3-dose SCDM series)2020Cervical Cancer Phxleqtie12/15/2023HPV/Loppzq603COVID-19 Vaccine (1 - season) 2025Influenza Vaccine (#1)2025Zoster [...] file Group ID:[id number] Type:Not on file Address: [place] [id number] Care Teams Team MemberRelationshipSpecialtyStart DateEnd Date No, Physician [facility] PCP - General12/23/18
--- OUTSIDE RECORDS SUMMARY | 2025-05-08 20:24 | XMS_ITS | Encounter Summary ---
Author Organization [facility] Address [address] [place] [address] Care Team Providers Care Microelectronics Engineer Name Role Phone Stephen Nolasco MD Primary Care Provider [phone] Encounter Details DateTypeDepartmentCare Team (Latest Contact Info)Sjibeywqnfg30/05/2025Travel Social History Tobacco UseTypesPacks/DayYears UsedDateSmoking Tobacco: YnzsocgCojkywntls876.8 Started: 2007 Comments:Current Smoker, Viktor quency Unknown Alcohol UseStandard Drinks/WeekCommentsNever0 (1 standard drink = 0.6 oz pure alcohol)caffeine: 2-3 glasses a week teaCommentsNoSex and Gender InformationValueDate RecordedSex Assigned at BrkvkLprrjt87/10/2023 11:44 AM EDT Legal RjuCstcin62/15/2023 7:06 PM EDTGender WnrempebBvfhks79/10/2023 11:44 AM EDTSexual SdgzpzwyipzPpcfoquc18/10/2023 11:44 AM EDTdocumented as of this encounter Plan of Treatment DateTypeDepartmentCare Team (Latest Contact Info)Vcljkddkgzb77/11/2026 1:00 PM ESTProcedure Visit [facility] [address] [place] [address] Ken Floyd DO [address] [place] [address] documented as of this encounter Visit Diagnoses Not on filedocumented in this encounter Care Teams Team MemberRelationshipSpecialtyStart DateEnd Date Stephen Nolasco MD [address] [place], [place] [id number] PCP - GeneralGeneral Practice03/14/23documented as of this encounter
== END 2025-05-08 20:20 | disposition home or self-care (01) ==
LOC: LAB 20:19
PROVIDERS: PCP Family Medicine; Visit Provider Obstetrics & Gynecology
DX: Z01.419 Encounter for gynecological examination (general) (routine) without abnormal findings (principal); E28.2 Polycystic ovarian syndrome; Z90.710 Acquired absence of both cervix and uterus; R45.4 Irritability and anger; N95.1 Menopausal and female climacteric states
CPT/HCPCS: 36415; 82626; 82627; 82670; 83001; 83002; 83036; 84144; 84439; 84443; 84702; 85025; 87624; 88175